=== PATIENT | male | born 1935 | race American Indian/Alaskan Native ===

== ENCOUNTER 2018-10-02 09:41 | Emergency (ER) | payer SELFPAY ==
[2018-10-02 10:15] LABS: Absolute Lymphocytes (CBC) 0.7 K/uL (0.7-4.9); Absolute Monocytes 0.3 K/uL (0.1-1.3); Absolute Neutrophil 2.9 K/uL (1.8-8.0); Basophils % 0.9 % (0-1.3); Eosinophils % 11.5 % (0-4.4); Hematocrit 35.7 % (39.6-49.0); MCH 29.4 pg (27.0-35.0); MCV 85.7 fL (80-100); MPV 8.1 fL (7.6-11.3); Monocytes % 7.3 % (3.3-12.3); RBC Red Blood Cell Count 4.17 M/uL (4.33-5.43)
[2018-10-02] MEDS ORDERED: OLANZapine 10 MG TABLET PO ONE (10:15)
[2018-10-02 10:18] LABS: Protime INR 0.97
[2018-10-02 10:35] LABS: ALT/SGPT 25 U/L (12-78); AST/SGOT 15 U/L (15-37); Albumin 3.2 g/dL (3.4-5.0); Alkaline Phosphatase 85 U/L (45-117); BUN Blood Urea Nitrogen 19 mg/dL (7-18); Bicarbonate 25 mmol/L (21-32); Bilirubin Direct < 0.1 mg/dL (0-0.2); Bilirubin Total 0.3 mg/dL (0.2-1.0); Glucose Level 123 mg/dL (74-106); Protein, Total 6.8 g/dL (6.4-8.2); Sodium Level 141 mmol/L (136-145)
[2018-10-02 11:22] LABS: Barbiturates NEGATIVE (NEGATIVE); Benzodiazepines NEGATIVE (NEGATIVE); Cocaine NEGATIVE (NEGATIVE); METHAMPHETAM NEGATIVE (NEGATIVE); Methadone NEGATIVE (NEGATIVE); Opiates NEGATIVE (NEGATIVE); Phencyclidine NEGATIVE (NEGATIVE); THC Cannibis NEGATIVE (NEGATIVE)
--- NOTE | 2018-10-02 12:58 | EKG ---
Test Date: 2018-10-02 Test Time: 10:23:58 Male Impersonator: LEMUEL MEASUREMENT RESULTS: Intervals: Rate: 75 ND: 212 QRSD: 94 QT: 392 QTc: 437 [place]: P: 61 ND: 212 QRS: -8 T: 29 INTERPRETIVE STATEMENTS: Sinus rhythm with sinus arrhythmia with 1st degree AV block Otherwise normal ECG No previous ECG available for comparison Electronically Signed On 10-02-18 12:57:33 TRANSFER PROFESSOR by Torres Vizcarra
--- NOTE | 2018-10-02 15:58 | EDPHYS ---
Physician Documentation [facility] Name: Jose Thomas Age: 83 yrs Sex: Male : 1935 Arrival Date: 10/02/2018 Time: 09:44 Bed 5 Private MD: ED Physician Heide Tovar HPI: 10/02 10:12 This 83 yrs old Male presents to ER via EMS with complaints of Depression. ma2 10:12 The patient presents to the emergency department with depression. Onset: The ma2 symptoms/episode began/occurred gradually, 1 week(s) ago. Associated signs and symptoms: Pertinent positives; Pertinent negatives: abdominal pain, chest pain, fever, headache, shortness of breath, substance abuse, suicide ideation, vomiting. Severity of symptoms: At their worst the symptoms were moderate severe in the emergency department the symptoms. The patient has experienced similar episodes in the past. off his medication for 1 month . Historical: - Allergies: 09:47 No Known Allergies; sv - PMHx: 09:47 Bipolar disorder; Depression; sv - Immunization history:: Adult Immunizations up to date, Flu vaccine is up to date. - Social history:: Smoking status: Patient/guardian denies using tobacco, Patient/guardian denies using alcohol, street drugs, The patient lives with family. - Ebola Screening: : No symptoms or risks identified at this time. - Family history:: not pertinent, pertinent for. - Hospitalizations: : No recent hospitalization is reported. ROS: 10:12 Constitutional: Negative for fever, chills, and weight loss, Neck: Negative for injury, ma2 pain, and swelling, Respiratory: Negative for shortness of breath, cough, wheezing, and pleuritic chest pain. 10:12 Psych: Positive for depression. 10:12 All other systems are negative. Exam: 10:12 Constitutional: This is a well developed, well nourished patient who is awake, alert, ma2 and in no acute distress. Chest/axilla: Normal chest wall appearance and motion. Nontender with no deformity. No lesions are appreciated. Cardiovascular: Regular rate and rhythm with a normal S1 and S2. No gallops, murmurs, or rubs. Normal PMI, no JVD. No pulse deficits. Respiratory: Lungs have equal breath sounds bilaterally, clear to auscultation and percussion. No rales, rhonchi or wheezes noted. No increased work of breathing, no retractions or nasal flaring. 10:12 Psych: Affect is flat, Oriented to person, place, time, Patient has no thoughts/intents to harm self or others. Vital Signs: 09:35 BP 137 / 86; Pulse 77; Resp 18; Temp 97.4; Pulse Ox 99% ; Weight 99.79 kg; Height 5 ft. sv 9 in. (175.26 cm); Pain 8/10; 10:53 BP 130 / 81; Pulse 63; Resp 18; Pulse Ox 97% ; sv 11:34 BP 132 / 74; Pulse 61; Resp 18; Pulse Ox 97% ; ph 12:36 BP 136 / 69; Pulse 67; Resp 18; Pulse Ox 99% ; sv 13:38 Pulse 70; Resp 16; Pulse Ox 99% ; sv 15:23 BP 146 / 93; Pulse 80; Resp 18; Pulse Ox 98% on NC; sv 09:35 Body Mass Index 32.49 (99.79 kg, 175.26 cm) sv MDM: 09:45 Patient medically screened. ma2 10:12 Differential diagnosis: acute psychotic break, depression, psychosis secondary to ma2 non-compliance. 12:27 Data reviewed: vital signs, nurses notes. ma2 12:27 Counseling: I had a detailed discussion with the patient and/or guardian regarding: the [facility] historical points, exam findings, and any diagnostic results supporting the discharge/admit diagnosis, the presence of at least one elevated blood pressure reading (>120/80) during this emergency department visit, the need for outpatient follow up. Medical screen evaluation completed. [facility] emergency medical condition absent. Response to treatment: the patient's symptoms have markedly improved after treatment. ED course: medically cleared,, will have mobile psych assessment team evaluate him.. received Zyprexa in er . 15:56 ED course: no SI, psych will see him in the office in 2 days,. ma2 10/02 09:56 Order name: Acetaminophen; Complete Time: 12:27 ma2 10/02 09:56 Order name: Basic Metabolic Panel; Complete Time: 12:27 ma2 10/02 09:56 Order name: CBC with Diff; Complete Time: 12:27 ma2 10/02 09:56 Order name: ETOH Level; Complete Time: 12:27 ma2 10/02 09:56 Order name: Hepatic Function; Complete Time: 12:27 [facility] 10/02 09:56 Order name: PT-INR; Complete Time: 12:27 [facility] 10/02 09:56 Order name: Ptt, Activated; Complete Time: 12:27 ca10/02 09:56 Order name: Salicylate; Complete Time: 12:27 [facility] 10/02 09:56 Order name: Urine Drug Screen; Complete Time: 12:27 [facility] 10/02 09:56 Order name: EKG; Complete Time: 09:57 ca2 10/02 09:56 Order name: EKG - Nurse/Tech; Complete Time: 10:50 ca10/02 09:56 Order name: IV Saline Lock; Complete Time: 10:03 [facility] 10/02 09:56 Order name: Labs collected and sent; Complete Time: 10:03 [facility] 10/02 09:56 Order name: Urine Dipstick-Ancillary (obtain specimen); Complete Time: 13:30 ma Administered Medications: 10:42 Drug: ZyPREXA 20 mg Route: PO; sv 13:29 Follow up: Response: No adverse reaction sv Disposition: 10/02/18 15:57 Discharged to Home. Impression: Major depressive disorder, recurrent. - Condition is Stable. - Prescriptions for Zyprexa 10 mg Oral Tablet - take 1 tablet by ORAL route once daily; 20 tablet. - Medication Reconciliation Form, Thank You Letter, Antibiotic Education, Prescription Opioid Use form. - Follow up: Private Physician; When: Tomorrow; Reason: Continuance of care. Signatures: Dispatcher [facility] Ling Christiansen RN RN sv Alzahri, Mohammad, MD MD ma2 Corrections: (The following items were deleted from the chart) 16:43 15:57 10/02/2018 15:57 Discharged to Home. Impression: Major depressive disorder, sv recurrent. Condition is Stable. Forms are Medication Reconciliation Form, Thank You Letter, Antibiotic Education, Prescription Opioid Use. Follow up: Private Physician; When: Tomorrow; Reason: Continuance of care. ma2
--- NOTE | 2018-10-02 15:58 | ER ---
Nurse's Notes [facility] Name: Jose Thomas Age: 83 yrs Sex: Male : 1935 Arrival Date: 10/02/2018 Time: 09:44 Bed 5 Private MD: Diagnosis: Major depressive disorder, recurrent Presentation: 10/02 09:34 Presenting complaint: EMS states: called out for back pain but pt's only complaint is sv being depressed x 3 days. Pt has been out of his Bipolar medications for about a month. Transition of care: patient was not received from another setting of care. Onset of symptoms was September 29, 2018. Risk Assessment: Do you want to hurt yourself or someone else? Patient reports no desire to harm self or others. Initial Sepsis Screen: Does the patient meet any 2 criteria? No. Patient's initial sepsis screen is negative. Does the patient have a suspected source of infection? No. Patient's initial sepsis screen is negative. Care prior to arrival: None. 09:34 Method Of Arrival: EMS: [facility] sv 09:34 Acuity: HAO 4 sv 09:35 Presenting complaint: Patient states: that he was in [facility] last month for the same thing and was sent home with medications but ran out and did not have enough money to pay for them again. Pt denies suicidal or homicidal ideation. Triage Assessment: 09:35 General: Appears in no apparent distress. comfortable, well groomed, well developed, sv Behavior is calm, cooperative, appropriate for age. Pain: Denies pain. EENT: No signs and/or symptoms were reported regarding the EENT system. Neuro: Level of Consciousness is awake, alert, obeys commands, Oriented to person, place, time, situation, Moves all extremities. Full function Gait is steady, Speech is normal, Facial symmetry appears normal. Cardiovascular: Patient's skin is warm and dry. Respiratory: Respiratory effort is even, unlabored, Respiratory pattern is regular, symmetrical. Derm: Skin is pink, warm \T\ dry. Historical: - Allergies: 09:47 No Known Allergies; sv - PMHx: :47 Bipolar disorder; Depression; sv - Immunization history:: Adult Immunizations up to date, Flu vaccine is up to date. - Social history:: Smoking status: Patient/guardian denies using tobacco, Patient/guardian denies using alcohol, street drugs, The patient lives with family. - Ebola Screening: : No symptoms or risks identified at this time. - Family history:: not pertinent, pertinent for. - Hospitalizations: : No recent hospitalization is reported. Screenin:49 Abuse screen: Denies threats or abuse. Denies injuries from another. Nutritional sv screening: No deficits noted. Tuberculosis screening: No symptoms or risk factors identified. Fall Risk None identified. Assessment: 11:33 Reassessment: Patient appears in no apparent distress at this time. Patient and/or ph family updated on plan of care and expected duration. Pain level reassessed. Patient is alert, oriented x 3, equal unlabored respirations, skin warm/dry/pink. Pt resting quietly, VSS. 13:38 Reassessment: Patient appears in no apparent distress at this time. No changes from sv previously documented assessment. Patient and/or family updated on plan of care and expected duration. Pain level reassessed. Patient is alert, oriented x 3, equal unlabored respirations, skin warm/dry/pink. Pt informed we are waiting for [facility] to [facility] speak with the pt. 14:15 Reassessment: Patient appears in no apparent distress at this time. No changes from sv previously documented assessment. Patient and/or family updated on plan of care and expected duration. Pain level reassessed. Patient is alert, oriented x 3, equal unlabored respirations, skin warm/dry/pink. 15:26 Reassessment: Patient appears in no apparent distress at this time. No changes from sv previously documented assessment. Patient and/or family updated on plan of care and expected duration. Pain level reassessed. Patient is alert, oriented x 3, equal unlabored respirations, skin warm/dry/pink. Valery from [facility] at bedside speaking with the pt. 16:13 Reassessment: Patient appears in no apparent distress at this time. No changes from sv previously documented assessment. Patient and/or family updated on plan of care and expected duration. Pain level reassessed. Patient is alert, oriented x 3, equal unlabored respirations, skin warm/dry/pink. 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 sv 16:37 Reassessment: Waiting for bus pass for pt from subwarehouse supervisor. sv Psych: 09:49 Subjective: Delusions are denied, Hallucinations are denied. Objective: Patient is sv cooperative, Speech is normal, Affect is appropriate. Suicide Risk Assessment: Sad Person Scale: Sex of patient: Male: Score 1 point. Age of patient: Score 1 point if patient is over 65. Depression: Score 1 point if signs of depression are present. Previous Attempt: Score 1 point if patient has previously attempted suicide. Substance Abuse: Score 0 point if patient does not abuse alcohol or drugs. Rational Thinking: Score 0 point if patient has rational thinking. Social Support: Score 0 if social support is present/available. Organized Plan: Score 0 if patient did not have an organized plan in place. Relationship: Score 1 point if patient is , , , or for a single male Chronic Sickness: Score 0 point if patient does not have a chronic illness, debilitating, or severe disorder. TOTAL POINTS: If total points are 5-6, proposed clinical action is to strongly consider hospitalization, depending upon confidence in the follow-up arrangement. Implement suicide precautions. Pt denies substance abuse. Vital Signs: 09:35 BP 137 / 86; Pulse 77; Resp 18; Temp 97.4; Pulse Ox 99% ; Weight 99.79 kg; Height 5 ft. sv 9 in. (175.26 cm); Pain 8/10; 10:53 BP 130 / 81; Pulse 63; Resp 18; Pulse Ox 97% ; sv 11:34 BP 132 / 74; Pulse 61; Resp 18; Pulse Ox 97% ; ph 12:36 BP 136 / 69; Pulse 67; Resp 18; Pulse Ox 99% ; sv 13:38 Pulse 70; Resp 16; Pulse Ox 99% ; sv 15:23 BP 146 / 93; Pulse 80; Resp 18; Pulse Ox 98% on NC; sv 09:35 Body Mass Index 32.49 (99.79 kg, 175.26 cm) sv ED Course: 09:44 Patient arrived in ED. sv 09:44 Ling Royal RN is Primary Nurse. sv 09:45 Heide Tovar MD is Attending Physician. ma2 09:47 Triage completed. sv 09:48 Arm band placed on Patient placed in an exam room, on a stretcher, on pulse oximetry. sv 09:49 Patient has correct armband on for positive identification. Bed in low position. Call sv light in reach. Door closed. Warm blanket given. Head of bed elevated. 10:00 Initial lab(s) drawn, by me, sent to lab. Inserted saline lock: 20 gauge in left hand, sv using aseptic technique. Blood collected. Flushed left hand with 5 ml normal saline. 10:24 EKG done, by medical chief technician. reviewed by Heide Tovar MD. [facility] 10:27 Urine Drug Screen Sent. [facility] 10:27 Urine collected: clean catch specimen, clear. [facility] 10:40 Warm blanket given. ASSISTANCE WITH GETTING CLEANED UP AND CHANGING BEDDING . [facility] 13:23 called [facility] and spoke with Veena. She will call a screener to come gm evaluate the patient. 16:13 No provider procedures requiring assistance completed. IV discontinued, intact, sv bleeding controlled, No redness/swelling at site. Pressure dressing applied. Administered Medications: 10:42 Drug: ZyPREXA 20 mg Route: PO; sv 13:29 Follow up: Response: No adverse reaction sv Output: 13:39 Urine: 1000ml (Voided); Total: 1000ml. sv Outcome: 15:57 Discharge ordered by . [facility] 16:13 Discharged to home ambulatory. sv 16:13 Condition: stable 16:13 Discharge instructions given to patient, Instructed on discharge instructions, follow up and referral plans. medication usage, Demonstrated understanding of instructions, follow-up care, medications, Prescriptions given X 1. 16:43 Patient left the ED. sv Signatures: Ling Royal RN Jolene Maxwell, life science research assistant EKG Tat1 Bailey Stone RN RN Linh London [facility] Heide Tovar MD MD tx2 Luiza Caceres Corrections: (The following items were deleted from the chart) 09:49 09:35 Presenting complaint: Patient states: that he was in [facility] last month for sv the same thing and was sent home with medications but ran out and did not have enough money to pay for them again. sv
== END 2018-10-02 16:43 | disposition home or self-care (01) ==
LOC: ER 09:41
DX: F33.0 Major depressive disorder, recurrent, mild (principal); I44.0 Atrioventricular block, first degree
CPT/HCPCS: 36415; 80048; 80076; 80307; 80320; 80329; 85025; 85610; 85730; 93005; 99284

== ENCOUNTER 2018-11-30 19:55 | Observation (INO) | payer OTHER, SELFPAY ==
[2018-11-30 20:30] LABS: Absolute Lymphocytes (CBC) 0.9 K/uL (0.7-4.9); Absolute Monocytes 0.5 K/uL (0.1-1.3); Absolute Neutrophil 2.6 K/uL (1.8-8.0); Basophils % 0.8 % (0-1.3); Eosinophils % 22.7 % (0-4.4); Hematocrit 43.4 % (39.6-49.0); Lymphocytes % 17.6 % (15.3-44.8); MPV 7.9 fL (7.6-11.3); Monocytes % 9.1 % (3.3-12.3); RBC Red Blood Cell Count 5.04 M/uL (4.33-5.43)
[2018-11-30 20:31] LABS: Protime INR 0.94
--- NOTE | 2018-11-30 20:49 | RAD REPORT ---
EXAM DESCRIPTION: CT - Head C Spine Mpr Wo Con - 11/30/2018 8:28 pm CLINICAL HISTORY: Head and neck injury status post fall. Head and neck pain COMPARISON: None. TECHNIQUE: Computed axial tomography of the head and cervical spine was obtained. Sagittal and coronal reconstruction was performed. All CT scans are performed using dose optimization technique as appropriate and may include automated exposure control or mA/KV adjustment according to patient size. FINDINGS: An intracranial bleed is not seen. Cerebral atrophy is noted. An extra-axial fluid collect ion is not noted. Partial opacification of sphenoid sinus is present consistent with sinusitis. Masto ids are clear A cervical fracture is not visualized. No dislocation is noted. 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 Moderate narrowing left neural foramina is present. Minimal posterior beltran bluxation of C6 on C7 is present IMPRESSION: No acute intracranial abnormality is seen. A cervical fracture is not visualized. If the patient continues to have symptoms to suggest intracra nial /spinal cord pathology then MRI would be recommended
--- NOTE | 2018-11-30 20:50 | RAD REPORT ---
EXAM DESCRIPTION: Johnnie Single View11/30/2018 8:45 pm CLINICAL HISTORY: Chest pain COMPARISON: none FINDINGS: The lungs appear clear of acute infiltrate. The heart is borderline enlarged IMPRESSION: No acute abnormalities displayed
--- NOTE | 2018-11-30 20:52 | RAD REPORT ---
EXAM DESCRIPTION: RAD - Pelvis - 11/30/2018 8:45 pm CLINICAL HISTORY: Pelvic pain status post injury FINDINGS: No fracture or dislocation is seen. The bones are osteoporotic
[2018-11-30 20:55] LABS: ALT/SGPT 25 U/L (12-78); AST/SGOT 21 U/L (15-37); Alkaline Phosphatase 92 U/L (45-117); BUN Blood Urea Nitrogen 12 mg/dL (7-18); Bicarbonate 24 mmol/L (21-32); Bilirubin Direct 0.1 mg/dL (0-0.2); Bilirubin Total 0.6 mg/dL (0.2-1.0); Creatine Phosphokinase 210 U/L (39-308); Glucose Level 112 mg/dL (74-106); Magnesium 2.4 mg/dL (1.8-2.4); NT PRO-BNP 88 pg/mL (<450); Potassium 4.1 mmol/L (3.5-5.1); Protein, Total 7.9 g/dL (6.4-8.2); Sodium Level 138 mmol/L (136-145); Troponin (Emerg Dept Use Only) < 0.02 ng/mL (0.0-0.045)
[2018-11-30] MEDS ORDERED: HYDRALAZINE HCL 20 MG/ML VIAL ONE (21:02)
[2018-11-30 21:48] LABS: Blood Morphology Comment NOT SEEN (NOT SEEN); Platelet Estimate ADEQ
--- NOTE | 2018-11-30 22:53 | EDPHYS ---
Physician Documentation [facility] Name: Jose Thomas Age: 83 yrs Sex: Male : 1935 Arrival Date: 11/30/2018 Time: 19:56 Bed 3 Private MD: ED Physician Tanner Evans HPI: 11/30 21:05 This 83 yrs old Male presents to ER via EMS with complaints of General weakness, jr8 Headache. 21:05 Patient came in via EMS for fall yesterday. Patient alert and oriented to person, jr8 place, time, event upon arrival. Stated that he remembers getting dizzy yesterday and then fell. Stated that he felt short of breath today. Positive for syncope. [facility] since yesterday. EMS called this evening for transport. Complains only of headache. . Severity of symptoms: At their worst the symptoms were moderate in the emergency department the symptoms are unchanged. The patient has not experienced similar symptoms in the past. The patient has not recently seen a physician. Historical: - Allergies: 20:19 No Known Allergies; fc - PMHx: 20:19 Bipolar disorder; Depression; Hypertension; Myocardial infarction; Headaches; CVA; fc diptheria; - PSHx: 20:19 Hemorroids; fc - Immunization history:: Last tetanus immunization: unknown, Flu vaccine is not up to date. - Social history:: Smoking status: Patient/guardian denies using tobacco, Patient/guardian denies using alcohol, street drugs. - Ebola Screening: : Patient negative for fever greater than or equal to 101.5 degrees Fahrenheit, and additional compatible Ebola Virus Disease symptoms Patient denies exposure to infectious person Patient denies travel to an Ebola-affected area in the 21 days before illness onset. ROS: 21:05 Eyes: Negative for injury, pain, redness, and discharge, ENT: Negative for injury, jr8 pain, and discharge, Neck: Negative for injury, pain, and swelling, Cardiovascular: Negative for chest pain, palpitations, and edema, Respiratory: Negative for cough, wheezing, and pleuritic chest pain, Abdomen/GI: Negative for abdominal pain, nausea, vomiting, diarrhea, and constipation, Back: Negative for injury and pain, MS/Extremity: Negative for injury and deformity, Skin: Negative for injury, rash, and discoloration. 21:05 Neuro: Positive for dizziness, headache, syncope, Negative for altered mental status, gait disturbance, hearing loss, numbness, seizure activity, speech changes, tingling, tinnitus, tremor, visual changes, weakness. Exam: 21:05 Head/Face: Normocephalic, atraumatic. Eyes: Pupils equal round and reactive to light, jr8 extra-ocular motions intact. Lids and lashes normal. Conjunctiva and sclera are non-icteric and not injected. Cornea within normal limits. Periorbital areas with no swelling, redness, or edema. ENT: Nares patent. No nasal discharge, no septal abnormalities noted. Tympanic membranes are normal and external auditory canals are clear. Oropharynx with no redness, swelling, or masses, exudates, or evidence of obstruction, uvula midline. Mucous membranes moist. Neck: Trachea midline, no thyromegaly or masses palpated, and no cervical lymphadenopathy. Supple, full range of motion without nuchal rigidity, or vertebral point tenderness. No Meningismus. Chest/axilla: Normal chest wall appearance and motion. Nontender with no deformity. No lesions are appreciated. Cardiovascular: Regular rate and rhythm with a normal S1 and S2. No gallops, murmurs, or rubs. Normal PMI, no JVD. No pulse deficits. Respiratory: Lungs have equal breath sounds bilaterally, clear to auscultation and percussion. No rales, rhonchi or wheezes noted. No increased work of breathing, no retractions or nasal flaring. Abdomen/GI: Soft, non-tender, with normal bowel sounds. No distension or tympany. No guarding or rebound. No evidence of tenderness throughout. Back: No spinal tenderness. No costovertebral tenderness. Full range of motion. Skin: Warm, dry with normal turgor. Normal color with no rashes, no lesions, and no evidence of cellulitis. MS/ Extremity: Pulses equal, no cyanosis. Neurovascular intact. Full, normal range of motion. Neuro: Awake and alert, GCS 15, oriented to person, place, time, and situation. Cranial nerves II-XII grossly intact. Motor strength 5/5 in all extremities. Sensory grossly intact. Cerebellar exam normal. Normal gait. Vital Signs: 19:55 BP 192 / 137; Pulse 74; Resp 18; Temp 97.7(O); Pulse Ox 100% on R/A; Weight 106.59 kg fc (R); Height 5 ft. 10 in. (177.80 cm) (R); Pain 0/10; 20:59 BP 152 / 109; Pulse 72; Resp 14 S; Pulse Ox 100% on R/A; jd3 21:55 BP 167 / 107; Pulse 85; Resp 18 S; Pulse Ox 100% on R/A; jd3 22:56 BP 177 / 90; Pulse 89; Resp 17; Pulse Ox 100% on R/A; mt 12/01 00:17 BP 145 / 98; Pulse 91; Resp 22; Temp 98.2; Pulse Ox 98% on R/A; fc 00:20 BP 135 / 74; Pulse 89; Resp 17 S; Pulse Ox 100% on R/A; jd3 11/30 19:55 Body Mass Index 33.72 (106.59 kg, 177.80 cm) MDM: 11/30 20:08 Patient medically screened. [facility] 22:48 Data reviewed: vital signs, nurses notes, lab test result(s), EKG, radiologic studies, [facility] CT scan, plain films, and as a result, I will admit patient. Data interpreted: Pulse oximetry: on room air is 100 %. Interpretation: normal. Counseling: I had a detailed discussion with the patient and/or guardian regarding: the historical points, exam findings, and any diagnostic results supporting the discharge/admit diagnosis, lab results, radiology results, the need for further work-up and treatment in the hospital. 11/30 20:08 Order name: Basic Metabolic Panel; Complete Time: 21:07 11/30 20:08 Order name: CBC with Diff; Complete Time: 21:56 11/30 20:08 Order name: LFT's; Complete Time: 21:07 11/30 20:08 Order name: Magnesium; Complete Time: 21:07 11/30 20:08 Order name: NT PRO-BNP; Complete Time: 21:07 11/30 20:08 Order name: PT-INR; Complete Time: 20:46 11/30 20:08 Order name: Troponin (emerg Dept Use Only); Complete Time: 21:07 11/30 20:08 Order name: CK; Complete Time: 21:07 11/30 21:48 Order name: Manual Differential; Complete Time: 21:56 EDMS 11/30 23:14 Order name: Basic Metabolic Panel EDMS 11/30 23:14 Order name: Basic Metabolic Panel EDOK 11/30 23:14 Order name: CBC with Automated Diff EDMS 11/30 23:14 Order name: CBC with Automated Diff EDMS 11/30 23:14 Order name: Lipid Profile EDOK 11/30 20:08 Order name: XRAY Chest (1 view); Complete Time: 20:53 jr8 11/30 20:08 Order name: EKG; Complete Time: 20:10 8 11/30 20:08 Order name: Cardiac monitoring; Complete Time: 20:09 8 11/30 20:08 Order name: EKG - Nurse/Tech; Complete Time: 20:09 8 11/30 20:08 Order name: IV Saline Lock; Complete Time: 20:10 8 11/30 20:08 Order name: Labs collected and sent; Complete Time: 20:10 8 11/30 20:09 Order name: CT Head C Spine; Complete Time: 20:53 jr8 11/30 20:09 Order name: XRAY Pelvis; Complete Time: 21:07 8 11/30 23:13 Order name: Heart Healthy EDOK 11/30 23:13 Order name: Echo with Doppler EDOK 11/30 23:14 Order name: Lipid Profile EDOK 11/30 23:14 Order name: Troponin I EDOK 11/30 23:14 Order name: Troponin I EDOK 11/30 23:14 Order name: Troponin I [facility] 11/30 20:08 Order name: O2 Per Protocol; Complete Time: 20:10 8 11/30 20:08 Order name: O2 Sat Monitoring; Complete Time: 20:10 Administered Medications: 20:59 Drug: hydrALAZINE 10 mg Route: IV; Rate: calculated rate; Site: right forearm; jd3 12/01 00:26 Follow up: Response: No adverse reaction; IV Status: Completed infusion jd3 00:30 Drug: Tylenol 1000 mg Route: PO; 00:45 Follow up: Response: No adverse reaction jd3 Disposition: 22:34 Co-signature as Attending Physician, Tanner Evans MD I agree with the assessment and tw4 plan of care. Disposition: 11/30/18 22:52 Hospitalization ordered by Heide Mead for Observation. Preliminary diagnosis are Hypertensive Urgency, Syncope and collapse. - Bed requested for Telemetry/MedSurg (observation). - Status is Observation. jd3 - Condition is Stable. - Problem is new. - Symptoms have improved. UTI on Admission? No Signatures: Dispatcher [employer] EDMS Caroline Jalloh RN RN fc Roszak, Josh, PA PA jr8 Juan Floyd RN RN jd3 Tanner Evans MD MD tw4 Leo Mcmahon RN RN rr5 Corrections: (The following items were deleted from the chart) 11/30 22:50 21:05 Patient came in via EMS for fall yesterday. Patient alert and oriented to person, jr8 place, time, event upon arrival. Stated that he remembers getting dizzy yesterday and then fell. Has been on ground of [facility] since yesterday. EMS called this evening for transport. Complains only of headache . jr8 22:51 21:05 Eyes: Negative for injury, pain, redness, and discharge, ENT: Negative for jr8 injury, pain, and discharge, Neck: Negative for injury, pain, and swelling, Cardiovascular: Negative for chest pain, palpitations, and edema, Respiratory: Negative for shortness of breath, cough, wheezing, and pleuritic chest pain, Abdomen/GI: Negative for abdominal pain, nausea, vomiting, diarrhea, and constipation, Back: Negative for injury and pain, MS/Extremity: Negative for injury and deformity, Skin: Negative for injury, rash, and discoloration, jr8 22:51 21:05 Neuro: Positive for dizziness, headache, Negative for altered mental status, gait jr8 disturbance, hearing loss, loss of consciousness, numbness, seizure activity, speech changes, syncope, near syncope, tingling, tinnitus, tremor, visual changes, weakness, jr8 23:52 22:52 Hospitalization Ordered by Heide Mead MD for Observation. Preliminary rr5 diagnosis is Hypertensive Urgency; Syncope and collapse. Bed requested for Telemetry/MedSurg (observation). Status is Observation. Condition is Stable. Problem is new. Symptoms have improved. UTI on Admission? No. jr8 12/01 00:54 11/30 23:52 11/30/2018 22:52 Hospitalization Ordered by Heide Mead MD for jd3 Observation. Preliminary diagnosis is Hypertensive Urgency; Syncope and collapse. Bed requested for Telemetry/MedSurg (observation). Status is Observation. Condition is Stable. Problem is new. Symptoms have improved. UTI on Admission? No. rr5
--- NOTE | 2018-11-30 22:53 | ER ---
Nurse's Notes [facility] Name: Jose Thomas Age: 83 yrs Sex: Male : 1935 Arrival Date: 11/30/2018 Time: 19:56 Bed 3 Private MD: Diagnosis: Hypertensive Urgency;Syncope and collapse Presentation: 11/30 19:55 Method Of Arrival: EMS: [facility] 19:55 Presenting complaint: EMS states: that pt got up last night at midnight and fell. Has fc been lying on the floor since then. States that when he stands he gets dizzy. Also having on and off headaches. Transition of care: [facility]. Onset of symptoms was November 30, 2018 at 00:00. Risk Assessment: Do you want to hurt yourself or someone else? Patient reports no desire to harm self or others. Initial Sepsis Screen: Does the patient meet any 2 criteria? No. Patient's initial sepsis screen is negative. Does the patient have a suspected source of infection? No. Patient's initial sepsis screen is negative. Care prior to arrival: None. 19:55 Acuity: HAO 3 Triage Assessment: 19:55 Headache History: The patient has had previous headaches and this one is similar to previous episodes. 12/01 00:21 Pain: Pain level that patient reports is acceptable is 3 out of 10 on a pain scale. jd3 Pain began gradually, Also complains of decreased appetite. Historical: - Allergies: 11/30 20:19 No Known Allergies; fc - PMHx: 20:19 Bipolar disorder; Depression; Hypertension; Myocardial infarction; Headaches; CVA; fc diptheria; - PSHx: 20:19 Hemorroids; fc - Immunization history:: Last tetanus immunization: unknown, Flu vaccine is not up to date. - Social history:: Smoking status: Patient/guardian denies using tobacco, Patient/guardian denies using alcohol, street drugs. - Ebola Screening: : Patient negative for fever greater than or equal to 101.5 degrees Fahrenheit, and additional compatible Ebola Virus Disease symptoms Patient denies exposure to infectious person Patient denies travel to an Ebola-affected area in the 21 days before illness onset. Screenin:55 Abuse screen: Denies threats or abuse. Nutritional screening: No deficits noted. Tuberculosis screening: No symptoms or risk factors identified. Fall Risk Fall in past 12 months (25 points). Secondary diagnosis (15 points) TIA, No IV (0 pts). Ambulatory Aid- None/Bed Rest/Nurse Assist (0 pts). Gait- Weak (10 pts.). Mental Status- Overestimates/Forgets Limitations (15 pts.). Total Mario Fall Scale indicates High Risk Score (45 or more points). Fall prevention measures have been instituted. Side Rails Up X 2 Placed Close to Nursing Station Frequent Obs/Assessments Occuring As available patient and family educated on Fall Prevention Program and Strategies. Assessment: 20:00 General: Appears in no apparent distress. uncomfortable, Behavior is calm, cooperative, jd3 appropriate for age, Reports fatigue for. Pain: Denies pain. Neuro: Level of Consciousness is awake, alert, obeys commands, Oriented to person, place, time, situation, Appropriate for age Speech is normal, Reports a syncopal episode weakness. Cardiovascular: Heart tones S1 S2 present Capillary refill < 3 seconds Patient's skin is warm and dry. Respiratory: Airway is patent Respiratory effort is even, unlabored, Respiratory pattern is regular, symmetrical, Breath sounds are clear bilaterally. GI: Abdomen is round Bowel sounds present X 4 quads. Abd is soft and non tender X 4 quads. : No signs and/or symptoms were reported regarding the genitourinary system. EENT: No signs and/or symptoms were reported regarding the EENT system. Derm: Skin is intact, Skin is dry, Skin is normal, Skin temperature is warm. Musculoskeletal: Circulation, motion, and sensation intact. 20:59 Reassessment: Patient appears in no apparent distress at this time. Patient and/or jd3 family updated on plan of care and expected duration. Pain level reassessed. Patient is alert, oriented x 3, equal unlabored respirations, skin warm/dry/pink. 21:56 Reassessment: Patient appears in no apparent distress at this time. No changes from jd3 previously documented assessment. Patient and/or family updated on plan of care and expected duration. Pain level reassessed. Patient is alert, oriented x 3, equal unlabored respirations, skin warm/dry/pink. 22:30 Reassessment: Patient appears in no apparent distress at this time. No changes from jd3 previously documented assessment. Patient and/or family updated on plan of care and expected duration. Pain level reassessed. Patient is alert, oriented x 3, equal unlabored respirations, skin warm/dry/pink. 23:30 Reassessment: Patient appears in no apparent distress at this time. Patient and/or jd3 family updated on plan of care and expected duration. Pain level reassessed. Patient is alert, oriented x 3, equal unlabored respirations, skin warm/dry/pink. 12/01 00:20 Reassessment: Patient appears in no apparent distress at this time. Patient and/or jd3 family updated on plan of care and expected duration. Pain level reassessed. Patient is alert, oriented x 3, equal unlabored respirations, skin warm/dry/pink. 00:28 Reassessment: Pt complained of headache. Discussed with Isael MCCURDY and pt to get Tylenol fc 1000 mg po. Vital Signs: 11/30 19:55 BP 192 / 137; Pulse 74; Resp 18; Temp 97.7(O); Pulse Ox 100% on R/A; Weight 106.59 kg fc (R); Height 5 ft. 10 in. (177.80 cm) (R); Pain 0/10; 20:59 BP 152 / 109; Pulse 72; Resp 14 S; Pulse Ox 100% on R/A; jd3 21:55 BP 167 / 107; Pulse 85; Resp 18 S; Pulse Ox 100% on R/A; jd3 22:56 BP 177 / 90; Pulse 89; Resp 17; Pulse Ox 100% on R/A; mt 12/01 00:17 BP 145 / 98; Pulse 91; Resp 22; Temp 98.2; Pulse Ox 98% on R/A; fc 00:20 BP 135 / 74; Pulse 89; Resp 17 S; Pulse Ox 100% on R/A; jd3 11/30 19:55 Body Mass Index 33.72 (106.59 kg, 177.80 cm) ED Course: 11/30 19:55 No provider procedures requiring assistance completed. 19:55 Arm band placed on Patient placed in an exam room, on a stretcher. 19:55 Patient has correct armband on for positive identification. Placed in gown. Bed in low fc position. Call light in reach. Side rails up X2. monitoring engineer on. Pulse ox on. NIBP on. 19:56 Patient arrived in ED. al2 20:08 Isael Bravo PA is PHCP. jr8 20:08 Tanner Evans MD is Attending Physician. jr8 20:08 EKG done, by ED staff, reviewed by Tanner Evans MD. Inserted saline lock: 20 gauge mt in right forearm, using aseptic technique. by KRYSTAL Quiroz. 20:10 Triage completed. fc 20:22 Juan Floyd RN is Primary Nurse. jd3 20:[address] via stretcher. nj 20:28 CT Head C Spine In Process Unspecified. EDMS 20:29 CT completed. Patient tolerated procedure well. Patient moved back from CT. nj 20:44 XRAY Chest (1 view) In Process Unspecified. EDMS 20:46 XRAY Pelvis In Process Unspecified. EDMS 22:51 Heide Mead MD is Hospitalizing Provider. jr8 22:56 Cleaned of incontinence. aa1 12/01 00:16 Patient admitted, IV remains in place. fc Administered Medications: 11/30 20:59 Drug: hydrALAZINE 10 mg Route: IV; Rate: calculated rate; Site: right forearm; jd3 12/01 00:26 Follow up: Response: No adverse reaction; IV Status: Completed infusion jd3 00:30 Drug: Tylenol 1000 mg Route: PO; fc 00:45 Follow up: Response: No adverse reaction jd3 Outcome: 11/30 22:52 Decision to Hospitalize by Provider. jr8 12/01 00:16 Admitted to Tele accompanied by tech, via stretcher, room 426, with chart, Report fc called to Casie RICE Condition: good Discharge instructions given to family, Instructed on the need for admit, Demonstrated understanding of instructions. 00:54 Patient left the ED. jd3 Signatures: Dispatcher [employer] EDMS Gabriella Lopez RN RN aa1 Caroline Jalloh RN RN Isael Bravo PA PA jr8 She[place] mt Davies, Jonathon, RN RN jd3 Love, Angelica al2 Corrections: (The following items were deleted from the chart) 11/30 20:16 19:55 BP 192 / 137; Pulse 74bpm; Resp 18bpm; Pulse Ox 100% RA; 106.59 kg Reported; fc Height 5 ft. 10 in. Reported; BMI: 33.7; Pain 0/10; fc 20:24 20:00 Musculoskeletal: Circulation, motion, and sensation intact. Range of motion: jd3 intact in all extremities, jd3
[2018-11-30] MEDS ORDERED: ALPRAZOLAM 0.25 MG TABLET PO PRN (23:10)
[2018-11-30] MEDS ORDERED: MORPHINE 4 MG/ML SYR IV PRN (23:10)
[2018-11-30] MEDS ORDERED: ZOLPIDEM TARTRATE 5 MG TABLET PO PRN (23:10)
[2018-11-30] MEDS ORDERED: ACETAMINOPHEN 500 MG TAB PO PRN (23:10)
[2018-12-01] MEDS ORDERED: ACETAMINOPHEN 500 MG TAB ONE (00:40)
[2018-12-01 01:06] VITALS: BMI 32.8
[2018-12-01 03:57] LABS: Urine Appearance CLEAR; Urine Bilirubin NEGATIVE (NEG); Urine Blood NEGATIVE (NEG); Urine Color YELLOW; Urine Glucose NEGATIVE (NEG); Urine Protein NEGATIVE (NEG)
[2018-12-01 04:16] LABS: Urine Bacteria <20 /HPF (NONE SEEN); Urine Culture Reflex Order NOT NEEDED; Urine RBC <5 /HPF (NONE SEEN)
[2018-12-01 05:13] LABS: Absolute Monocytes 0.4 K/uL (0.1-1.3); Absolute Neutrophil 2.3 K/uL (1.8-8.0); Basophils % 1.1 % (0-1.3); Hematocrit 39.5 % (39.6-49.0); Lymphocytes % 21.8 % (15.3-44.8); MPV 8.2 fL (7.6-11.3); Monocytes % 8.8 % (3.3-12.3); RBC Red Blood Cell Count 4.67 M/uL (4.33-5.43)
[2018-12-01 05:23] LABS: Eosinophils % 20.9 % (0-4.4)
[2018-12-01 05:30] LABS: Potassium 3.7 mmol/L (3.5-5.1)
--- NOTE | 2018-12-01 05:47 | P.HP ---
Certification for Inpatient Patient admitted to: Observation With expected LOS: <2 Midnights Patient will require the following post-hospital care: None Practitioner: I am a practitioner with admitting privileges, knowledge of patient current condition, hospital course, and medical plan of care. Services: Services provided to patient in accordance with Admission requirements found in Title 42 Section 412.3 of the Code of Federal Regulations Patient History Date of Service: 11/30/18 Reason for admission: Syncope History of Present Illness: Patient is an 83-year-old gentleman who came into the hospital after passing out. Patient has been living at the [facility]. 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 He is only able to get food stamps since he is not a citizen. He is unable to get back to his family in [place]. He has a son and a daughter who still live in [facility] along with his grandchildren. He would love to get back there. He states he was not doing anything in particular when he suddenly passed out. He landed on his elbow and his knees. His knees are still sore. His workup in the ER was unremarkable. He will be monitored and worked up for a syncopal event. Allergies No Known Allergies Allergy (Unverified 10/02/18 10:09) - Past Medical/Surgical History Has patient received pneumonia vaccine in the past: Yes Diabetic: No -: Bipolar -: Depression -: HTN -: headaches -: CVA -: hemorroidectomy - Family History Father Medical History: Stroke Mother Medical History: Kidney disease - Social History Smoking Status: Never smoker Alcohol use: No CD- Drugs: No Caffeine use: Yes Place of Residence: [facility] Review of Systems 10-point ROS is otherwise unremarkable Physical Examination - Vital Signs Temperature: 98.4 F Blood Pressure: 140/73 Pulse: 84 Respirations: 20 Pulse Ox (%): 96 - Physical Exam General: Alert, In no apparent distress, Oriented x3 HEENT: Atraumatic, PERRLA, Mucous membr. moist/pink, EOMI, Sclerae nonicteric Neck: Supple, 2+ carotid pulse no bruit, No LAD, Without JVD or thyroid abnormality Respiratory: Clear to auscultation bilaterally, Normal air movement Cardiovascular: Regular rate/rhythm, Normal S1 S2, Systolic murmur Gastrointestinal: Normal bowel sounds, Soft and benign, Non-distended, No tenderness Musculoskeletal: No clubbing, No swelling, No tenderness Integumentary: No rashes Neurological: Normal gait, Normal speech, Normal strength at 5/5 x4 extr, Normal tone, Sensation intact, Cranial nerves 3-12 intact, Normal affect Lymphatics: No axilla or inguinal lymphadenopathy - Studies Laboratory Data (last 24 hrs) 11/30/18 20:10: PT 11.1, INR 0.94 11/30/18 20:10: WBC 5.1, Hgb 14.0, Hct 43.4, Plt Count 211 11/30/18 20:10: Sodium 138, Potassium 4.1, BUN 12, Creatinine 0.92, Glucose 112 H, Magnesium 2.4, Total Bilirubin 0.6, AST 21, ALT 25, Alkaline Phosphatase 92 Assessment & Plan - Problems (Diagnosis) (1) Syncope Current Visit: Yes Status: Acute (2) Dyslipidemia Current Visit: Yes Status: Acute (3) Eosinophilia Current Visit: Yes Status: Acute (4) HTN (hypertension) Current Visit: Yes Status: Acute (5) Depression Current Visit: Yes Status: Acute - Plan Plan: 1. Monitor on telemetry 2. Peripheral blood smear review 3. If diarrhea check for parasites 4. 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 Echocardiogram and carotid Doppler 6. Statin therapy and anti-platelet therapy and monitor blood pressure closely 7. GI and DVT prophylaxis - Advance Directives Does patient have a Living Will: No Does patient have a Durable POA for Healthcare: No - Code Status/Comfort Care Code Status Assessed: Yes Code Status: Full Code Critical Care: No Time Spent Managing PTS Care (In Minutes): 50
--- NOTE | 2018-12-01 06:47 | EKG ---
Test Date: 2018-11-30 Test Time: 20:02:05 Feather Trimmer: BRYON MEASUREMENT RESULTS: Intervals: Rate: 74 DE: 204 QRSD: 90 QT: 406 QTc: 450 [place]: P: 66 DE: 204 QRS: -20 T: 42 INTERPRETIVE STATEMENTS: Normal sinus rhythm Normal ECG Compared to ECG 10/02/2018 10:23:58 Sinus arrhythmia no longer present First degree AV block no longer present Electronically Signed On 12-01-18 06:46:23 MOTHERCRAFT NURSE by Torres Vizcarra
[2018-12-01] MEDS ORDERED: INFLUENZA VACCINE (for 3y+) 0.5 ML DOSE IMVAC ONE (08:00)
[2018-12-01] MEDS ORDERED: PNEUMOCOCCAL VACCINE 0.5 ML IMVAC ONE (08:00)
[2018-12-01 08:03] LABS: Blood Morphology Comment NOT SEEN (NOT SEEN); Platelet Estimate ADEQ
--- NOTE | 2018-12-01 08:52 | RAD REPORT ---
EXAM DESCRIPTION: US - CP - 12/01/2018 8:35 am CLINICAL HISTORY: Syncope TIA/CVA COMPARISON: Head C Spine Mpr Wo Con dated 11/30/2018 TECHNIQUE: Real-time sonographic evaluation of both carotid systems was performed. Doppler interroga tion was performed with waveform tracing bilaterally. FINDINGS: Normal high resistance waveforms are noted in both external carotid arteries. The common c arotid arteries and internal carotid arteries show normal low resistance waveforms. Mild hard plaque is seen both carotid bulbs. Peak systolic and end diastolic velocity values and the ICA/CCA ratios are in the non-hemodynamically significant range. Vertebral arteries are poorly visualized. IMPRESSION: Mild hard plaque in both carotid bulbs. No evidence of a hemodynamically significant stenosis.
[2018-12-01] MEDS ORDERED: METOPROLOL TAR 50 MG TAB PO SCH (09:00)
[2018-12-01] MEDS ORDERED: ENOXAPARIN 40 MG/0.4 ML SQ SCH (09:00)
[2018-12-01] MEDS ORDERED: ASPIRIN EC 81 MG TAB PO SCH (09:00)
[2018-12-01 12:32] VITALS: BP 119/56; TEMP 97.8
--- NOTE | 2018-12-01 13:10 | ECHO ---
HEIGHT: 5 ft 10 in WEIGHT: 228 lb 9.6 oz DATE OF STUDY: 12/01/[address]: Heide Mead MD 2-DIMENSIONAL: YES M.MODE: YES DOPPLER: YES COLOR FLOW: YES TDS: NO PORTABLE: NO DEFINITY: NO BUBBLE STUDY: NO DIAGNOSIS: SYNCOPE CARDIAC HISTORY: CATHERIZATION: NO SURGERY: NO PROSTHETIC VALVE: NO PACEMAKER: NO MEASUREMENTS (cm) DIASTOLIC (NORMALS) SYSTOLIC (NORMALS) IVSd 1.1 (0.6-1.2) LA Diam (1.9-4.0) LVEF 69% LVIDd 4.1 (3.5-5.7) LVIDs 2.5 (2.0-3.5) %FS 38% LVPWd 1.3 (0.6-1.2) Ao Diam 3.4 (2.0-3.7) 2 DIMENSIONAL ASSESSMENT: RIGHT ATRIUM: NORMAL LEFT ATRIUM: NORMAL RIGHT VENTRICLE: NORMAL LEFT VENTRICLE: NORMAL TRICUSPID VALVE: NORMAL MITRAL VALVE: NORMAL PULMONIC VALVE: NORMAL AORTIC VALVE: NORMAL PERICARDIAL EFFUSION: NONE AORTIC ROOT: NORMAL LEFT VENTRICULAR WALL MOTION: NORMAL DOPPLER/COLOR FLOW: NORMAL COMMENTS: NORMAL 2D ECHOCARDIOGRAM WITH DOPPLER. NO WALL MOTION ABNORMALITY. NO EFFUSION. TECHNOLOGIST: Joss PURDY
[2018-12-01 13:59] VITALS: O2SAT 91
== END 2018-12-01 15:11 | disposition home or self-care (01) ==
LOC: ER 19:55 → ERHOLD 23:10 → 4TH 12-01 00:15
PROVIDERS: ADMIT Hospitalist; ATTEND Family Medicine
DX: R55 Syncope and collapse (principal); E78.5 Hyperlipidemia, unspecified; I10 Essential (primary) hypertension; D72.1 Eosinophilia; F32.9 Major depressive disorder, single episode, unspecified; Z86.73 Personal history of transient ischemic attack (TIA), and cerebral infarction without residual deficits; Z23 Encounter for immunization
CPT/HCPCS: 36415; 70450; 71045; 72125; 72170; 80048; 80061; 80076; 81001; 82550; 83735; 83880; 84484; 85025; 85610; 90670; 93005; 93306; 93880; 96365; 96366; 97163; 99285; G0008; G0009; G0378; J0360; J1650; Q2035

== ENCOUNTER 2018-12-04 21:33 | Emergency (ER) | payer OTHER, SELFPAY ==
[2018-12-04] MEDS ORDERED: ACETAMINOPHEN 325 MG TABLET ONE (23:23)
[2018-12-04 23:40] LABS: Urine Blood NEGATIVE (NEG); Urine Glucose NEGATIVE (NEG); Urine Protein TRACE (NEG); Urine Specific Gravity 1.025 (1.005-1.030); Urine pH 6.5 (5.0-7.0)
--- NOTE | 2018-12-05 01:21 | ER ---
Nurse's Notes [facility] Name: Jose Thomas Age: 83 yrs Sex: Male : 1935 Arrival Date: 12/04/2018 Time: 21:47 Bed 27 Private MD: Diagnosis: Dizziness and giddiness Presentation: 12/04 21:47 Presenting complaint: EMS states: patient is having left-sided headache, nausea and mg2 dizziness for an hour now. he was here also 2 days ago for the same complaint, he ran out of hypertension medication and the last time he took it was yesterday. he is staying in [facility]. BGL- 97 mg/dl. Transition of care: [facility]. Onset of symptoms was December 04, 2018 at 20:40. Risk Assessment: Do you want to hurt yourself or someone else? Patient reports no desire to harm self or others. Initial Sepsis Screen: Does the patient meet any 2 criteria? No. Patient's initial sepsis screen is negative. Does the patient have a suspected source of infection? No. Patient's initial sepsis screen is negative. Care prior to arrival: None. 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 - Social history:: Smoking status: Patient/guardian denies using tobacco, Patient/guardian denies using alcohol, street drugs, IV drugs. - Ebola Screening: : No symptoms or risks identified at this time. Screenin:52 Abuse screen: Denies threats or abuse. Denies injuries from another. Nutritional mg2 screening: No deficits noted. Tuberculosis screening: No symptoms or risk factors identified. Fall Risk Secondary diagnosis (15 points) dizziness. Assessment: 23:18 Reassessment: pt c/o headache, provider notified new orders received. tl3 23:42 Reassessment: pt returned from CT, EKG being done at bedside. tl3 12/05 00:19 General: Appears in no apparent distress. comfortable, Behavior is calm, cooperative. mg2 Pain: Complains of pain in head Pain does not radiate. Pain currently is 2 out of 10 on a pain scale. Quality of pain is described as aching, Pain began gradually, 2-3 days ago. Is intermittent. Neuro: Level of Consciousness is awake, alert, obeys commands, Oriented to person, place, time, situation. Neuro: Reports dizziness, headache in left parietal area. Neuro: Reports. Cardiovascular: Capillary refill < 3 seconds Patient's skin is warm and dry. Respiratory: Airway is patent Respiratory effort is even, unlabored, Respiratory pattern is regular, symmetrical. GI: Reports nausea. : No signs and/or symptoms were reported regarding the genitourinary system. EENT: No signs and/or symptoms were reported regarding the EENT system. Derm: Skin is intact, is healthy with good turgor, Skin is pink, warm \T\ dry. normal. Musculoskeletal: No signs and/or symptoms reported regarding the musculoskeletal system. 01:50 Reassessment: Patient appears in no apparent distress at this time. discharge mg2 instructions provided to the patient. he doesn't have a ride to [facility] [place] [employer] and so he will stay in the room til he get a ride later. charge nurse is aware. patient sleeping on bed. 03:48 Reassessment: pt appears to be sleeping, eyes closed, resp unlabored, no signs of bb discomfort noted. 04:40 Reassessment: pt appears to be sleeping, eyes closed, resp unlabored, no signs of bb discomfort noted. 06:45 Reassessment: pt assisted to lobby via wheelchair, given bus fare and notified house bb typists supervisor Jose RICE that pt is awaiting the bus and would possibly need assistance getting on the bus for return [facility] the [facility] in [place]. Vital Signs: 12/04 21:50 BP 168 / 95; Pulse 76; Resp 18; Temp 98.3; Pulse Ox 98% on R/A; Weight 102.06 kg; mg2 Height 5 ft. 10 in. (177.80 cm); Pain 10/; 23:18 BP 165 / 89; Pulse 75; Resp 16; Pulse Ox 98% on R/A; tl3 23:42 BP 164 / 90; Pulse 75; Resp 18; Pulse Ox 98% ; tl3 12/05 00:23 Pulse 69; Resp 18; Pulse Ox 100% on R/A; Pain 2/10; mg2 01:00 BP 153 / 97; Pulse 68; Resp 18; Pulse Ox 100% on R/A; Pain 0/10; mg2 12/04 21:50 Body Mass Index 32.28 (102.06 kg, 177.80 cm) mg2 ED Course: 12/04 21:47 Patient arrived in ED. mg2 21:50 Triage completed. mg2 21:52 Arm band placed on. mg2 22:15 Ld Fang MD is Attending Physician. 22:50 Quinten Zamora RN is Primary Nurse. mg2 23:[address] via stretcher. kw1 23:35 CT Head Brain wo Cont In Process Unspecified. EDMS 23:37 CT completed. Patient tolerated procedure well. Patient moved back from CT. kw1 23:53 EKG done, by ED staff, reviewed by Ld Fang MD. jp3 12/05 00:21 No provider procedures requiring assistance completed. Inserted saline lock: 20 gauge mg2 in right forearm, using aseptic technique. 00:22 Patient has correct armband on for positive identification. Pulse ox on. NIBP on. Door mg2 closed. Warm blanket given. 01:49 IV discontinued, intact, bleeding controlled, No redness/swelling at site. Pressure mg2 dressing applied. Administered Medications: 12/04 23:03 Drug: Zofran 4 mg Route: IVP; Site: right forearm; mg2 23:17 Follow up: Response: No adverse reaction tl3 23:18 Drug: Tylenol 650 mg Route: PO; tl3 23:44 Follow up: Response: No adverse reaction tl3 12/05 01:49 Drug: Motrin 400 mg Route: PO; mg2 03:01 Follow up: Response: No adverse reaction; Marked relief of symptoms mg2 Outcome: 01:21 Discharge ordered by . 01:50 Patient left the ED. mg2 01:50 Condition: stable mg2 01:50 Discharge instructions given to patient, Instructed on discharge instructions, follow up and referral plans. Demonstrated understanding of instructions, follow-up care. 01:50 Discharged to home ambulatory. mg2 Signatures: Dispatcher [employer] EDMS Marilee Saleh RN RN bb Ld Fang MD MD Maxine Newell kw1 Kamilla Regalado RN RN tl3 Quinten Zamora RN RN mg2 Sivakumar Santos jp3 Corrections: (The following items were deleted from the chart) 22:58 06:47 Patient left the ED. bb mg2
--- NOTE | 2018-12-05 01:21 | EDPHYS ---
Physician Documentation [facility] Name: Jose Thomas Age: 83 yrs Sex: Male : 1935 Arrival Date: 12/04/2018 Time: 21:47 Bed 27 Private MD: ED Physician Ld Fang HPI: 12/05 01:16 This 83 yrs old Other Male presents to ER via EMS with complaints of NEAR SYNCOPE. gs 01:16 The patient has experienced near-syncope, felt dizzy. Onset: The symptoms/episode gs began/occurred acutely. Duration: This was a single episode, that lasted 2 minute(s). Associated injury: The patient did not suffer any apparent associated injury. Associated signs and symptoms: Pertinent negatives: abdominal pain, chest pain, confusion. Current symptoms: Currently, the patient is not experiencing any symptoms. The patient has experienced similar episodes in the past, a few times. The patient has been recently seen at the [facility] Emergency Department, this week. Historical: - Allergies: 12/04 21:52 No Known Allergies; mg2 - PMHx: 21:52 Bipolar disorder; CVA; Depression; diptheria; Headaches; Hypertension; Myocardial mg2 infarction; - Immunization history:: Flu vaccine is not up to date. - Social history:: Smoking status: Patient/guardian denies using tobacco, Patient/guardian denies using alcohol, street drugs, IV drugs. - Ebola Screening: : No symptoms or risks identified at this time. ROS: 12/05 01:16 All other systems are negative. gs Exam: 01:16 Head/Face: Normocephalic, atraumatic. Eyes: Pupils equal round and reactive to light, gs extra-ocular motions intact. Lids and lashes normal. Conjunctiva and sclera are non-icteric and not injected. Cornea within normal limits. Periorbital areas with no swelling, redness, or edema. ENT: Nares patent. No nasal discharge, no septal abnormalities noted. Tympanic membranes are normal and external auditory canals are clear. Oropharynx with no redness, swelling, or masses, exudates, or evidence of obstruction, uvula midline. Mucous membranes moist. Neck: Trachea midline, no thyromegaly or masses palpated, and no cervical lymphadenopathy. Supple, full range of motion without nuchal rigidity, or vertebral point tenderness. No Meningismus. Chest/axilla: Normal chest wall appearance and motion. Nontender with no deformity. No lesions are appreciated. Cardiovascular: Regular rate and rhythm with a normal S1 and S2. No gallops, murmurs, or rubs. Normal PMI, no JVD. No pulse deficits. Respiratory: Lungs have equal breath sounds bilaterally, clear to auscultation and percussion. No rales, rhonchi or wheezes noted. No increased work of breathing, no retractions or nasal flaring. Abdomen/GI: Soft, non-tender, with normal bowel sounds. No distension or tympany. No guarding or rebound. No evidence of tenderness throughout. Back: No spinal tenderness. No costovertebral tenderness. Full range of motion. Skin: Warm, dry with normal turgor. Normal color with no rashes, no lesions, and no evidence of cellulitis. MS/ Extremity: Pulses equal, no cyanosis. Neurovascular intact. Full, normal range of motion. Neuro: Awake and alert, GCS 15, oriented to person, place, time, and situation. Cranial nerves II-XII grossly intact. Motor strength 5/5 in all extremities. Sensory grossly intact. Cerebellar exam normal. Normal gait. 01:16 ECG was reviewed by the Attending Physician. Vital Signs: 12/04 21:50 BP 168 / 95; Pulse 76; Resp 18; Temp 98.3; Pulse Ox 98% on R/A; Weight 102.06 kg; mg2 Height 5 ft. 10 in. (177.80 cm); Pain 10/10; 23:18 BP 165 / 89; Pulse 75; Resp 16; Pulse Ox 98% on R/A; tl3 23:42 BP 164 / 90; Pulse 75; Resp 18; Pulse Ox 98% ; tl3 12/05 00:23 Pulse 69; Resp 18; Pulse Ox 100% on R/A; Pain 2/10; mg2 01:00 BP 153 / 97; Pulse 68; Resp 18; Pulse Ox 100% on R/A; Pain 0/10; mg2 12/04 21:50 Body Mass Index 32.28 (102.06 kg, 177.80 cm) mg2 MDM: 12/04 22:58 Patient medically screened. 12/05 01:16 Differential Diagnosis: cardiac arrhythmia, VERTIGO. Data reviewed: vital signs, nurses gs notes. Counseling: I had a detailed discussion with the patient and/or guardian regarding: the historical points, exam findings, and any diagnostic results supporting the discharge/admit diagnosis, the need for outpatient follow up. Response to treatment: the patient's symptoms have markedly improved after treatment, and as a result, I will discharge patient. 12/04 22:43 Order name: Urine Dipstick--Ancillary (enter results); Complete Time: 01:21 mw2 12/04 23:12 Order name: CT Head Brain wo Cont gs 12/04 23:00 Order name: EKG - Nurse/Tech; Complete Time: 23:53 gs EC:16 Rate is 71 beats/min. Rhythm is regular. MD interval is normal. QRS interval is normal. gs QT interval is normal. T waves are Normal. No ST changes noted. Clinical impression: Normal ECG. Interpreted by me. Administered Medications: 12/04 23:03 Drug: Zofran 4 mg Route: IVP; Site: right forearm; mg2 23:17 Follow up: Response: No adverse reaction tl3 23:18 Drug: Tylenol 650 mg Route: PO; tl3 23:44 Follow up: Response: No adverse reaction tl3 12/05 01:49 Drug: Motrin 400 mg Route: PO; mg2 03:01 Follow up: Response: No adverse reaction; Marked relief of symptoms mg2 Disposition: 12/05/18 01:21 Discharged to Home. Impression: Dizziness and giddiness. - Condition is Stable. - Discharge Instructions: Dizziness, Near-Syncope, [id number]. - Medication Reconciliation Form, Thank You Letter, Antibiotic Education, Prescription Opioid Use form. - Follow up: Private Physician; When: 2 - 3 days; Reason: Re-evaluation by your physician. Signatures: Dispatcher [employer] EDVA Marilee Saleh RN RN bb Ld Fang MD MD Kamilla Regalado RN RN tl3 Quinten Zamora RN RN mg2 Corrections: (The following items were deleted from the chart) 06:47 01:21 12/05/2018 01:21 Discharged to Home. Impression: Dizziness and giddiness. bb Condition is Stable. Forms are Medication Reconciliation Form, Thank You Letter, Antibiotic Education, Prescription Opioid Use. Follow up: Private Physician; When: 2 - 3 days; Reason: Re-evaluation by your physician. gs
[2018-12-05] MEDS ORDERED: IBUPROFEN 400 MG TAB ONE (01:50)
[2018-12-05 07:05] VITALS: TEMP 98.3
[2018-12-05 07:09] VITALS: O2SAT 100
[2018-12-05 07:11] VITALS: BP 153/97
--- NOTE | 2018-12-05 10:49 | RAD REPORT ---
EXAM DESCRIPTION: CT - Head Brain Wo Cont - 12/05/2018 1:59 am CLINICAL HISTORY: Headache COMPARISON: November 30, 2018 TECHNIQUE: Computed axial tomography of the head was obtained. IV contrast was not requested.A preli minary report was generated by [employer] and reviewed prior to dictation All CT scans are performed using dose optimization technique as appropriate and may include automated exposure control or mA/KV adjustment according to patient size. FINDINGS: An intracranial bleed is not seen . Mild to moderate low-density areas within periventric ular, deep and subcortical white matter likely represent ischemic changes secondary to small vessel d isease. Cerebral atrophy is noted. The ventricles are normal in caliber. No extra-axial fluid collection is noted. Opacification of the right aspect of the sphenoid sinus is unchanged. Small calcifications are noted. IMPRESSION: No acute intracranial abnormality is seen. If patient's symptoms persist MRI of the bra in would be recommended. Chronic sphenoid sinusitis
--- NOTE | 2018-12-07 11:49 | EKG ---
Test Date: 2018-12-04 Test Time: 23:45:16 Extrusion Technician: KATIE MEASUREMENT RESULTS: Intervals: Rate: 71 KS: 196 QRSD: 86 QT: 420 QTc: 456 [place]: P: 53 KS: 196 QRS: -20 T: 9 INTERPRETIVE STATEMENTS: Normal sinus rhythm Normal ECG Compared to ECG 11/30/2018 20:02:05 No significant changes Electronically Signed On 12-07-18 11:43:28 [employer] by Raad Neville
== END 2018-12-05 06:47 | disposition home or self-care (01) ==
LOC: ER 21:33
DX: R42 Dizziness and giddiness (principal)
CPT/HCPCS: 70450; 81003; 93005

== ENCOUNTER 2018-12-10 18:12 | Emergency (ER) | payer SELFPAY ==
--- NOTE | 2018-12-10 19:04 | RAD REPORT ---
EXAM DESCRIPTION: RAD - Chest Pa And Lat (2 Views) - 12/10/2018 6:59 pm CLINICAL HISTORY: COUGH Chest pain. COMPARISON: Chest Single View dated 11/30/2018 FINDINGS: The lungs are emphysematous but clear. The heart is mildly enlarged in size. No displaced fractures. Degenerative changes are present thoracic spine. IMPRESSION: COPD.
[2018-12-10] MEDS ORDERED: ALBUTEROL 2.5 MG/3 ML NEB SOL ONE (19:26)
[2018-12-10] MEDS ORDERED: predniSONE 20 MG TAB ONE (19:27)
[2018-12-10] MEDS ORDERED: CEFTRIAXONE/SWI 1gm 1 GM/10 ML SYR ONE (19:27)
[2018-12-10] MEDS ORDERED: ONDANSETRON 4 MG/2 ML VIAL ONE (19:36)
--- NOTE | 2018-12-10 19:39 | ER ---
Nurse's Notes [facility] Name: Jose Thomas Age: 83 yrs Sex: Male : 1935 Arrival Date: 12/10/2018 Time: 18:17 Bed 7 Private MD: Diagnosis: Bronchitis, not specified as acute or chronic Presentation: 12/10 18:18 Presenting complaint: Patient states: productive cough with whitish sputum and SOB x 2 aa5 weeks ago. Pt also c/o chest congestion, nasal congestion, and sore throat. Transition of care: patient was not received from another setting of care. Onset of symptoms was November 2018. Risk Assessment: Do you want to hurt yourself or someone else? Patient reports no desire to harm self or others. Initial Sepsis Screen: Does the patient meet any 2 criteria? No. Patient's initial sepsis screen is negative. Does the patient have a suspected source of infection? Yes: Productive cough/pneumonia. Care prior to arrival: None. 18:18 Method Of Arrival: EMS: [facility] aa5 18:18 Acuity: HAO 3 aa5 Historical: - Allergies: 18:21 No Known Allergies; aa5 - PMHx: 18:21 Bipolar disorder; CVA; Depression; Headaches; Hypertension; Myocardial infarction; aa5 diptheria; 18:21 Arthritis; aa5 - Immunization history:: Pneumococcal vaccine is up to date, Flu vaccine is up to date. - Social history:: Smoking status: Patient/guardian denies using tobacco. - Ebola Screening: : No symptoms or risks identified at this time. Screenin:22 Abuse screen: Denies threats or abuse. Nutritional screening: No deficits noted. aa5 Tuberculosis screening: No symptoms or risk factors identified. 19:23 Fall Risk IV access (20 points). Ambulatory Aid- Crutches/Cane/Walker (15 pts). ea Assessment: 18:21 General: Appears uncomfortable, Behavior is calm, cooperative. Pain: Complains of pain aa5 in sore throat Pain currently is 8 out of 10 on a pain scale. Quality of pain is described as "sore". Neuro: Level of Consciousness is awake, alert, obeys commands, Oriented to person, place, time, situation. Cardiovascular: Heart tones S1 S2 present Rhythm is regular. Respiratory: Reports shortness of breath cough that is productive, Airway is patent Respiratory effort is even, unlabored, Respiratory pattern is regular, symmetrical, Breath sounds are diminished bilaterally. GI: Abdomen is round non-distended, Bowel sounds present X 4 quads. Abd is soft and non tender X 4 quads. Patient currently denies diarrhea, nausea, vomiting. : No signs and/or symptoms were reported regarding the genitourinary system. EENT: Throat is reddened. Derm: Skin is pink, warm \\T\\ dry. Musculoskeletal: Pt is ambulatory with a walker. 19:23 General: Appears in no apparent distress. Behavior is calm, cooperative. Pain: ea Complains of pain in "sore throat" Pain currently is 8 out of 10 on a pain scale. Neuro: Level of Consciousness is awake, alert, obeys commands, Oriented to person, place, time, situation. Cardiovascular: Heart tones S1 S2 present. Respiratory: Airway is patent Respiratory effort is even, unlabored, Respiratory pattern is regular, symmetrical, Breath sounds are diminished bilaterally. GI: Abdomen is non-distended, Bowel sounds present X 4 quads. Derm: Skin is pink, warm \\T\\ dry. 20:00 Reassessment: Patient and/or family updated on plan of care and expected duration. Pain ea level reassessed. Patient is alert, oriented x 3, equal unlabored respirations, skin warm/dry/pink. Multiple attempts made to contact the hospital for behavioral medicine. Pt reports he stays there but does not have contact information for facility. Charge nurse attempting to find transportation back to hospital for behavioral medicine. 20:15 Reassessment: Charge nurse spoke with nurse power and recovery supervisor, pt will stay in the ED until AM.ea 20:20 Reassessment: Pt verbalized he has a hard time getting around and doing things for ea himself. Reports he has no place to go and would like help getting into a long term. Charge nurse notified of situation. supervisor sewer maintenance made aware. Pt resting in room. No s/s of pain or discomfort at this time. Will notify day shift in the AM. 21:51 Reassessment: Patient and/or family updated on plan of care and expected duration. Pain ea level reassessed. Patient is alert, oriented x 3, equal unlabored respirations, skin warm/dry/pink. 22:30 Reassessment: Patient and/or family updated on plan of care and expected duration. Pain ea level reassessed. Pt resting with eyes closed, respirations even and unlabored. Chest expansions even and symmetrical. No s/s of pain or discomfort noted at this time. 23:00 Reassessment: Patient and/or family updated on plan of care and expected duration. Pain ea level reassessed. Pt resting with eyes closed, respirations even and unlabored. Chest expansion even and symmetrical. 12/11 00:00 Reassessment: Patient and/or family updated on plan of care and expected duration. Pain ea level reassessed. Pt resting with eyes closed, respirations even and unlabored. Chest expansion even and symmetrical. 01:30 Reassessment: Patient and/or family updated on plan of care and expected duration. Pain ea level reassessed. Pt resting with eyes closed, respirations even and unlabored. Chest expansions even and symmetrical. 02:00 Reassessment: Patient and/or family updated on plan of care and expected duration. Pain ea level reassessed. Pt resting with eyes closed, respirations even and unlabored. Chest expansions even and symmetrical. No s/s of pain or discomfort at this time. 03:00 Reassessment: Patient and/or family updated on plan of care and expected duration. Pain ea level reassessed. Pt resting with eyes closed, respirations even and unlabored. Chest expansions even and symmetrical. No s/s of pain or discomfort noted at this time. 04:00 Reassessment: Patient and/or family updated on plan of care and expected duration. Pain ea level reassessed. Pt resting with eyes closed, respirations even and unlabored. Chest expansion even and symmetrical. No s/s of pain or discomfort noted at this time. 05:00 Reassessment: Patient and/or family updated on plan of care and expected duration. Pain ea level reassessed. Patient is alert, oriented x 3, equal unlabored respirations, skin warm/dry/pink. 06:50 Reassessment: Patient and/or family updated on plan of care and expected duration. Pain ea level reassessed. Pt resting with eyes closed, respirations even and symmetrical. Chest expansions even and symmetrical. No s/s of pain or discomfort noted at this time. 07:15 Reassessment: Patient appears in no apparent distress at this time. Patient and/or sg family updated on plan of care and expected duration. Pain level reassessed. Patient is alert, oriented x 3, equal unlabored respirations, skin warm/dry/pink. an order has been placed for a SS consult prior to discharge to home, will continue to monitor. 07:49 Reassessment: Pt c/o back pain, states "It's sore." ERD notified, see MAR for orders. jl7 09:18 Reassessment: Spoke with Elo with case management who states that they had a ss conversation with patient 10 days ago with director social welfare and told them that he was working with a friend to get back to [place]. Elo reports that Joyce with be down shortly to speak with patient. 10:01 Reassessment: pt c/o GILMORE and and continues sore back, ERP notified, see MAR for orders. jl7 11:23 Reassessment: Attempted to arrange transportation through [employer] who reports ss that they are unable to care for patient because he is incontinent and would not arrange for transportation. Called Joyce with [employer] to discuss patient care, left voice mail. Awaiting for a returned phone call. 13:08 Reassessment: Spoke with Joyce with director social welfare who reports that there is nothing ss that can be done at this time other than for patient to go to nursing homes and apply for Medicaid pending beds. Pt updated on plan of care. Awaiting [employer] service to take patient back to [facility] as desired. Vital Signs: 12/10 18:18 BP 149 / 76; Pulse 81; Resp 18 S; Temp 99.4(O); Pulse Ox 99% on R/A; Weight 99.79 kg aa5 (R); Height 5 ft. 10 in. (177.80 cm) (R); Pain 8/10; 19:34 BP 137 / 79; Pulse 80; Resp 19; Pulse Ox 100% on Nebulizer Mask; ea 20:15 BP 127 / 83; Pulse 74; Resp 18; Pulse Ox 97% on R/A; ea 21:00 BP 133 / 80; Pulse 78; Resp 18; Pulse Ox 96% ; ea 22:30 BP 116 / 71; Pulse 71; Resp 18; Pulse Ox 100% ; ea 23:15 BP 128 / 76; Pulse 71; Resp 18; Pulse Ox 98% ; ea 12/11 00:45 BP 127 / 74; Pulse 79; Resp 18; Pulse Ox 97% on R/A; ea 03:00 BP 120 / 70; Pulse 70; Resp 17; Pulse Ox 99% ; ao 07:49 BP 120 / 64; Pulse 85; Resp 15 S; Pulse Ox 99% on R/A; jl7 12/10 18:18 Body Mass Index 31.57 (99.79 kg, 177.80 cm) aa5 ED Course: 12/10 18:17 Patient arrived in ED. aa5 18:17 Arm band placed on Patient placed in an exam room, on a stretcher. aa5 18:17 Patient has correct armband on for positive identification. Placed in gown. Bed in low aa5 position. Call light in reach. Side rails up X2. 18:18 Hao Kathleen NP is PHCP. pm1 18:18 Chino Alcaraz MD is Attending Physician. pm1 18:19 Triage completed. aa5 18:23 Siri Rodriguez, RN is Primary Nurse. aa5 18:32 No provider procedures requiring assistance completed. aa5 19:00 Chest Pa And Lat (2 Views) XRAY In Process Unspecified. EDMS 19:07 Report given to Cristela RN and KRYSTAL Cuellar. [facility] 12/11 07:07 Primary Nurse role handed off by Siri Rodriguez RN eb 07:15 Jules Reeder, KRYSTAL is Primary Nurse. sg 15:00 IV discontinued, intact, bleeding controlled, No redness/swelling at site. Pressure sg dressing applied. Administered Medications: 12/10 19:23 Drug: Albuterol 2.5 mg Route: Inhalation; ea 20:00 Follow up: Response: No adverse reaction; Marked relief of symptoms ea 19: Drug: predniSONE 60 mg Route: PO; ea 20:00 Follow up: Response: No adverse reaction ea 19: Drug: Rocephin 1 grams Route: IV; Rate: calculated rate; Site: right antecubital; ea 20:00 Follow up: Response: No adverse reaction; IV Status: Completed infusion ea : Drug: Zofran 4 mg Route: IVP; Site: right antecubital; ea 20:00 Follow up: Response: No adverse reaction 12/11 07:51 Drug: Tylenol 650 mg Route: PO; jl7 09:45 Follow up: Response: No adverse reaction; Pain is unchanged, physician notified jl7 10:03 Drug: TORadol 30 mg Route: IVP; Site: right antecubital; jl7 10:52 Follow up: Response: No adverse reaction; Pain is decreased jl7 Outcome: 12/10 19:39 Discharge ordered by . pm1 12/11 13:20 Discharged to Unknown pt reports he is staying at the [facility] Condition: good Discharge instructions given to patient, Instructed on discharge instructions, safety practices, Demonstrated understanding of instructions. 13:28 Patient left the ED. 3 Signatures: Dispatcher [employer] EDMS Jules Reeder RN RN sg Siri Rodriguez, RN RN aa5 Sintia Granger RN KRYSTAL ss Jacob Miranda RN Hao Sidhu, COMPUTER HARDWARE DESIGNER COMPUTER HARDWARE DESIGNER pm1 Dashawn Ochoa RN RN jl7 Michelle Santa pending sale to [facility] Alisa Guevara RN Giovanna Hampton ea
--- NOTE | 2018-12-10 19:39 | EDPHYS ---
Physician Documentation [facility] Name: Jose Thomas Age: 83 yrs Sex: Male : 1935 Arrival Date: 12/10/2018 Time: 18:17 Bed 7 Private MD: ED Physician Chino Alcaraz HPI: 12/10 19:08 This 83 yrs old Other Male presents to ER via EMS with complaints of Cough. pm1 19:08 The patient or guardian reports cough, with productive sputum, that is white. Onset: pm1 The symptoms/episode began/occurred 2 week(s) ago. Severity of symptoms: in the emergency department the symptoms are unchanged. Modifying factors: The symptoms are alleviated by nothing, the symptoms are aggravated by nothing. Associated signs and symptoms: Pertinent positives: sore throat, chest and nasal congestion, Pertinent negatives: fever, nausea, rhinorrhea, vomiting. 19:08 The patient has been recently seen at the [facility] Emergency pm1 Department, last week, for unrelated complaints, Near syncope. Historical: - Allergies: 18:21 No Known Allergies; aa5 - PMHx: 18:21 Bipolar disorder; CVA; Depression; Headaches; Hypertension; Myocardial infarction; aa5 diptheria; 18:21 Arthritis; aa5 - Immunization history:: Pneumococcal vaccine is up to date, Flu vaccine is up to date. - Social history:: Smoking status: Patient/guardian denies using tobacco. - Ebola Screening: : No symptoms or risks identified at this time. ROS: 19:08 Constitutional: Negative for fever, chills, and weight loss, Eyes: Negative for injury, pm1 pain, redness, and discharge, ENT: Negative for injury, pain, and discharge, Neck: Negative for injury, pain, and swelling, Cardiovascular: Negative for chest pain, palpitations, and edema. 19:08 Abdomen/GI: Negative for abdominal pain, nausea, vomiting, diarrhea, and constipation, Back: Negative for injury and pain, : Negative for injury, bleeding, discharge, and swelling, MS/Extremity: Negative for injury and deformity, Skin: Negative for injury, rash, and discoloration, Neuro: Negative for headache, weakness, numbness, tingling, and seizure. 19:08 Respiratory: Positive for cough, Negative for shortness of breath, wheezing. Exam: 19:08 Constitutional: This is a well developed, well nourished patient who is awake, alert, pm1 and in no acute distress. Head/Face: Normocephalic, atraumatic. Eyes: Pupils equal round and reactive to light, extra-ocular motions intact. Lids and lashes normal. Conjunctiva and sclera are non-icteric and not injected. Cornea within normal limits. Periorbital areas with no swelling, redness, or edema. ENT: Nares patent. No nasal discharge, no septal abnormalities noted. Tympanic membranes are normal and external auditory canals are clear. Oropharynx with no redness, swelling, or masses, exudates, or evidence of obstruction, uvula midline. Mucous membranes moist. Neck: Trachea midline, no thyromegaly or masses palpated, and no cervical lymphadenopathy. Supple, full range of motion without nuchal rigidity, or vertebral point tenderness. No Meningismus. Chest/axilla: Normal chest wall appearance and motion. Nontender with no deformity. No lesions are appreciated. Cardiovascular: Regular rate and rhythm with a normal S1 and S2. No gallops, murmurs, or rubs. No pulse deficits. Respiratory: Lungs have equal breath sounds bilaterally, clear to auscultation and percussion. No rales, rhonchi or wheezes noted. No increased work of breathing, no retractions or nasal flaring. Abdomen/GI: Soft, non-tender, with normal bowel sounds. No distension or tympany. No guarding or rebound. No evidence of tenderness throughout. Back: No spinal tenderness. No costovertebral tenderness. Full range of motion. Skin: Warm, dry with normal turgor. Normal color with no rashes, no lesions, and no evidence of cellulitis. MS/ Extremity: Pulses equal, no cyanosis. Neurovascular intact. Full, normal range of motion. Neuro: Awake and alert, GCS 15, oriented to person, place, time, and situation. Cranial nerves II-XII grossly intact. Motor strength 5/5 in all extremities. Sensory grossly intact. Cerebellar exam normal. Normal gait. Vital Signs: 18:18 BP 149 / 76; Pulse 81; Resp 18 S; Temp 99.4(O); Pulse Ox 99% on R/A; Weight 99.79 kg aa5 (R); Height 5 ft. 10 in. (177.80 cm) (R); Pain 8/10; 19:34 BP 137 / 79; Pulse 80; Resp 19; Pulse Ox 100% on Nebulizer Mask; ea 20:15 BP 127 / 83; Pulse 74; Resp 18; Pulse Ox 97% on R/A; ea 21:00 BP 133 / 80; Pulse 78; Resp 18; Pulse Ox 96% ; ea 22:30 BP 116 / 71; Pulse 71; Resp 18; Pulse Ox 100% ; ea 23:15 BP 128 / 76; Pulse 71; Resp 18; Pulse Ox 98% ; ea 12/11 00:45 BP 127 / 74; Pulse 79; Resp 18; Pulse Ox 97% on R/A; ea 03:00 BP 120 / 70; Pulse 70; Resp 17; Pulse Ox 99% ; ao 07:49 BP 120 / 64; Pulse 85; Resp 15 S; Pulse Ox 99% on R/A; jl7 12/10 18:18 Body Mass Index 31.57 (99.79 kg, 177.80 cm) aa5 MDM: 12/10 18:19 Patient medically screened. pm1 19:38 Data reviewed: vital signs. Data interpreted: Pulse oximetry: on room air is 100 %. pm1 Interpretation: normal. Counseling: I had a detailed discussion with the patient and/or guardian regarding: the historical points, exam findings, and any diagnostic results supporting the discharge/admit diagnosis, lab results, radiology results, the need for outpatient follow up, to return to the emergency department if symptoms worsen or persist or if there are any questions or concerns that arise at home. 22:00 ED course: Urine dipstick results entered belongs to another patient. Mr. Thomas pm1 did not provide a urine sample during this ER visit. 12/10 18:24 Order name: Flu; Complete Time: 19:08 pm1 12/10 18:24 Order name: Strep; Complete Time: 19:08 pm1 12/10 18:24 Order name: Chest Pa And Lat (2 Views) XRAY; Complete Time: 19:08 pm12/10 19:01 Order name: Throat Culture EDMS 12/11 07:29 Order name: Diet Regular; Complete Time: 07:29 sg 12/11 10:52 Order name: Diet Regular; Complete Time: 10:53 jl7 Administered Medications: 19:23 Drug: Albuterol 2.5 mg Route: Inhalation; ea 20: Follow up: Response: No adverse reaction; Marked relief of symptoms ea : Drug: predniSONE 60 mg Route: PO; ea 20: Follow up: Response: No adverse reaction Drug: Rocephin 1 grams Route: IV; Rate: calculated rate; Site: right antecubital; ea 20:00 Follow up: Response: No adverse reaction; IV Status: Completed infusion ea : Drug: Zofran 4 mg Route: IVP; Site: right antecubital; ea 20: Follow up: Response: No adverse reaction 12/11 07:51 Drug: Tylenol 650 mg Route: PO; jl7 09:45 Follow up: Response: No adverse reaction; Pain is unchanged, physician notified jl7 10:03 Drug: TORadol 30 mg Route: IVP; Site: right antecubital; jl7 10:52 Follow up: Response: No adverse reaction; Pain is decreased jl7 Disposition: 12/10/18 19:39 Discharged to Home. Impression: Bronchitis, not specified as acute or chronic. - Condition is Stable. - Discharge Instructions: Acute Bronchitis, Adult, How to Use an Inhaler, Cough, Adult. - Prescriptions for Zithromax Z- Marin 250 mg Oral Tablet - take 1 tablet by ORAL route as directed for 5 days Day 1 - take two (2) tablets one time. Day 2, 3, 4 , 5 take one (1) tablet once daily.; 6 tablet. Medrol (Marin) 4 mg Oral Tablets, Dose Pack - take 1 tablet by ORAL route as directed - follow package instructions; 1 packet. Albuterol Sulfate 90 mcg/actuation - inhale 1-2 puff by INHALATION route every 4-6 hours; 1 Inhaler. - Medication Reconciliation Form, Thank You Letter, Antibiotic Education, Prescription Opioid Use form. - Follow up: Emergency Department; When: As needed; Reason: Worsening of condition. Follow up: Private Physician; When: 2 - 3 days; Reason: Recheck today's complaints, Continuance of care, Re-evaluation by your physician. - Problem is new. - Symptoms have improved. Addendum: 12/17/2018 08:56 Co-signature as Attending Physician, Chino Alcaraz MD I agree with the assessment and k dr plan of care. Signatures: Dispatcher [employer] EDMS Chino Alcaraz MD MD [facility] Siri Rodriguez RN RN aa5 Sintia Granger RN RN ss Hao Kathleen, ENRIQUE DIRECTOR SOFTWARE pm1 Dashawn Ochoa RN RN jl7 Michelle Santa 3 Alisa Guevara RN RN ea Corrections: (The following items were deleted from the chart) 12/10 22:26 19:57 URINE DIPSTICK--ANCILLARY+U.LAB.BRZ ordered. EDPR EDMS 22:00 URINE DIPSTICK--ANCILLARY+U.LAB.BRZ reviewed. pm1 EDMS 12/11 13:28 12/10 19:39 12/10/2018 19:39 Discharged to Home. Impression: Bronchitis, not specified dh3 as acute or chronic. Condition is Stable. Forms are Medication Reconciliation Form, Thank You Letter, Antibiotic Education, Prescription Opioid Use. Follow up: Emergency Department; When: As needed; Reason: Worsening of condition. Follow up: Private Physician; When: 2 - 3 days; Reason: Recheck today's complaints, Continuance of care, Re-evaluation by your physician. Problem is new. Symptoms have improved. pm1
[2018-12-11] MEDS ORDERED: ACETAMINOPHEN 325 MG TABLET ONE (07:56)
[2018-12-11] MEDS ORDERED: KETOROLAC 30 MG/ML INJ ONE (10:06)
[2018-12-11 13:42] VITALS: TEMP 99.4
[2018-12-11 13:52] VITALS: O2SAT 99
[2018-12-11 13:53] VITALS: BP 120/64
== END 2018-12-11 13:28 | disposition home or self-care (01) ==
LOC: ER 18:12
DX: J40 Bronchitis, not specified as acute or chronic (principal); I10 Essential (primary) hypertension
CPT/HCPCS: 71046; 87070; 87081; 87804; 96365; 96375; 99284; J0696; J2405; J7512

== ENCOUNTER 2018-12-14 02:33 | Emergency (ER) | payer SELFPAY ==
[2018-12-14] MEDS ORDERED: NA CHLORIDE 0.9% 500 ML ONE (04:06)
[2018-12-14] MEDS ORDERED: METHYLPREDNISOLONE 125 MG INJ ONE (04:11)
[2018-12-14] MEDS ORDERED: LEVALBUTEROL 1.25 MG/3 ML NEB ONE (04:11)
[2018-12-14] MEDS ORDERED: IPRATROPIUM BROM 0.5MG/2.5ML ONE (04:11)
[2018-12-14] MEDS ORDERED: AZITHROMYCIN 500 MG/250 ML BAG ONE (04:12)
[2018-12-14] MEDS ORDERED: HYDROCODONE/CHLORPHEN 5 ML/OSYR ONE (04:12)
[2018-12-14 04:36] LABS: Absolute Lymphocytes (CBC) 1.6 K/uL (0.7-4.9); Absolute Monocytes 0.5 K/uL (0.1-1.3); Absolute Neutrophil 2.9 K/uL (1.8-8.0); Basophils % 0.5 % (0-1.3); Hematocrit 39.3 % (39.6-49.0); Lymphocytes % 29.1 % (15.3-44.8); MPV 8.4 fL (7.6-11.3); Monocytes % 8.1 % (3.3-12.3); Protime INR 0.99; RBC Red Blood Cell Count 4.61 M/uL (4.33-5.43)
--- NOTE | 2018-12-14 04:50 | EDPHYS ---
Physician Documentation [facility] Name: Jose Thomas Age: 83 yrs Sex: Male : 1935 Arrival Date: 12/14/2018 Time: 02:36 Bed 11 Private MD: ED Physician Rakesh Maloney HPI: 12/14 03:50 This 83 yrs old Other Male presents to ER via EMS with complaints of sob. hortencia 03:50 The patient has shortness of breath at rest. Onset: The symptoms/episode began/occurred hortencia just prior to arrival. Duration: The symptoms are continuous, and are unchanged since they started. The patient's shortness of breath has no apparent modifying factors. The patient or guardian reports cough, that is intermittent. Onset: The symptoms/episode began/occurred last night. Modifying factors: The symptoms are alleviated by nothing. the symptoms are aggravated by nothing. Associated signs and symptoms: The patient has no apparent associated signs or symptoms. Severity of symptoms: At their worst the symptoms were mild in the emergency department the symptoms are unchanged. Associated signs and symptoms: The patient has no apparent associated signs or symptoms. Historical: - Allergies: 02:45 No Known Allergies; lp1 - Home Meds: 02:45 None [Active]; lp1 - PMHx: 02:45 Arthritis; Bipolar disorder; CVA; Depression; diptheria; Headaches; Hypertension; lp1 Myocardial infarction; - PSHx: 02:45 None; lp1 - Immunization history:: Adult Immunizations unknown. - Social history:: Smoking status: Patient/guardian denies using tobacco. - Ebola Screening: : No symptoms or risks identified at this time. - Family history:: not pertinent. ROS: 03:50 Constitutional: Negative for fever, chills, and weight loss, Eyes: Negative for injury, hortencia pain, redness, and discharge, ENT: Negative for injury, pain, and discharge, Neck: Negative for injury, pain, and swelling, Cardiovascular: Negative for chest pain, palpitations, and edema, Abdomen/GI: Negative for abdominal pain, nausea, vomiting, diarrhea, and constipation, Back: Negative for injury and pain, : Negative for injury, bleeding, discharge, and swelling, MS/Extremity: Negative for injury and deformity, Skin: Negative for injury, rash, and discoloration, Neuro: Negative for headache, weakness, numbness, tingling, and seizure, Psych: Negative for depression, anxiety, suicide ideation, homicidal ideation, and hallucinations, Allergy/Immunology: Negative for hives, rash, and allergies, Endocrine: Negative for neck swelling, polydipsia, polyuria, polyphagia, and marked weight changes, Hematologic/Lymphatic: Negative for swollen nodes, abnormal bleeding, and unusual bruising. 03:50 Respiratory: Positive for cough, with no reported sputum. Exam: 03:50 Constitutional: This is a well developed, well nourished patient who is awake, alert, hortencia and in no acute distress. Head/Face: Normocephalic, atraumatic. Eyes: Pupils equal round and reactive to light, extra-ocular motions intact. Lids and lashes normal. Conjunctiva and sclera are non-icteric and not injected. Cornea within normal limits. Periorbital areas with no swelling, redness, or edema. ENT: Nares patent. No nasal discharge, no septal abnormalities noted. Tympanic membranes are normal and external auditory canals are clear. Oropharynx with no redness, swelling, or masses, exudates, or evidence of obstruction, uvula midline. Mucous membranes moist. Neck: Trachea midline, no thyromegaly or masses palpated, and no cervical lymphadenopathy. Supple, full range of motion without nuchal rigidity, or vertebral point tenderness. No Meningismus. Chest/axilla: Normal chest wall appearance and motion. Nontender with no deformity. No lesions are appreciated. Cardiovascular: Regular rate and rhythm with a normal S1 and S2. No gallops, murmurs, or rubs. Normal PMI, no JVD. No pulse deficits. Abdomen/GI: Soft, non-tender, with normal bowel sounds. No distension or tympany. No guarding or rebound. No evidence of tenderness throughout. Back: No spinal tenderness. No costovertebral tenderness. Full range of motion. Male : Normal genitalia with no discharge or lesions. Skin: Warm, dry with normal turgor. Normal color with no rashes, no lesions, and no evidence of cellulitis. MS/ Extremity: Pulses equal, no cyanosis. Neurovascular intact. Full, normal range of motion. Neuro: Awake and alert, GCS 15, oriented to person, place, time, and situation. Cranial nerves II-XII grossly intact. Motor strength 5/5 in all extremities. Sensory grossly intact. Cerebellar exam normal. Normal gait. Psych: Awake, alert, with orientation to person, place and time. Behavior, mood, and affect are within normal limits. 03:50 Respiratory: the patient does not display signs of respiratory distress, Respirations: normal, Breath sounds: rhonchi, that are mild, are scattered. 03:58 Musculoskeletal/extremity: DVT Exam: No signs of deep vein thrombosis. no pain, no hortencia swelling, no tenderness, negative Homans' sign noted on exam, no appreciated bluish discoloration, no erythema, no increased warmth. Vital Signs: 02:42 BP 144 / 91; Pulse 76; Resp 18; Temp 98.4(O); Pulse Ox 98% on R/A; Weight 102.06 kg; lp1 Height 5 ft. 10 in. (177.80 cm); Pain 0/10; 04:13 BP 144 / 87; Pulse 69; Resp 18; Pulse Ox 98% on Nebulizer Mask; Pain 0/10; ed1 05:00 BP 131 / 75; Pulse 73; Resp 20; Pulse Ox 97% on R/A; Pain 0/10; ed1 06:41 BP 108 / 64; Pulse 74; Resp 16; Pulse Ox 96% on R/A; Pain 0/10; ed1 02:42 Body Mass Index 32.28 (102.06 kg, 177.80 cm) lp1 MDM: 03:15 Patient medically screened. [facility] 03:50 Data reviewed: vital signs, nurses notes, lab test result(s), EKG, radiologic studies, hortencia plain films. 12/14 03:49 Order name: Basic Metabolic Panel; Complete Time: 05:41 hortencia 12/14 03:49 Order name: CBC with Diff; Complete Time: 04:47 [facility] 12/14 03:49 Order name: LFT's; Complete Time: 05:41 [facility] 12/14 03:49 Order name: Magnesium; Complete Time: 05:41 [facility] 12/14 03:49 Order name: NT PRO-BNP; Complete Time: 05:41 [facility] 12/14 03:49 Order name: PT-INR; Complete Time: 04:47 [facility] 12/14 02:43 Order name: Chest Single View XRAY snw 12/14 03:49 Order name: Troponin (emerg Dept Use Only); Complete Time: 05:41 [facility] 12/14 03:49 Order name: D-Dimer; Complete Time: 04:47 [facility] 12/14 04:47 Order name: US Extremity Venous W Compression Rayshawn [facility] 12/14 05:33 Order name: CT Chest For PE Angio [facility] 12/14 03:49 Order name: EKG; Complete Time: 03:58 [facility] 12/14 03:49 Order name: Cardiac monitoring; Complete Time: 04:15 [facility] 12/14 03:49 Order name: EKG - Nurse/Tech; Complete Time: 04:15 [facility] 12/14 03:49 Order name: IV Saline Lock; Complete Time: 04:15 [facility] 12/14 03:49 Order name: Labs collected and sent; Complete Time: 04:16 [facility] 12/14 03:49 Order name: O2 Per Protocol; Complete Time: 04:16 [facility] 12/14 03:49 Order name: O2 Sat Monitoring; Complete Time: 04:16 [facility] Administered Medications: 03:53 CANCELLED (Duplicate Order): Zithromax 500 mg PO once hortencia 04:09 Drug: NS 0.9% 500 ml Route: IV; Rate: bolus; Site: right forearm; ed1 04:55 Follow up: IV Status: Completed infusion; IV Intake: 500ml ed1 04:09 Drug: Zithromax 500 mg Route: IVPB; Infused Over: 1 hrs; Site: right forearm; ed1 07:00 Follow up: IV Status: Completed infusion iw 04:09 Drug: SOLU-Medrol 125 mg Route: IVP; Site: right forearm; ed1 04:55 Follow up: Response: No adverse reaction ed1 04:10 Drug: Xopenex 1.25 mg Route: Inhalation; ed1 04:55 Follow up: Response: No adverse reaction; Marked relief of symptoms ed1 04:10 Drug: AtroVENT Aerosol 0.5 mg Route: Inhalation; ed1 04:55 Follow up: Response: No adverse reaction; Marked relief of symptoms ed1 04:10 Drug: Tussionex Pennkinetic ER 5 ml Route: PO; ed1 04:56 Follow up: Response: No adverse reaction; Marked relief of symptoms ed1 05:32 Not Given (Duplicate Order): Lovenox 1 mg/kg Sub-Q once hortencia 06:42 Drug: Pepcid 20 mg Route: IVP; Site: right forearm; ed1 07:17 Follow up: Response: No adverse reaction ca1 Disposition: 12/14/18 07:14 Discharged to Home. Impression: Cough, Bronchitis, not specified as acute or chronic, Unspecified kidney failure, Anemia, unspecified, Osteoarthritis, unspecified site. - Condition is Stable. - Discharge Instructions: Acute Bronchitis, Adult, Anemia, Nonspecific, Fever, Adult, Upper Respiratory Infection, Adult, Cool Mist Vaporizer, Cough, Adult, [id number], Cough, Adult. - Prescriptions for Zithromax Z- Marin 250 mg Oral Tablet - take 1 tablet by ORAL route as directed for 5 days Day 1 - take two (2) tablets one time. Day 2, 3, 4 , 5 take one (1) tablet once daily.; 6 tablet. Medrol (Marin) 4 mg Oral Tablets, Dose Pack - take 1 tablet by ORAL route as directed - follow package instructions; 1 packet. Albuterol Sulfate 90 mcg/actuation - inhale 1-2 puff by INHALATION route every 4-6 hours; 1 Inhaler. Guaifenesin AC 10- 100 mg/5 mL Oral Liquid - take 10 milliliters by ORAL route every 4 hours As needed; 150 milliliter. - Medication Reconciliation Form, Thank You Letter, Antibiotic Education, Prescription Opioid Use form. - Follow up: Private Physician; When: 2 - 3 days; Reason: Recheck today's complaints, Continuance of care, Re-evaluation by your physician. Follow up: Malik Jeffers; When: 2 - 3 days; Reason: Recheck today's complaints, Re-evaluation by your physician. - Problem is new. - Symptoms have improved. Signatures: Dispatcher [employer] EDMS Rakesh Maloney MD MD cha Williams, Irene, RN KRYSTAL iw Barbie Nolasco RN RN ed1 Sharifa Sears RN RN lp1 Rachele Melo RN ca1 Corrections: (The following items were deleted from the chart) 03:53 03:49 Zithromax 500 mg PO once ordered. hortencia burnett 05:41 04:49 Hospitalization Ordered by Basia Guerrero MD for Observation. Preliminary [facility] diagnosis is Dyspnea; Anemia, unspecified; Unspecified kidney failure. Bed requested for Telemetry/MedSurg (observation). Status is Observation. Condition is Stable. Problem is new. Symptoms have improved. UTI on Admission? No. hortencia 10:14 04:47 Vent Perfusion VQ Scan+[id number].[id number] ordered. EDMA EDMS 15:05 07:14 12/14/2018 07:14 Discharged to Home. Impression: Cough; Bronchitis, not specified iw as acute or chronic; Unspecified kidney failure; Anemia, unspecified; Osteoarthritis, unspecified site. Condition is Stable. Discharge Instructions: Acute Bronchitis, Adult, Anemia, Nonspecific, Fever, Adult, Upper Respiratory Infection, Adult, Cool Mist Vaporizer, Cough, Adult, [id number]-on-Hnfu, Cough, Adult. Prescriptions for Zithromax Z-Marin 250 mg Oral Tablet - take 1 tablet by ORAL route as directed for 5 days Day 1 - take two (2) tablets one time. Day 2, 3, 4 , 5 take one (1) tablet once daily.; 6 tablet, Medrol (Marin) 4 mg Oral Tablets, Dose Pack - take 1 tablet by ORAL route as directed - follow package instructions; 1 packet, Albuterol Sulfate 90 mcg/actuation - inhale 1-2 puff by INHALATION route every 4-6 hours; 1 Inhaler, Guaifenesin AC 10-100 mg/5 mL Oral Liquid - take 10 milliliters by ORAL route every 4 hours As needed; 160 milliliter, Zithromax Z-Marin 250 mg Oral Tablet - take 1 tablet by ORAL route as directed for 5 days Day 1 - take two (2) tablets one time. Day 2, 3, 4 , 5 take one (1) tablet once daily.; 6 tablet, Medrol (Marin) 4 mg Oral Tablets, Dose Pack - take 1 tablet by ORAL route as directed - follow package instructions; 1 packet, Albuterol Sulfate 90 mcg/actuation - inhale 1-2 puff by INHALATION route every 4-6 hours; 1 Inhaler, Guaifenesin AC 10-100 mg/5 mL Oral Liquid - take 10 milliliters by ORAL route every 4 hours As needed; 150 milliliter. and Forms are Medication Reconciliation Form, Thank You Letter, Antibiotic Education, Prescription Opioid Use. Follow up: Private Physician; When: 2 - 3 days; Reason: Recheck today's complaints, Continuance of care, Re-evaluation by your physician. Follow up: Malik Jeffers; When: 2 - 3 days; Reason: Recheck today's complaints, Re-evaluation by your physician. Problem is new. Symptoms have improved. hortencia
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
[2018-12-14 04:57] LABS: ALT/SGPT 34 U/L (12-78); AST/SGOT 21 U/L (15-37); Albumin 3.4 g/dL (3.4-5.0); Alkaline Phosphatase 80 U/L (45-117); BUN Blood Urea Nitrogen 22 mg/dL (7-18); Bicarbonate 26 mmol/L (21-32); Bilirubin Direct < 0.1 mg/dL (0-0.2); Bilirubin Total 0.3 mg/dL (0.2-1.0); Glucose Level 98 mg/dL (74-106); Magnesium 2.1 mg/dL (1.8-2.4); NT PRO-BNP 75 pg/mL (<450); Potassium 4.2 mmol/L (3.5-5.1); Protein, Total 7.2 g/dL (6.4-8.2); Sodium Level 141 mmol/L (136-145); Troponin (Emerg Dept Use Only) < 0.02 ng/mL (0.0-0.045)
[2018-12-14] MEDS ORDERED: FAMOTIDINE 20 MG/2 ML VIAL IV ONE (06:48)
--- NOTE | 2018-12-14 07:58 | EKG ---
Test Date: 2018-12-14 Test Time: 04:01:25 Grain Scooper: GEOFFREY MEASUREMENT RESULTS: Intervals: Rate: 77 MO: 182 QRSD: 90 QT: 406 QTc: 459 [place]: P: 54 MO: 182 QRS: -13 T: 19 INTERPRETIVE STATEMENTS: Normal sinus rhythm Minimal voltage criteria for LVH, may be normal variant Borderline ECG Compared to ECG 12/04/2018 23:45:16 Left ventricular hypertrophy now present Electronically Signed On 12-14-18 07:52:48 SHAKE OUT WORKER by Raad Neville
--- NOTE | 2018-12-14 08:16 | RAD REPORT ---
EXAM DESCRIPTION: US - Extrem Venous W Compress Rayshawn - 12/14/2018 7:07 am CLINICAL HISTORY: PAIN Bilateral leg edema and swelling. COMPARISON: No comparisons TECHNIQUE: Real-time sonographic interrogation of the left and right lower extremity deep venous sys tems was performed. FINDINGS: Normal compressibility, flow augmentation, phasic flow and spontaneous flow is identified in both the left and right lower extremity deep venous systems. Small Laird cyst is present on the ri ght. IMPRESSION: No sonographic evidence of left or right lower extremity deep venous thrombosis.
--- NOTE | 2018-12-14 08:32 | RAD REPORT ---
EXAM DESCRIPTION: CT - Chest For Pe Angio - 12/14/2018 7:05 am CLINICAL HISTORY: Chest pain. SOB COMPARISON: Chest Pa And Lat (2 Views) dated 12/10/2018; Chest Single View dated 11/30/2018 TECHNIQUE: CT angiogram of the pulmonary arteries was performed with MIP. All CT scans are performed using dose optimization technique as appropriate and may include automated exposure control or mA/KV adjustment according to patient size. FINDINGS: No evidence of pulmonary thromboembolism. No acute aortic finding demonstrated. The lungs are clear. No significant pericardial or pleural fluid. 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 No concerning bony finding. Moderate hiatal hernia. IMPRESSION: No evidence of pulmonary thromboembolism.
--- NOTE | 2018-12-14 08:40 | RAD REPORT ---
EXAM DESCRIPTION: RAD - Chest Single View - 12/14/2018 2:55 am CLINICAL HISTORY: COUGH Chest pain. COMPARISON: Chest Pa And Lat (2 Views) dated 12/10/2018; Chest Single View dated 11/30/2018 FINDINGS: Portable technique limits examination quality. Emphysematous changes are present without focal infiltrate. The heart is normal in size. No displaced fractures.Degenerative changes are present both shoulders. IMPRESSION: COPD.
[2018-12-14 16:01] VITALS: TEMP 98.4
[2018-12-14 16:06] VITALS: BP 108/64; O2SAT 96
== END 2018-12-14 15:05 | disposition home or self-care (01) ==
LOC: ER 02:33
DX: J40 Bronchitis, not specified as acute or chronic (principal); N19 Unspecified kidney failure; D64.9 Anemia, unspecified; M19.90 Unspecified osteoarthritis, unspecified site; I10 Essential (primary) hypertension
CPT/HCPCS: 36415; 71045; 71275; 80048; 80076; 83735; 83880; 84484; 85025; 85379; 85610; 93005; 93970; 96365; 96366; 96375; 99285; J0456; J2930; Q9967

== ENCOUNTER 2018-12-15 22:05 | Emergency (ER) | payer OTHER ==
[2018-12-15 22:35] LABS: Absolute Lymphocytes (CBC) 1.3 K/uL (0.7-4.9); Absolute Monocytes 0.5 K/uL (0.1-1.3); Absolute Neutrophil 4.7 K/uL (1.8-8.0); Eosinophils % 2.3 % (0-4.4); Hematocrit 38.7 % (39.6-49.0); MPV 7.9 fL (7.6-11.3); Monocytes % 7.1 % (3.3-12.3); RBC Red Blood Cell Count 4.49 M/uL (4.33-5.43)
[2018-12-15 22:36] LABS: Protime INR 1.02
[2018-12-15 22:48] LABS: ALT/SGPT 33 U/L (12-78); AST/SGOT 24 U/L (15-37); Albumin 3.5 g/dL (3.4-5.0); Alkaline Phosphatase 83 U/L (45-117); BUN Blood Urea Nitrogen 22 mg/dL (7-18); Bicarbonate 28 mmol/L (21-32); Bilirubin Direct < 0.1 mg/dL (0-0.2); Bilirubin Total 0.3 mg/dL (0.2-1.0); Glucose Level 111 mg/dL (74-106); Lipase 401 U/L (73-393); Protein, Total 7.4 g/dL (6.4-8.2); Sodium Level 139 mmol/L (136-145)
[2018-12-15] MEDS ORDERED: NA CHLORIDE 0.9% 500 ML ONE (23:15)
[2018-12-16 00:04] LABS: Barbiturates NEGATIVE (NEGATIVE); Benzodiazepines NEGATIVE (NEGATIVE); Cocaine NEGATIVE (NEGATIVE); METHAMPHETAM NEGATIVE (NEGATIVE); Methadone NEGATIVE (NEGATIVE); Opiates NEGATIVE (NEGATIVE); Phencyclidine NEGATIVE (NEGATIVE); THC Cannibis NEGATIVE (NEGATIVE)
[2018-12-16 00:43] LABS: Urine Blood NEGATIVE (NEG); Urine Glucose NEGATIVE (NEG); Urine Protein TRACE (NEG); Urine Specific Gravity >1.030 (1.005-1.030); Urine pH 5.5 (5.0-7.0)
--- NOTE | 2018-12-16 01:28 | EDPHYS ---
Physician Documentation [facility] Name: Jose Thomas Age: 83 yrs Sex: Male : 1935 Arrival Date: 12/15/2018 Time: 22:06 Bed 3 Private MD: ED Physician Federico Quintanilla HPI: 12/15 22:27 This 83 yrs old Other Male presents to ER via EMS with complaints of abd pain, Suicidal rn ideation. 22:27 The patient presents with abdominal pain in the lower abdomen. Onset: The rn symptoms/episode began/occurred today. The symptoms do not radiate. Modifying factors: The symptoms are alleviated by nothing, the symptoms are aggravated by nothing. Severity of pain: At its worst the pain was mild in the emergency department the pain has improved. The patient has not experienced similar symptoms in the past. REports mild lower abd pain, began earlier today, reports no constipation, no fever/diarrhea/vomiting/chest pain. Reports had bowel movement, when wiped noted some bright red blood, small amount, and does not think it was mixed with stool. No current abd pain. NO hx of abd surgeries or bleeding. + hx of hemorrhoids and hemorrhoidectomy. . Historical: - Allergies: 22:10 No Known Allergies; tl2 - Home Meds: 22:10 unknown BP med [Active]; tl2 - PMHx: 22:10 Arthritis; Bipolar disorder; CVA; Depression; diptheria; Headaches; Hypertension; tl2 Myocardial infarction; - Immunization history:: Adult Immunizations up to date. - Social history:: Smoking status: Patient/guardian denies using tobacco. - Ebola Screening: : No symptoms or risks identified at this time. - Family history:: not pertinent. - Hospitalizations: : No recent hospitalization is reported. ROS: 22:27 Constitutional: Negative for fever, chills, and weight loss, Eyes: Negative for injury, rn pain, redness, and discharge, Neck: Negative for injury, pain, and swelling, Cardiovascular: Negative for chest pain, palpitations, and edema, Respiratory: Negative for shortness of breath, cough, wheezing, and pleuritic chest pain, Abdomen/GI: + abd pain MS/Extremity: Negative for injury and deformity, Skin: Negative for injury, rash, and discoloration, Neuro: Negative for headache, weakness, numbness, tingling, and seizure, Psych: + depression and suicidal thoughts Exam: 22:27 Constitutional: This is a well developed, well nourished patient who is awake, alert, rn and in no acute distress. Head/Face: Normocephalic, atraumatic. Eyes: Pupils equal round and reactive to light, extra-ocular motions intact. Lids and lashes normal. Conjunctiva and sclera are non-icteric and not injected. Cornea within normal limits. Periorbital areas with no swelling, redness, or edema. ENT: MMM Cardiovascular: Regular rate and rhythm, No pulse deficits. Respiratory: Lungs have equal breath sounds bilaterally, clear to auscultation Abdomen/GI: soft, non-tender, + external hemorrhoids noted, no fissure Back: No spinal tenderness. No costovertebral tenderness. Full range of motion. MS/ Extremity: Pulses equal, no cyanosis. Neurovascular intact. Full, normal range of motion. Equal circumference. Neuro: Awake and alert, GCS 15, oriented to person, place, time, and situation. Cranial nerves II-XII grossly intact. Motor strength 5/5 in all extremities. Sensory grossly intact. Cerebellar exam normal. Psych: Awake, alert, with orientation to person, place and time. Vital Signs: 22:10 BP 144 / 73; Pulse 76; Resp 18; Temp 98.4(O); Pulse Ox 100% on R/A; Weight 104.33 kg; tl2 Height 5 ft. 7 in. (170.18 cm); Pain 3/10; 23:19 BP 144 / 80; Pulse 72; Resp 18; Pulse Ox 99% on R/A; tl2 12/16 00:27 BP 150 / 76; Pulse 70; Resp 18; Pulse Ox 97% on R/A; mw2 03:10 BP 173 / 90 (/pedi); Pulse 70; Resp 18; Pulse Ox 99% on R/A; tl2 12/15 22:10 Body Mass Index 36.02 (104.33 kg, 170.18 cm) tl2 MDM: 12/15 22:06 Patient medically screened. rn 22:27 ED course: Patient reports also having suicidal ideations, worse today, reports "too rn old to put up with things", would use a gun "without hesitation", and might walk under an eighteen drew tomorrow if "its a nice day for a walk". Also asked EMS if they had cyanide or could end his life. Currently at [facility]. . 12/16 01:09 Differential diagnosis: diverticulitis, gastritis, non-specific abd pain, urinary tract rn infection. Data reviewed: vital signs, nurses notes, lab test result(s), radiologic studies, CT scan, and as a result, I will admit patient. Counseling: I had a detailed discussion with the patient and/or guardian regarding: the historical points, exam findings, and any diagnostic results supporting the discharge/admit diagnosis, lab results, radiology results, the need to transfer to another facility, [facility] does not immediately have the required specialist. ED course: Pt with another bloody bowel movement while here, will transfer to [facility] given no GI coverage. What initially looked and sounded like hemorrhoidal bleeding, now proving to be more internal with blood streaked stool, possibly diverticulosis. Not on blood thinners. . 01:25 ED course: Spoke with Dr. Jeffers at [facility], accepts as consult, will speak to rn hospitalist next. . 01:39 ED course: At request of [facility], asked patient and decides that prefers DNR status. . rn 01:46 ED course: Notified [facility] of patient's comments regarding suicidal thoughts. . rn 12/15 22:07 Order name: Basic Metabolic Panel; Complete Time: 23: rn 12/15 22:07 Order name: CBC with Diff; Complete Time: 23: rn 12/15 22:07 Order name: Hepatic Function; Complete Time: 23: rn 12/15 22:07 Order name: Lipase; Complete Time: 23: rn 12/15 22:08 Order name: Acetaminophen; Complete Time: 23: rn 12/15 22:08 Order name: ETOH Level; Complete Time: 23: rn 12/15 22:07 Order name: CT Abd/Pelvis - W/Contrast rn 12/15 22:08 Order name: PT-INR; Complete Time: 23:12/15 22:08 Order name: Ptt, Activated; Complete Time: 23:12/15 22:08 Order name: Salicylate; Complete Time: 00:33 rn 12/15 22:08 Order name: Urine Drug Screen; Complete Time: 00:33 rn 12/15 22:08 Order name: EKG; Complete Time: 22:08 rn 12/15 23:37 Order name: Urine Dipstick--Ancillary (enter results); Complete Time: 00:45 gm 12/15 22:07 Order name: IV Saline Lock; Complete Time: 22:26 rn 12/15 22:07 Order name: Labs collected and sent; Complete Time: 22:27 rn 12/15 22:08 Order name: EKG - Nurse/Tech; Complete Time: 22:26 rn 12/15 22:08 Order name: Urine Dipstick-Ancillary (obtain specimen); Complete Time: 23:33 rn Administered Medications: 12/15 23:10 Drug: NS 0.9% 500 ml Route: IV; Rate: bolus; Site: right antecubital; ao 12/16 00:00 Follow up: IV Status: Completed infusion; IV Intake: 500ml tl2 Disposition: 12/16/18 01:[address] [facility]. Diagnosis is Diverticulosis of large intestine without perforation or abscess with bleeding. - Reason for transfer: Higher level of care. - Accepting physician is Dr. Jeffers. - Condition is Stable. - Problem is new. - Symptoms are unchanged. Signatures: Dispatcher [employer] EDMS Federico Quintanilla MD MD rn Ortiz, Alex, RN RN ao Knox, Taylor, RN RN tl2 Corrections: (The following items were deleted from the chart) 03:14 01:27 12/16/2018 01:[address] [facility]. Diagnosis is tl2 Diverticulosis of large intestine without perforation or abscess with bleeding. Reason for transfer: Higher level of care. Accepting physician is Dr. Jeffers. Condition is Stable. Problem is new. Symptoms are unchanged. rn
--- NOTE | 2018-12-16 01:28 | ER ---
Nurse's Notes [facility] Name: Jose Thomas Age: 83 yrs Sex: Male : 1935 Arrival Date: 12/15/2018 Time: 22:06 Bed 3 Private MD: Diagnosis: Diverticulosis of large intestine without perforation or abscess with bleeding Presentation: 12/15 22:07 Presenting complaint: Patient states: Reports blood in stool this morning and lower tl2 abdominal pain. Pt reports suicidal ideations and states, "I am tired of all this crap and if I had a gun I would end it without hesitation". Pt states that if he were to leave here he would run out into the street in front of traffic. Transition of care: patient was not received from another setting of care. Onset of symptoms was December 15, 2018. Risk Assessment: Do you want to hurt yourself or someone else? Patient reports desire/thoughts of hurting themselves or someone else. Provider notified. Initial Sepsis Screen: Does the patient meet any 2 criteria? No. Patient's initial sepsis screen is negative. Does the patient have a suspected source of infection? No. Patient's initial sepsis screen is negative. Care prior to arrival: None. 22:07 Method Of Arrival: EMS: [facility] tl2 22:07 Acuity: HAO 2 tl2 Triage Assessment: 22:10 General: Appears in no apparent distress. comfortable, Behavior is calm, cooperative, tl2 appropriate for age, flat. Pain: Complains of pain in right lower quadrant and left lower quadrant. Neuro: Level of Consciousness is awake, alert, obeys commands, Oriented to person, place, time, situation. Cardiovascular: Denies chest pain. Respiratory: Airway is patent Respiratory effort is even, unlabored, Respiratory pattern is regular, symmetrical. GI: Abdomen is non-distended, Abd is soft and non tender Reports rectal bleeding. : No signs and/or symptoms were reported regarding the genitourinary system. Derm: Skin is pink, warm \\T\\ dry. Historical: - Allergies: 22:10 No Known Allergies; tl2 - Home Meds: 22:10 unknown BP med [Active]; tl2 - PMHx: 22:10 Arthritis; Bipolar disorder; CVA; Depression; diptheria; Headaches; Hypertension; tl2 Myocardial infarction; - Immunization history:: Adult Immunizations up to date. - Social history:: Smoking status: Patient/guardian denies using tobacco. - Ebola Screening: : No symptoms or risks identified at this time. - Family history:: not pertinent. - Hospitalizations: : No recent hospitalization is reported. Screenin:13 Abuse screen: Denies threats or abuse. Nutritional screening: No deficits noted. tl2 Tuberculosis screening: No symptoms or risk factors identified. Fall Risk Fall in past 12 months (25 points). Assessment: 22:12 General: see triage assessment. tl2 12/16 01:02 Reassessment: Helped patient use bedside commode to have a BM. ao 01:05 Reassessment: pt had BM with streaks of bright red blood. notified. tl2 03:13 Reassessment: Patient appears in no apparent distress at this time. Patient and/or tl2 family updated on plan of care and expected duration. Pain level reassessed. Patient is alert, oriented x 3, equal unlabored respirations, skin warm/dry/pink. pt verbalized understanding of need for transfer. Psych: 12/15 22:29 Subjective: Patient's mood is hopeless, Delusions are denied, Hallucinations are denied tl2 Having thoughts of suicide. Plan for suicide is Pt states if he had a gun he would shoot himself without hesitation or he would walk out into the road and get hit by a truck. Objective: Patient is cooperative, Speech is normal, Affect is flat. Interventions: Removed personal items and placed in bag. Patient placed in hospital gown. Suicide Risk Assessment: Sad Person Scale: Sex of patient: Male: Score 1 point. Age of patient: Score 1 point if patient is over 65. Depression: Score 1 point if signs of depression are present. Previous Attempt: Score 0 point if patient has not previously attempted suicide. Substance Abuse: Score 0 point if patient does not abuse alcohol or drugs. Rational Thinking: Score 0 point if patient has rational thinking. Social Support: Score 1 point if social support is lacking and/or unavailable. Organized Plan: Score 1 point if patient had a plan in place. Relationship: Score 1 point if patient is , , , or for a single male Chronic Sickness: Score 1 point if patient has illness, chronic, debilitating, or severe. TOTAL POINTS: If total points are 5-6, proposed clinical action is to strongly consider hospitalization, depending upon confidence in the follow-up arrangement. Implement suicide precautions. Safety Checks: Personal items have been removed. Door is open. No visitors are present at this time. Pt denies substance abuse. Commitment: Patient will be a voluntary commitment. Vital Signs: 22:10 BP 144 / 73; Pulse 76; Resp 18; Temp 98.4(O); Pulse Ox 100% on R/A; Weight 104.33 kg; tl2 Height 5 ft. 7 in. (170.18 cm); Pain 3/10; 23:19 BP 144 / 80; Pulse 72; Resp 18; Pulse Ox 99% on R/A; tl2 12/16 00:27 BP 150 / 76; Pulse 70; Resp 18; Pulse Ox 97% on R/A; mw2 03:10 BP 173 / 90 (/pedi); Pulse 70; Resp 18; Pulse Ox 99% on R/A; tl2 12/15 22:10 Body Mass Index 36.02 (104.33 kg, 170.18 cm) tl2 ED Course: 12/15 22:06 Patient arrived in ED. tl2 22:06 Federico Quintanilla MD is Attending Physician. rn 22:09 Triage completed. tl2 22:10 Arm band placed on right wrist. tl2 22:13 Patient has correct armband on for positive identification. Placed in gown. Bed in low tl2 position. Call light in reach. Side rails up X2. 22:13 Served as a service liaison representative during rectal exam. tl2 22:15 Safety checks: Items removed: yes. Door open/sign placed on door: yes. Family/friend mw2 present: no. Sitter present: Yes. 22:26 Felicita Valerio RN is Primary Nurse. tl2 22:27 Inserted saline lock: 18 gauge in right antecubital area, using aseptic technique. tl2 Blood collected. placed by KRYSTAL James. 22:30 Safety checks: Items removed: yes. Door open/sign placed on door: yes. Family/friend mw2 present: no. Sitter present: Yes. 22:45 Safety checks: Items removed: yes. Door open/sign placed on door: yes. Family/friend mw2 present: no. Sitter present: Yes. 23:00 Safety checks: Items removed: yes. Door open/sign placed on door: yes. Family/friend mw2 present: no. Sitter present: Yes. 23:15 Safety checks: Door open/sign placed on door: yes. Family/friend present: no. Sitter mw2 present: Yes. 23:45 Safety checks: Items removed: yes. Door open/sign placed on door: yes. Family/friend mw2 present: no. Sitter present: Yes. 12/16 00:00 Safety checks: Items removed: yes. Door open/sign placed on door: yes. Family/friend mw2 present: no. Sitter present: Yes. 00:15 Safety checks: Items removed: yes. Door open/sign placed on door: yes. Family/friend mw2 present: no. Sitter present: Yes. Assisted with urinal. 00:19 CT Abd/Pelvis - W/Contrast In Process Unspecified. EDMS 00:[address] pt [address]. mw2 00:30 CT completed. Patient tolerated procedure well. Patient moved to CT via stretcher. Patient moved back from CT. 00:30 pt brought back from CT. mw2 00:30 Safety checks: Items removed: yes. Door open/sign placed on door: yes. Family/friend mw2 present: no. Sitter present: Yes. 00:45 Safety checks: Items removed: yes. Door open/sign placed on door: yes. Family/friend mw2 present: no. Sitter present: Yes. 01:00 Safety checks: Items removed: yes. Door open/sign placed on door: yes. Family/friend mw2 present: no. Sitter present: Yes. 01:09 initiated transfer with [facility]. spoke with mikal kamara RN. 01:15 Safety checks: Items removed: yes. Door open/sign placed on door: yes. Family/friend mw2 present: no. Sitter present: Yes. 01:23 dr barba spoke with dr quintanilla. 01:28 dr tan spoke with dr quintanilla. 01:30 Safety checks: Items removed: yes. Door open/sign placed on door: yes. Family/friend mw2 present: no. Sitter present: Yes. :45 Safety checks: Items removed: yes. Door open/sign placed on door: yes. Family/friend mw2 present: no. Sitter present: Yes. 01:47 mikal kamara RN asked for a 15 min extension. 02:00 Safety checks: Items removed: yes. Door open/sign placed on door: yes. Family/friend mw2 present: no. Sitter present: Yes. 02:11 \\T\\ 0211 administrative approval was given by mikal kamara RN. 02:15 Safety checks: Items removed: yes. Door open/sign placed on door: yes. Family/friend mw2 present: no. Sitter present: Yes. 02:25 faxed facesheet and MOT to [phone]. 02:30 Safety checks: Items removed: yes. Door open/sign placed on door: yes. Family/friend mw2 present: no. Sitter present: Yes. 02:45 Safety checks: Items removed: yes. Door open/sign placed on door: yes. Family/friend mw2 present: no. Sitter present: Yes. 03:11 Patient transferred, IV remains in place. tl2 Administered Medications: 12/15 23:10 Drug: NS 0.9% 500 ml Route: IV; Rate: bolus; Site: right antecubital; ao 12/16 00:00 Follow up: IV Status: Completed infusion; IV Intake: 500ml tl2 Intake: 00:00 IV: 500ml; Total: 500ml. tl2 Outcome: 01:27 ER care complete, transfer ordered by . rn 03:11 Transferred by ground EMS to [facility], Transfer form completed. tl2 03:11 Condition: stable 03:11 Discharge instructions given to patient, Instructed on the need for transfer. 03:14 Patient left the ED. tl2 Signatures: Dispatcher [employer] EDKaz Rodriguez Roman, MD MD rn Ortiz, Alex, RN RN ao Knox, Taylor, RN RN tl2 Filiberto Pride mw2 Luiza Caceres Corrections: (The following items were deleted from the chart) 00:44 00:43 BP 150 / 76; Pulse 66bpm; Resp 18bpm; Pulse Ox 98% RA; tl2 tl2 01:30 00:26 pt brought back from [place]. mw2 mw2
[2018-12-16 03:22] VITALS: TEMP 98.4
[2018-12-16 03:26] VITALS: BP 173/90; O2SAT 99
--- NOTE | 2018-12-16 06:59 | EKG ---
Test Date: 2018-12-15 Test Time: 22:21:58 Multifocal Lens Inspector: DALTON MEASUREMENT RESULTS: Intervals: Rate: 73 UT: 200 QRSD: 98 QT: 404 QTc: 445 Wiley: P: 55 UT: 200 QRS: -21 T: 25 INTERPRETIVE STATEMENTS: Normal sinus rhythm Incomplete right bundle branch block Borderline ECG Compared to ECG 12/14/2018 04:01:25 Incomplete right bundle-branch block now present Left ventricular hypertrophy no longer present Electronically Signed On 12-16-18 06:50:53 SOFTWARE INTEGRATION DEVELOPER by Raad Neville
--- NOTE | 2018-12-16 08:21 | RAD REPORT ---
EXAM DESCRIPTION: CTAbdomen Pelvis W Contrast - 12/16/2018 3:46 am CLINICAL HISTORY: Abdominal pain. ABD PAIN COMPARISON: Chest For Pe Angio dated 12/14/2018; Head C Spine Mpr Wo Con dated 11/30/2018 TECHNIQUE: Biphasic CT imaging of the abdomen and pelvis was performed with 100 ml non-ionic IV cont rast. All CT scans are performed using dose optimization technique as appropriate and may include automated exposure control or mA/KV adjustment according to patient size. FINDINGS: The lung bases are clear.Moderate hiatal hernia. The liver, spleen, pancreas, adrenal glands are within normal limits. Bilateral renal cysts are prese nt without solid renal mass or hydronephrosis. Inferior right renal cyst measuring 6.7 x 5.3 cm conta ins a slightly thickened septum. No bowel obstruction, free air, free fluid or abscess. Moderate diverticulosis is present involving t he sigmoid colon without evidence of diverticulitis. Prominent stool volume in the rectum. The append ix is normal. No evidence of significant lymphadenopathy. No suspicious bony findings. IMPRESSION: Prominent sigmoid diverticulosis is present without diverticulitis. Moderate retained colonic stool in the rectum.
== END 2018-12-16 03:14 | disposition short-term general hospital (02) ==
LOC: ER 22:05
DX: K57.30 Diverticulosis of large intestine without perforation or abscess without bleeding (principal); R45.851 Suicidal ideations; F32.9 Major depressive disorder, single episode, unspecified; I10 Essential (primary) hypertension
CPT/HCPCS: 36415; 74177; 80048; 80076; 80307; 80320; 80329; 81003; 83690; 85025; 85610; 85730; 93005; 96360; 99285; Q9967

== ENCOUNTER 2018-12-28 23:26 | Emergency (ER) | payer OTHER ==
--- OUTSIDE RECORDS SUMMARY | 2018-12-28 23:29 | XMS REPORT | Clinical Summary ---
:[address] [facility] Address [address] [place] [address] Care Team Providers Name Role Phone Unavailable Primary Care Provider Unavailable Allergies No Known Allergies Medications Medication Sig Dispensed Refills Start Date End Date Status QUEtiapine (SEROQUEL) Take 1 tablet (50 30 tablet 0 12/18/2018 01/17/2019 Active 50 MG tablet mg total) by mouth nightly for 30 days. sertraline (ZOLOFT) Take 1 tablet (50 30 tablet 0 12/19/2018 12/19/2019 Active 50 MG tablet mg total) by mouth daily. Active Problems Problem Noted Date Diverticulosis 12/16/2018 Encounters Date Type Specialty Care Team Description 12/18/2018 Anesthesia Event Gastroenterology Georgi Gleason MD 12/18/2018 Surgery Gastroenterology Courtney Taylor MD 12/16/2018 [facility] Internal Ilene Law Diverticulosis of large intestine with hemorrhage; - Encounter Medicine MD Viv Depression, unspecified depression type; 12/18/2018 Radha, Suicidal ideation MD Geeta Tanner Umar, MD 12/16/2018 Travel after 12/27/2017 Social History Tobacco Use Types Packs/Day Years Used Date Never Smoker Smokeless Tobacco: Never Used Sex Assigned at Date Recorded Not on file Job Start Date Occupation Industry Not on file Not on file Not on file Travel History Travel Start Travel End No recent travel history available. Last Filed Vital Signs Vital Sign Reading Time Taken Blood Pressure 125/68 12/18/2018 10:03 AM [employer] Pulse 62 12/18/2018 10:03 AM [employer] Temperature 36.2 C (97.2 F) 12/18/2018 10:03 AM [employer] Respiratory Rate 18 12/18/2018 10:03 AM [employer] Oxygen Saturation 98% 12/18/2018 10:03 AM [employer] Inhaled Oxygen Concentration - - Weight 100.3 kg (221 lb 3.2 oz) 12/18/2018 7:45 AM [employer] Height 175.3 cm (5' 9") 12/18/2018 7:45 AM [employer] Body Mass Index 32.67 12/18/2018 7:45 AM [employer] Plan of Treatment Not on file Procedures Procedure Name Priority Date/Time Associated Comments Diagnosis REPORT OF PROCEDURE - 12/18/2018 8:41 ENDOSCOPY URL AM [employer] COLONOSCOPY 12/18/2018 8:00 Rectal bleed AM [employer] RPR Routine 12/17/2018 4:10 Results for this PM [employer] procedure are in the results section. TSH/FREE T4 IF Routine 12/17/2018 3:38 Results for this INDICATED PM [employer] procedure are in the results section. VITAMIN B12 AND FOLATE Routine 12/17/2018 3:38 Results for this PM [employer] procedure are in the results section. CBC W/PLT COUNT & AUTO Routine 12/17/2018 4:25 Results for this DIFFERENTIAL AM [employer] procedure are in the results section. COMPREHENSIVE Routine 12/17/2018 4:25 Results for this METABOLIC PANEL AM [employer] procedure are in the results section. CBC W/PLT COUNT & AUTO Routine 12/17/2018 4:25 Results for this DIFFERENTIAL AM [employer] procedure are in the results section. URINALYSIS W/ Routine 12/16/2018 6:16 Results for this MICROSCOPIC PM [employer] procedure are in the results section. CBC W/PLT COUNT & AUTO Routine 12/16/2018 6:02 Results for this DIFFERENTIAL AM [employer] procedure are in the results section. HEPATIC FUNCTION PANEL Routine 12/16/2018 6:02 Results for this AM [employer] procedure are in the results section. PROTHROMBIN TIME/INR Routine 12/16/2018 6:02 Results for this AM [employer] procedure are in the results section. BASIC METABOLIC PANEL Routine 12/16/2018 6:02 Results for this (7) AM [employer] procedure are in the results section. CBC W/PLT COUNT & AUTO Routine 12/16/2018 6:02 Results for this DIFFERENTIAL AM [employer] procedure are in the results section. after 12/27/2017 Results REPORT OF PROCEDURE - ENDOSCOPY URL (12/18/2018 8:41 AM [employer]) Narrative Performed At RPR (12/17/2018 4:10 PM [employer]) RPR Nonreactive Nonreactive [facility] Specimen Blood - Arm, Right Performing Organization Address [facility]/Zipcode Phone Number [address] [address] CENTER Vitamin B12 and Folate (12/17/2018 3:38 PM [employer]) Vitamin B12 338 213 - 816 pg/mL [facility] Folate 10.4 >=7.0 ng/mL [facility] Specimen Blood - Arm, Right Performing Organization Address City/[facility] Phone Number [address] [address] CENTER TSH/Free T4 If Indicated (12/17/2018 3:38 PM [employer]) TSH 0.54 0.35 - 4.94 uIU/mL [facility] Specimen Blood - Arm, Right Performing Organization Address [facility] Phone Number [address] [address] CENTER CBC with platelet count + automated diff (12/17/2018 4:25 AM [employer])Only the most recent of2 resultswithin the time period is included. WBC 6.3 3.5 - 10.5 K/L [facility] RBC 4.13 (L) 4.63 - 6.08 M/L [facility] Hemoglobin 11.5 (L) 13.7 - 17.5 GM/DL [facility] Hematocrit 35.9 (L) 40.1 - 51.0 % [facility] MCV 86.9 79.0 - 92.2 fL [facility] MCH 27.8 25.7 - 32.2 pg [facility] MCHC 32.0 (L) 32.3 - 36.5 GM/DL [facility] RDW 14.0 11.6 - 14.4 % [facility] Platelets 280 150 - 450 K/CU MM [facility] MPV 9.7 9.4 - 12.4 fL [facility] nRBC 0 0 - 0 /100 WBC [facility] % Neutros 62 % [facility] % Lymphs 22 % [facility] % Monos 7 % [facility] % Eos 7 % [facility] % Baso 1 % [facility] # Neutros 3.91 1.78 - 5.38 K/L [facility] # Lymphs 1.39 1.32 - 3.57 K/L [facility] # Monos 0.45 0.30 - 0.82 K/L [facility] # Eos 0.43 0.04 - 0.54 K/L [facility] # Baso 0.04 0.01 - 0.08 K/L [facility] Immature Granulocytes-Relative 1 0 - 1 % [facility] Specimen Blood Performing Organization Address City/State/Zipcode Phone Number [facility] [address] [place] [address] [phone] CENTER Comprehensive metabolic panel (12/17/2018 4:25 AM [employer]) Protein, Total 6.1 6.0 - 8.3 gm/dL [facility] Albumin 3.5 3.5 - 5.0 g/dL [facility] Alkaline Phosphatase 61 40 - 150 U/L [facility] Total Bilirubin 0.4 0.2 - 1.2 mg/dL [facility] Sodium 137 136 - 145 meq/L [facility] Potassium 3.8 3.5 - 5.1 meq/L [facility] Chloride 106 98 - 107 meq/L [facility] CO2 23 22 - 29 meq/L [facility] BUN 12 7 - 21 mg/dL [facility] Creatinine 0.84 0.57 - 1.25 mg/dL [facility] Glucose 81 70 - 105 mg/dL [facility] Calcium 8.8 8.4 - 10.2 mg/dL [facility] AST 14 5 - 34 U/L [facility] ALT 17 6 - 55 U/L [facility] EGFR 87Comment: ESTIMATED GFR mL/min/1.73 sq m [facility] IS NOT ACCURATE [facility] CREATININE CLEARANCE IN PREDICTING GLOMERULAR FILTRATION RATE. ESTIMATED GFR IS NOT APPLICABLE FOR DIALYSIS PATIENTS. Specimen Blood Performing Organization Address City/State/Zipcode Phone Number [facility] [address] [place] [address] CENTER Urinalysis w/ Microscopic (12/16/2018 6:16 PM [employer]) Color, UA Light Yellow [facility] Clarity, UA Clear [facility] Specific [place], UA 1.009 1.001 - 1.035 [facility] pH, UA 7.0 5.0 - 8.0 [facility] Protein, UA Negative Negative [facility] Glucose, UA Negative Negative [facility] Ketones, UA Negative Negative [facility] Bilirubin, UA Negative Negative [facility] Blood, UA Negative Negative [facility] Nitrite, UA Negative Negative [facility] Leukocytes, UA Negative Negative [facility] Urobilinogen, UA 0.2 0.2 - 1.0 mg/dL [facility] RBC, UA <1 /HPF [facility] WBC, UA <1 /HPF [facility] Specimen Source Urine, Voided [facility] Specimen Urine - Urine, Voided Performing Organization Address City/[facility]ode Phone Number [facility] [address] [place] [phone] CENTER Prothrombin time/INR (12/16/2018 6:02 AM [employer]) Protime 13.0 11.7 - 14.7 seconds [facility] INR 1.0 <=5.9 [facility] Specimen Blood Narrative Performed At RECOMMENDED COUMADIN/WARFARIN INR THERAPY [facility] RANGES STANDARD DOSE: 2.0 - 3.0 Includes: PROPHYLAXIS for venous thrombosis, systemic embolization; TREATMENT for venous thrombosis and/or pulmonary embolus. HIGH RISK: Target INR is 2.5-3.5 for patients with mechanical heart valves. Performing Organization Address City/[facility] Centercome Phone Number [address] [address] [place] Hepatic function panel (12/16/2018 6:02 AM [employer]) Protein, Total 6.2 6.0 - 8.3 gm/dL [facility] Albumin 3.6 3.5 - 5.0 g/dL [facility] Total Bilirubin 0.2 0.2 - 1.2 mg/dL [facility] Bilirubin, Direct 0.1 0.1 - 0.5 mg/dL [facility] Alkaline Phosphatase 63 40 - 150 U/L [facility] AST 19 5 - 34 U/L [facility] ALT 24 6 - 55 U/L [facility] Specimen Blood Performing Organization Address City/[facility]/Zipcode Phone Number [address] [address] [phone] CENTER Basic metabolic panel (12/16/2018 6:02 AM [employer]) Sodium 138 136 - 145 meq/L [facility] Potassium 4.3 3.5 - 5.1 meq/L [facility] Chloride 106 98 - 107 meq/L [facility] CO2 25 22 - 29 meq/L [facility] BUN 21 7 - 21 mg/dL [facility] Creatinine 0.81 0.57 - 1.25 mg/dL [facility] Glucose 93 70 - 105 mg/dL [facility] Calcium 9.0 8.4 - 10.2 mg/dL [facility] EGFR 91Comment: ESTIMATED GFR IS mL/min/1.73 sq m [facility] NOT ACCURATE CREATININE [facility] CLEARANCE IN PREDICTING GLOMERULAR FILTRATION RATE. ESTIMATED GFR IS NOT APPLICABLE FOR DIALYSIS PATIENTS. Specimen Blood Performing Organization Address City/State/Zipcode Phone Number [facility] [address] [place] [address] [place] after 12/27/2017 Insurance Payer Benefit Plan / Group Subscriber ID Type Phone Address PENDING MEDICAID-OTHER EES PENDING MEDICAID Advance Directives For more information, please contact:[address] [phone] Code Status Date Activated Date Inactivated Comments Full Code 12/16/2018 5:09 AM This code status was determined by: Patient
--- OUTSIDE RECORDS SUMMARY | 2018-12-28 23:29 | XMS REPORT ---
:1935 [facility] Address [address] [place] [address] Care Team Providers Name Role Phone BARON JORDAN Unavailable Unavailable Problems This patient has no known problems. Allergies, Adverse Reactions, Alerts This patient has no known allergies or adverse reactions. Medications This patient has no known medications. Results Test Description Test Time Test Comments Text Results Atomic Results Result Comments RPR 2018-12-18 16:24:00 Test Item Value Reference Range Comments RPR SCREEN (BEAKER) (test sndu=248) Nonreactive Nonreactive TSH/FREE T4 IF [id number] 16:46:00 Test Item Value Reference Range Comments THYROID STIMULATING HORMONE (BEAKER) (test 0.54 uIU/mL 0.35-4.94 osfm=536) VITAMIN B12 AND [id number] 16:46:00 Test Item Value Reference Range Comments VITAMIN B12 (BEAKER) (test dvxj=243) 338 pg/mL 213-816 FOLATE (BEAKER) (test inrr=546) 10.4 ng/mL >=7.0 COMPREHENSIVE METABOLIC [id number] 06:22:00 Test Item Value Reference Range Comments TOTAL PROTEIN (BEAKER) 6.1 gm/dL 6.0-8.3 (test izvj=823) ALBUMIN (BEAKER) (test 3.5 g/dL 3.5-5.0 jxdr=4299) ALKALINE PHOSPHATASE 61 U/L 40-150 (BEAKER) (test zmqi=162) BILIRUBIN TOTAL (BEAKER) 0.4 mg/dL 0.2-1.2 (test zste=963) SODIUM (BEAKER) (test 137 meq/L 136-145 npio=500) POTASSIUM (BEAKER) (test 3.8 meq/L 3.5-5.1 mxml=230) CHLORIDE (BEAKER) (test 106 meq/L 98-107 uqqq=833) CO2 (BEAKER) (test 23 meq/L 22-29 xtje=943) BLOOD UREA NITROGEN 12 mg/dL 7-21 (BEAKER) (test rilh=933) CREATININE (BEAKER) (test 0.84 mg/dL 0.57-1.25 abpr=327) GLUCOSE RANDOM (BEAKER) 81 mg/dL 70-105 (test dkbo=781) CALCIUM (BEAKER) (test 8.8 mg/dL 8.4-10.2 ewem=364) AST (SGOT) (BEAKER) (test 14 U/L 5-34 efmv=871) ALT (SGPT) (BEAKER) (test 17 U/L 6-55 mtgz=791) EGFR (BEAKER) (test 87 mL/min/1.73 sq m ESTIMATED GFR IS NOT wiaq=5583) ACCURATE CREATININE CLEARANCE IN PREDICTING GLOMERULAR FILTRATION RATE. ESTIMATED GFR IS NOT APPLICABLE FOR DIALYSIS PATIENTS. CBC W/PLT COUNT & AUTO [id number] 05:34:00 Test Item Value Reference Range Comments WHITE BLOOD CELL COUNT (BEAKER) (test xxjk=153) 6.3 K/ L 3.5-10.5 RED BLOOD CELL COUNT (BEAKER) (test cfuz=715) 4.13 M/ L 4.63-6.08 HEMOGLOBIN (BEAKER) (test hosr=902) 11.5 GM/DL 13.7-17.5 HEMATOCRIT (BEAKER) (test mqja=961) 35.9 % 40.1-51.0 MEAN CORPUSCULAR VOLUME (BEAKER) (test vcme=761) 86.9 fL 79.0-92.2 MEAN CORPUSCULAR HEMOGLOBIN (BEAKER) (test 27.8 pg 25.7-32.2 lvzk=012) MEAN CORPUSCULAR HEMOGLOBIN CONC (BEAKER) (test 32.0 GM/DL 32.3-36.5 heln=403) RED CELL DISTRIBUTION WIDTH (BEAKER) (test 14.0 % 11.6-14.4 iitn=650) PLATELET COUNT (BEAKER) (test jgyr=235) 280 K/CU MM 150-450 MEAN PLATELET VOLUME (BEAKER) (test cgkj=927) 9.7 fL 9.4-12.4 NUCLEATED RED BLOOD CELLS (BEAKER) (test 0 /100 WBC 0-0 bnoc=678) NEUTROPHILS RELATIVE PERCENT (BEAKER) (test 62 % zfgv=917) LYMPHOCYTES RELATIVE PERCENT (BEAKER) (test 22 % zvzb=387) MONOCYTES RELATIVE PERCENT (BEAKER) (test 7 % aoyv=897) EOSINOPHILS RELATIVE PERCENT (BEAKER) (test 7 % hsad=876) BASOPHILS RELATIVE PERCENT (BEAKER) (test 1 % fuhw=340) NEUTROPHILS ABSOLUTE COUNT (BEAKER) (test 3.91 K/ L 1.78-5.38 nksg=556) LYMPHOCYTES ABSOLUTE COUNT (BEAKER) (test 1.39 K/ L 1.32-3.57 mbyi=329) MONOCYTES ABSOLUTE COUNT (BEAKER) (test 0.45 K/ L 0.30-0.82 trkh=550) EOSINOPHILS ABSOLUTE COUNT (BEAKER) (test 0.43 K/ L 0.04-0.54 urnr=389) BASOPHILS ABSOLUTE COUNT (BEAKER) (test 0.04 K/ L 0.01-0.08 gfue=535) IMMATURE GRANULOCYTES-RELATIVE PERCENT (BEAKER) 1 % 0-1 (test ogri=2703) URINALYSIS W/ [id number] 19:09:00 Test Item Value Reference Range Comments COLOR (BEAKER) (test xaqj=601) Light Yellow CLARITY (BEAKER) (test nnns=526) Clear SPECIFIC GRAVITY UA (BEAKER) (test pwbh=625) 1.009 1.001-1.035 PH UA (BEAKER) (test ztzc=841) 7.0 5.0-8.0 PROTEIN UA (BEAKER) (test jkmf=817) Negative Negative GLUCOSE UA (BEAKER) (test utoc=163) Negative Negative KETONES UA (BEAKER) (test rtnw=748) Negative Negative BILIRUBIN UA (BEAKER) (test ovcz=073) Negative Negative BLOOD UA (BEAKER) (test abea=888) Negative Negative NITRITE UA (BEAKER) (test jxfj=858) Negative Negative LEUKOCYTE ESTERASE UA (BEAKER) (test scjq=408) Negative Negative UROBILINOGEN UA (BEAKER) (test qvqh=816) 0.2 mg/dL 0.2-1.0 RBC UA (BEAKER) (test ozhe=510) < /HPF WBC UA (BEAKER) (test slgy=672) < /HPF SOURCE(BEAKER) (test tkhb=0626) Urine, Voided PROTHROMBIN TIME/[id number] 06:35:00 Test Item Value Reference Range Comments PROTIME (BEAKER) (test gawy=345) 13.0 seconds 11.7-14.7 INR (BEAKER) (test mftm=201) 1.0 <=5.9 RECOMMENDED COUMADIN/WARFARIN INR THERAPY RANGESSTANDARD DOSE: 2.0 - 3.0 Includes: PROPHYLAXIS forvenous thrombosis, systemic embolization; TREATMENT for venous thrombosis and/or pulmonary embolus.HIGH RISK: Target INR is 2.5-3.5 for patients with mechanical heart valves.HEPATIC FUNCTION [id number] 06:32 :00 Test Item Value Reference Range Comments TOTAL PROTEIN (BEAKER) (test uzut=752) 6.2 gm/dL 6.0-8.3 ALBUMIN (BEAKER) (test kecy=3148) 3.6 g/dL 3.5-5.0 BILIRUBIN TOTAL (BEAKER) (test kier=655) 0.2 mg/dL 0.2-1.2 BILIRUBIN DIRECT (BEAKER) (test nyxz=735) 0.1 mg/dL 0.1-0.5 ALKALINE PHOSPHATASE (BEAKER) (test xqpw=548) 63 U/L 40-150 AST (SGOT) (BEAKER) (test houc=746) 19 U/L 5-34 ALT (SGPT) (BEAKER) (test lgsj=385) 24 U/L 6-55 BASIC METABOLIC [id number] 06:32:00 Test Item Value Reference Range Comments SODIUM (BEAKER) (test 138 meq/L 136-145 inxe=737) POTASSIUM (BEAKER) (test 4.3 meq/L 3.5-5.1 rwgr=852) CHLORIDE (BEAKER) (test 106 meq/L 98-107 masz=807) CO2 (BEAKER) (test 25 meq/L 22-29 qrzu=479) BLOOD UREA NITROGEN 21 mg/dL 7-21 (BEAKER) (test qgca=545) CREATININE (BEAKER) (test 0.81 mg/dL 0.57-1.25 skzw=328) GLUCOSE RANDOM (BEAKER) 93 mg/dL 70-105 (test dlsm=089) CALCIUM (BEAKER) (test 9.0 mg/dL 8.4-10.2 pvvd=678) EGFR (BEAKER) (test 91 mL/min/1.73 sq m ESTIMATED GFR IS NOT gcpc=8844) ACCURATE CREATININE CLEARANCE IN PREDICTING GLOMERULAR FILTRATION RATE. ESTIMATED GFR IS NOT APPLICABLE FOR DIALYSIS PATIENTS. CBC W/PLT COUNT & AUTO [id number] 06:14:00 Test Item Value Reference Range Comments WHITE BLOOD CELL COUNT (BEAKER) (test yhpb=842) 6.0 K/ L 3.5-10.5 RED BLOOD CELL COUNT (BEAKER) (test kfip=514) 4.19 M/ L 4.63-6.08 HEMOGLOBIN (BEAKER) (test fdnw=648) 11.6 GM/DL 13.7-17.5 HEMATOCRIT (BEAKER) (test eozy=793) 36.4 % 40.1-51.0 MEAN CORPUSCULAR VOLUME (BEAKER) (test guwi=320) 86.9 fL 79.0-92.2 MEAN CORPUSCULAR HEMOGLOBIN (BEAKER) (test 27.7 pg 25.7-32.2 dzhj=301) MEAN CORPUSCULAR HEMOGLOBIN CONC (BEAKER) (test 31.9 GM/DL 32.3-36.5 daqi=026) RED CELL DISTRIBUTION WIDTH (BEAKER) (test 13.8 % 11.6-14.4 hjgg=154) PLATELET COUNT (BEAKER) (test wcdh=603) 263 K/CU MM 150-450 MEAN PLATELET VOLUME (BEAKER) (test tiac=046) 9.2 fL 9.4-12.4 NUCLEATED RED BLOOD CELLS (BEAKER) (test 0 /100 WBC 0-0 owfp=007) NEUTROPHILS RELATIVE PERCENT (BEAKER) (test 60 % gmkh=747) LYMPHOCYTES RELATIVE PERCENT (BEAKER) (test 29 % xotc=247) MONOCYTES RELATIVE PERCENT (BEAKER) (test 7 % xfcw=832) EOSINOPHILS RELATIVE PERCENT (BEAKER) (test 4 % mnml=087) BASOPHILS RELATIVE PERCENT (BEAKER) (test 1 % fdhb=106) NEUTROPHILS ABSOLUTE COUNT (BEAKER) (test 3.58 K/ L 1.78-5.38 ikra=521) LYMPHOCYTES ABSOLUTE COUNT (BEAKER) (test 1.71 K/ L 1.32-3.57 gwax=928) MONOCYTES ABSOLUTE COUNT (BEAKER) (test 0.39 K/ L 0.30-0.82 ctsf=396) EOSINOPHILS ABSOLUTE COUNT (BEAKER) (test 0.22 K/ L 0.04-0.54 fgre=790) BASOPHILS ABSOLUTE COUNT (BEAKER) (test 0.03 K/ L 0.01-0.08 zqmj=729) IMMATURE GRANULOCYTES-RELATIVE PERCENT (BEAKER) 1 % 0-1 (test mvwx=9388)
[2018-12-29 00:23] LABS: Absolute Lymphocytes (CBC) 0.8 K/uL (0.7-4.9); Absolute Monocytes 0.5 K/uL (0.1-1.3); Absolute Neutrophil 3.7 K/uL (1.8-8.0); Basophils % 0.7 % (0-1.3); Eosinophils % 7.4 % (0-4.4); Hematocrit 39.5 % (39.6-49.0); Lymphocytes % 14.2 % (15.3-44.8); MPV 8.4 fL (7.6-11.3); Monocytes % 8.4 % (3.3-12.3); RBC Red Blood Cell Count 4.66 M/uL (4.33-5.43)
[2018-12-29 00:42] LABS: Albumin 3.6 g/dL (3.4-5.0); Bilirubin Direct 0.1 mg/dL (0-0.2); Bilirubin Total 0.4 mg/dL (0.2-1.0); Protein, Total 6.8 g/dL (6.4-8.2)
[2018-12-29] MEDS ORDERED: NA CHLORIDE 0.9% 1,000 ML ONE (01:53)
[2018-12-29] MEDS ORDERED: CIPROFLOXACIN 400mg IV 400 MG/200 ML BAG IV ONE (03:16)
[2018-12-29 03:35] LABS: Urine Blood NEGATIVE (NEG); Urine Glucose NEGATIVE (NEG); Urine Protein NEGATIVE (NEG); Urine pH 6.5 (5.0-7.0)
--- NOTE | 2018-12-29 06:37 | ER ---
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 pt c/o left lower quadrant pain. Transition of care: [facility]. Onset of symptoms was December 28, 2018. Risk Assessment: Do you want to hurt yourself or someone else? Patient reports no desire to harm self or others. Care prior to arrival: None. 23:39 Method Of Arrival: EMS: [facility] ak 23:39 Acuity: HAO 3 ak1 12/29 00:20 Initial Sepsis Screen: Does the patient meet any 2 criteria? No. Patient's initial mg2 sepsis screen is negative. Does the patient have a suspected source of infection? No. Patient's initial sepsis screen is negative. Triage Assessment: 12/28 23:40 General: Appears in no apparent distress. Behavior is calm, cooperative. Pain: ak1 Complains of pain in abdomen. Historical: - Allergies: 23:40 No Known Allergies; ak1 - Home Meds: 23:40 unknown BP med [Active]; ak1 - PMHx: 23:40 Arthritis; Bipolar disorder; CVA; Depression; diptheria; Headaches; Hypertension; ak1 Myocardial infarction; - Immunization history:: Adult Immunizations unknown. - Social history:: Smoking status: unknown. - Ebola Screening: : No symptoms or risks identified at this time. - Family history:: not pertinent. Screenin/12 00:20 Abuse screen: Denies threats or abuse. Denies injuries from another. Nutritional mg2 screening: No deficits noted. Tuberculosis screening: No symptoms or risk factors identified. Fall Risk IV access (20 points). Assessment: 00:19 General: Appears in no apparent distress. comfortable, Behavior is calm, cooperative. mg2 Pain: Complains of pain in abdomen, head Pain does not radiate. Pain currently is 4 out of 10 on a pain scale. Quality of pain is described as aching, Pain began gradually, 1 day ago. Is intermittent. Neuro: Level of Consciousness is awake, alert, obeys commands, Oriented to person, place, time, situation. Neuro: Reports headache. Cardiovascular: Capillary refill < 3 seconds Patient's skin is warm and dry. Respiratory: Airway is patent Respiratory effort is even, unlabored, Respiratory pattern is regular, symmetrical. GI: Reports lower abdominal pain, diarrhea. : No signs and/or symptoms were reported regarding the genitourinary system. EENT: No signs and/or symptoms were reported regarding the EENT system. Derm: Skin is intact, is healthy with good turgor, Skin is pink, warm \T\ dry. normal. Musculoskeletal: Circulation, motion, and sensation intact. Capillary refill < 3 seconds. 02:54 Reassessment: transport technician Cindy notified pt finished oral contrast. ak1 03:37 Reassessment: Patient appears in no apparent distress at this time. No changes from ak1 previously documented assessment. Patient and/or family updated on plan of care and expected duration. Pain level reassessed. Patient is alert, oriented x 3, equal unlabored respirations, skin warm/dry/pink. pt able to ambulate with walker. pt informed of wait for CT report. will continue to monitor. 04:21 Reassessment: pt remains in CT. report given to Ramandeep. ak1 04:45 Reassessment: Patient appears in no apparent distress at this time. Patient and/or cc3 family updated on plan of care and expected duration. Pain level reassessed. Patient is alert, oriented x 3, equal unlabored respirations, skin warm/dry/pink. Received patient from KRYSTAL Archibald as a case of diarrhea and headache still for stool specimen collection. Patient just came back from CT scan department, awaiting result. 05:25 Reassessment: Patient appears in no apparent distress at this time. Patient and/or cc3 family updated on plan of care and expected duration. Pain level reassessed. Patient is alert, oriented x 3, equal unlabored respirations, skin warm/dry/pink. 06:08 Reassessment: Patient appears in no apparent distress at this time. Patient and/or cc3 family updated on plan of care and expected duration. Pain level reassessed. Patient is alert, oriented x 3, equal unlabored respirations, skin warm/dry/pink. 07:00 Reassessment: Patient appears in no apparent distress at this time. Patient and/or cc3 family updated on plan of care and expected duration. Pain level reassessed. Patient is alert, oriented x 3, equal unlabored respirations, skin warm/dry/pink. Patient for discharge home to [facility], RN Leo asked charge nurse Caroline regarding the transport of the patient back to [facility] and was told that she will have to ask first the nursing pasteurizing supervisor. Vital Signs: 12/28 23:40 BP 140 / 80; Pulse 87; Resp 18; Temp 97.6(O); Pulse Ox 97% on R/A; Weight 99.79 kg (R); ak1 Height 6 ft. 0 in. (182.88 cm) (R); Pain /; 12/29 02:25 BP 150 / 91; Pulse 88; Resp 18; Pulse Ox 100% on R/A; mg2 04:45 BP 145 / 92; Pulse 66; Resp 18 S; Pulse Ox 99% on R/A; cc3 05:19 BP 146 / 87; Pulse 67; Resp 17 S; Pulse Ox 99% on R/A; cc3 06:18 BP 148 / 83; Pulse 66; Resp 18 S; Pulse Ox 99% on R/A; cc3 12/28 23:40 Body Mass Index 29.84 (99.79 kg, 182.88 cm) ak1 ED Course: 12/28 23:34 Patient arrived in ED. mg2 23:40 Triage completed. ak1 23:40 Arm band placed on Patient placed in an exam room, on a stretcher, on pulse oximetry, ak1 Patient notified of wait time. 23:48 Quinten Zamora, KRYSTAL is Primary Nurse. mg2 12/29 00:02 No provider procedures requiring assistance completed. Inserted saline lock: 20 gauge mg2 in right antecubital area, using aseptic technique. Blood collected. 00:20 Patient has correct armband on for positive identification. Bed in low position. Call mg2 light in reach. Side rails up X2. Pulse ox on. NIBP on. Door closed. Warm blanket given. Pillow given. 01:32 Rakesh Maloney MD is Attending Physician. hortencia 04:[address] via wheelchair. kw1 06:02 CT Abd/Pelvis - W/Contrast In Process Unspecified. EDMS 06:36 Dominic Magallanes MD is Referral Physician. hortencia 07:00 Report given to KRYSTAL Mckinley. cc3 08:50 IV discontinued, intact, bleeding controlled, No redness/swelling at site. Pressure ls4 dressing applied. Administered Medications: 01:40 Drug: NS 0.9% 500 ml Route: IV; Rate: bolus; Site: right antecubital; mg2 02:56 Follow up: Response: No adverse reaction; IV Status: Completed infusion mg2 02:03 Drug: NS 0.9% 1000 ml Route: IV; Rate: 125 ml/hr; Site: left antecubital; mg2 03:04 Drug: Cipro 400 mg Volume: 200 ml; Route: IVPB; Infused Over: 60 mins; Site: right mg2 antecubital; 05:00 Follow up: Response: No adverse reaction; IV Status: Completed infusion; IV Intake: cc3 200ml Intake: 05:00 IV: 200ml; Total: 200ml. cc3 Outcome: 06:36 Discharge ordered by . [facility] 08:49 Discharged to home ambulatory, via wheelchair, uses walker. walkes with walker steady. ls4 pt brought to bus stop with bus voucher 08:49 Condition: stable 08:49 Discharge instructions given to patient, family, Instructed on discharge instructions, follow up and referral plans. medication usage, safety practices, Demonstrated understanding of instructions, follow-up care, medications. 08:51 Patient left the ED. ls4 Signatures: Dispatcher [employer] EDWA Rakesh Maloney MD MD cha Krenek, Amber, RN RN ak1 Maxine Newell kw1 Quinten Zamora RN RN mg2 Ramandeep Lawler cc3 Arlen Moy, RN RN ls4
--- NOTE | 2018-12-29 06:37 | EDPHYS ---
Physician Documentation [facility] Name: Jose Thomas Age: 83 yrs Sex: Male : 1935 Arrival Date: 12/28/2018 Time: 23:34 Bed 14 Private MD: ED Physician Rakesh Maloney HPI: 12/29 01:38 This 83 yrs old Other Male presents to ER via EMS with complaints of Diarrhea, Headache.[facility] 01:38 The patient presents to the emergency department with diarrhea, abdominal pain, of the hortencia left upper quadrant and left lower quadrant. Onset: The symptoms/episode began/occurred 2 day(s) ago. Possible causes: unknown. The symptoms are aggravated by nothing. The symptoms are alleviated by nothing. Associated signs and symptoms: The patient has no apparent associated signs or symptoms. Severity of symptoms: At their worst the symptoms were mild moderate in the emergency department the symptoms are unchanged. The patient has not experienced similar symptoms in the past. Historical: - Allergies: 12/28 23:40 No Known Allergies; ak1 - Home Meds: 23:40 unknown BP med [Active]; ak1 - PMHx: 23:40 Arthritis; Bipolar disorder; CVA; Depression; diptheria; Headaches; Hypertension; ak1 Myocardial infarction; - Immunization history:: Adult Immunizations unknown. - Social history:: Smoking status: unknown. - Ebola Screening: : No symptoms or risks identified at this time. - Family history:: not pertinent. ROS: 12/29 01:38 Constitutional: Negative for fever, chills, and weight loss, Eyes: Negative for injury, hortencia pain, redness, and discharge, ENT: Negative for injury, pain, and discharge, Neck: Negative for injury, pain, and swelling, Cardiovascular: Negative for chest pain, palpitations, and edema, Respiratory: Negative for shortness of breath, cough, wheezing, and pleuritic chest pain, Back: Negative for injury and pain, : Negative for injury, bleeding, discharge, and swelling, MS/Extremity: Negative for injury and deformity, Skin: Negative for injury, rash, and discoloration, Neuro: Negative for headache, weakness, numbness, tingling, and seizure, Psych: Negative for depression, anxiety, suicide ideation, homicidal ideation, and hallucinations, Allergy/Immunology: Negative for hives, rash, and allergies, Endocrine: Negative for neck swelling, polydipsia, polyuria, polyphagia, and marked weight changes, Hematologic/Lymphatic: Negative for swollen nodes, abnormal bleeding, and unusual bruising. Abdomen/GI: Positive for abdominal pain, abdominal cramps, of the left upper quadrant and left lower quadrant. Exam: 01:38 Constitutional: This is a well developed, well nourished patient who is awake, alert, hortencia and in no acute distress. Head/Face: Normocephalic, atraumatic. Eyes: Pupils equal round and reactive to light, extra-ocular motions intact. Lids and lashes normal. Conjunctiva and sclera are non-icteric and not injected. Cornea within normal limits. Periorbital areas with no swelling, redness, or edema. ENT: Nares patent. No nasal discharge, no septal abnormalities noted. Tympanic membranes are normal and external auditory canals are clear. Oropharynx with no redness, swelling, or masses, exudates, or evidence of obstruction, uvula midline. Mucous membranes moist. Neck: Trachea midline, no thyromegaly or masses palpated, and no cervical lymphadenopathy. Supple, full range of motion without nuchal rigidity, or vertebral point tenderness. No Meningismus. Chest/axilla: Normal chest wall appearance and motion. Nontender with no deformity. No lesions are appreciated. Cardiovascular: Regular rate and rhythm with a normal S1 and S2. No gallops, murmurs, or rubs. Normal PMI, no JVD. No pulse deficits. Respiratory: Lungs have equal breath sounds bilaterally, clear to auscultation and percussion. No rales, rhonchi or wheezes noted. No increased work of breathing, no retractions or nasal flaring. Back: No spinal tenderness. No costovertebral tenderness. Full range of motion. Male : Normal genitalia with no discharge or lesions. Skin: Warm, dry with normal turgor. Normal color with no rashes, no lesions, and no evidence of cellulitis. MS/ Extremity: Pulses equal, no cyanosis. Neurovascular intact. Full, normal range of motion. Neuro: Awake and alert, GCS 15, oriented to person, place, time, and situation. Cranial nerves II-XII grossly intact. Motor strength 5/5 in all extremities. Sensory grossly intact. Cerebellar exam normal. Normal gait. Psych: Awake, alert, with orientation to person, place and time. Behavior, mood, and affect are within normal limits. 01:38 Abdomen/GI: Inspection: distension, Bowel sounds: normal, Palpation: mild abdominal tenderness, in the left upper quadrant and left lower quadrant, Liver: no appreciated palpable abnormalities, Hernia: not appreciated. 01:57 Abdomen/GI: Rectal exam: is unremarkable, rectal tone normal, Stool: guaiac negative, hortencia hemorrhoid(s), are not appreciated, mass, is not appreciated, swelling, is not appreciated, tenderness, is not appreciated, the exam is chaperoned by a family member. 06:34 Abdomen/GI: Rectal exam: [facility] Vital Signs: 12/28 23:40 BP 140 / 80; Pulse 87; Resp 18; Temp 97.6(O); Pulse Ox 97% on R/A; Weight 99.79 kg (R); ak1 Height 6 ft. 0 in. (182.88 cm) (R); Pain 9/10; 12/29 02:25 BP 150 / 91; Pulse 88; Resp 18; Pulse Ox 100% on R/A; mg2 04:45 BP 145 / 92; Pulse 66; Resp 18 S; Pulse Ox 99% on R/A; cc3 05:19 BP 146 / 87; Pulse 67; Resp 17 S; Pulse Ox 99% on R/A; cc3 06:18 BP 148 / 83; Pulse 66; Resp 18 S; Pulse Ox 99% on R/A; cc3 12/28 23:40 Body Mass Index 29.84 (99.79 kg, 182.88 cm) [facility] MDM: 01:[address] [facility] 01:40 Data reviewed: vital signs, nurses notes, lab test result(s), EKG, radiologic studies. [facility] 12/28 23:51 Order name: Basic Metabolic Panel; Complete Time: 01:36 mg2 12/28 23:51 Order name: CBC with Diff; Complete Time: 01:36 [facility] 12/28 23:51 Order name: Creatinine for Radiology; Complete Time: 01:36 mg2 12/28 23:51 Order name: Hepatic Function; Complete Time: 01:36 mg2 12/28 23:51 Order name: Lipase; Complete Time: 01:36 mg2 12/29 02:56 Order name: Urine Culture [facility] [place] 12/29 01:38 Order name: CT Abd/Pelvis - W/Contrast [facility] 12/29 03:00 Order name: Urine Dipstick--Ancillary (enter results); Complete Time: 06:28 mw2 12/28 23:51 Order name: IV Saline Lock; Complete Time: 00:00 mg2 12/28 23:51 Order name: Labs collected and sent; Complete Time: 00:00 mg2 Administered Medications: 01:40 Drug: NS 0.9% 500 ml Route: IV; Rate: bolus; Site: right antecubital; mg2 02:56 Follow up: Response: No adverse reaction; IV Status: Completed infusion mg2 02:03 Drug: NS 0.9% 1000 ml Route: IV; Rate: 125 ml/hr; Site: left antecubital; mg2 03:04 Drug: Cipro 400 mg Volume: 200 ml; Route: IVPB; Infused Over: 60 mins; Site: right mg2 antecubital; 05:00 Follow up: Response: No adverse reaction; IV Status: Completed infusion; IV Intake: cc3 200ml Disposition: 12/29/18 06:36 Discharged to Home. Impression: Urinary tract infection, site not specified, Abdominal tenderness, Diarrhea, unspecified. - Condition is Stable. - Discharge Instructions: Abdominal Pain, Adult, Food Choices to Help Relieve Diarrhea, Adult, Diarrhea, Adult, Urinary Tract Infection, Adult, Urinary Tract Infection, Adult, [id number], Abdominal Pain, Adult, [id number]-va-[id number], Diarrhea, Adult, [id number]. - Prescriptions for Bentyl 20 mg Oral Tablet - take 1 tablet by ORAL route every 6 hours As needed; 20 tablet. Cipro 250 mg Oral Tablet - take 1 tablet by ORAL route every 12 hours; 14 tablet. - Medication Reconciliation Form, Thank You Letter, Antibiotic Education, Prescription Opioid Use form. - Follow up: Private Physician; When: 2 - 3 days; Reason: Recheck today's complaints, Continuance of care, Re-evaluation by your physician. Follow up: Dominic Magallanes MD; When: 2 - 3 days; Reason: Recheck today's complaints, Continuance of care, Re-evaluation by your physician. - Problem is new. - Symptoms have improved. Signatures: Dispatcher [employer] Rakesh Jj MD MD cha Krenek, Amber RN RN ak1 Quinten Zamora RN RN mg2 Arlen Moy RN RN ls4 Ramandeep Lawler cc3 Corrections: (The following items were deleted from the chart) 08:51 06:36 12/29/2018 06:36 Discharged to Home. Impression: Urinary tract infection, site ls4 not specified; Abdominal tenderness; Diarrhea, unspecified. Condition is Stable. Discharge Instructions: Abdominal Pain, Adult, Food Choices to Help Relieve Diarrhea, Adult, Diarrhea, Adult, Urinary Tract Infection, Adult, Urinary Tract Infection, Adult, Gsut-[id number]-Enel, Abdominal Pain, Adult, Qsrt-[id number], Diarrhea, Adult, [id number]-[id number]. Prescriptions for Bentyl 20 mg Oral Tablet - take 1 tablet by ORAL route every 6 hours As needed; 20 tablet, Cipro 250 mg Oral Tablet - take 1 tablet by ORAL route every 12 hours; 14 tablet. and Forms are Medication Reconciliation Form, Thank You Letter, Antibiotic Education, Prescription Opioid Use. Follow up: Private Physician; When: 2 - 3 days; Reason: Recheck today's complaints, Continuance of care, Re-evaluation by your physician. Follow up: Dominic Magallanes; When: 2 - 3 days; Reason: Recheck today's complaints, Continuance of care, Re-evaluation by your physician. Problem is new. Symptoms have improved. hortencia
[2018-12-29 08:57] VITALS: TEMP 97.6
[2018-12-29 08:59] VITALS: O2SAT 99
[2018-12-29 09:03] VITALS: BP 148/83
--- NOTE | 2018-12-29 15:25 | RAD REPORT ---
EXAM DESCRIPTION: CT Abdomen and Pelvis With Intravenous Contrast CLINICAL HISTORY: The patient is 83 years old and is Male; ABD PAIN COMPARISON: CT of the abdomen and pelvis December 16, 2018. TECHNIQUE: Axial computed tomography images of the abdomen and pelvis with intravenous contrast. Sa gittal and coronal reformatted images were created and reviewed. This CT exam was performed using one or more of the following dose reduction techniques: Automated exposure control, adjustment of the mA and/or kV according to patient size, and/or use of iterative reconstruction technique. FINDINGS: Lung bases: Unremarkable. No mass. No consolidation. Pleural space: Calcified pleural plaque in the lung bases is noted, left greater than right. Mediastinum: A moderate-sized hiatal hernia is present. ABDOMEN: Liver: Unremarkable. No mass. Gallbladder and bile ducts: The gallbladder is well distended. Pancreas: No ductal dilation. No mass. Spleen: Unremarkable. Adrenals: Unremarkable. No mass. Kidneys and ureters: Bilateral exophytic renal cysts are present, the largest on the left measures 8. 3 cm. Lower pole right renal cyst with thin septation is also present measuring approximately 7.0 cm. No follow-up is necessary. The kidneys enhance symmetrically. Stomach and bowel: The stomach is distended with oral contrast. Oral contrast is present throughout s mall bowel which is normal in caliber. Stool is present throughout the colon. No evidence of bowel ob struction. No significant bowel wall thickening. Colonic diverticulosis is noted, without associated inflammatory changes to suggest diverticulitis. PELVIS: Appendix: The appendix is normal in caliber without surrounding inflammation. Bladder: The bladder is moderately distended.Reproductive: Unremarkable as visualized. ABDOMEN and PELVIS: Intraperitoneal spaces: Unremarkable. No free air. No significant fluid collection. Bones/joints: Multilevel degenerative change of the spine is present. Soft tissues: The soft tissues ar normal. Vasculature: Atherosclerosis of the vasculature is present. The vessels are normal in caliber. No abdominal aortic aneurysm. Lymph nodes: Unremarkable. No enlarged lymph nodes. IMPRESSION: Colonic diverticulosis without evidence of diverticulitis. Electronically signed by Nishi Santamaria MD 12/29/2018 6:06 AM RAILROAD OPERATOR Due to temporary technical issues with the PACS/Fluency reporting system, reports are being signed by the in house radiologist as a courtesy to ensure prompt reporting. The interpreting radiologist is f ully responsible for the content of the report.
== END 2018-12-29 08:51 | disposition home or self-care (01) ==
LOC: ER 23:26
DX: N39.0 Urinary tract infection, site not specified (principal); R19.7 Diarrhea, unspecified; I10 Essential (primary) hypertension; I25.2 Old myocardial infarction
CPT/HCPCS: 36415; 74177; 80048; 80076; 81003; 83690; 85025; 87077; 87086; 87088; 87186; 96361; 96365; 96366; 99284; J0744; J7030; Q9967

== ENCOUNTER 2019-04-04 23:01 | Emergency (ER) | payer SELFPAY ==
--- OUTSIDE RECORDS SUMMARY | 2019-04-04 23:04 | XMS REPORT | Clinical Summary ---
:1935 Author Organization [facility] Address [address] [place] [address] Care Team Providers Name Role Phone Unavailable Primary Care Provider Unavailable Allergies No Known Allergies Medications Medication Sig Dispensed Refills Start Date End Date Status sertraline (ZOLOFT) Take 1 tablet (50 30 tablet 0 12/19/2018 12/19/2019 Active 50 MG tablet mg total) by mouth daily. QUEtiapine Take 1 tablet (50 30 tablet 0 12/18/2018 01/17/2019 (SEROQUEL) 50 MG mg total) by tablet mouth nightly for 30 days. Active Problems Problem Noted Date Diverticulosis 12/16/2018 Encounters Date Type Specialty Care Team Description 12/18/2018 Anesthesia Event Gastroenterology Georgi Gleason MD 12/18/2018 Surgery Gastroenterology Courtney Taylor MD 12/16/2018 [facility] Internal Ilene Law Diverticulosis of large intestine with hemorrhage; - Encounter Medicine MD Viv Depression, unspecified depression type; 12/18/2018 Radha, Suicidal ideation MD Geeta Tanner Umar, MD 12/16/2018 Travel after 04/03/2018 Social History Tobacco Use Types Packs/Day Years Used Date Never Smoker Smokeless Tobacco: Never Used Sex Assigned at Date Recorded Not on file Job Start Date Occupation Industry Not on file Not on file Not on file Travel History Travel Start Travel End No recent travel history available. Last Filed Vital Signs Vital Sign Reading Time Taken Blood Pressure 125/68 12/18/2018 10:03 AM [employer] Pulse 62 12/18/2018 10:03 AM [employer] Temperature 36.2 C (97.2 F) 12/18/2018 10:03 AM [employer] Respiratory Rate 18 12/18/2018 10:03 AM [employer] Oxygen Saturation 98% 12/18/2018 10:03 AM [employer] Inhaled Oxygen Concentration - - Weight 100.3 kg (221 lb 3.2 oz) 12/18/2018 7:45 AM [employer] Height 175.3 cm (5' 9") 12/18/2018 7:45 AM [employer] Body Mass Index 32.67 12/18/2018 7:45 AM [employer]CUSSION TE[employer] Plan of Treatment Not on file Procedures Procedure Name Priority Date/Time Associated Comments Diagnosis RHYTHM STRIP - SCAN 01/04/2019 7:40 AM [employer]CUSSION [employer] REPORT OF PROCEDURE - 12/18/2018 8:41 ENDOSCOPY URL AM [employer] COLONOSCOPY 12/18/2018 8:00 Rectal bleed AM [employer] RPR Routine 12/17/2018 4:10 Results for this PM [employer] procedure are in the results section. TSH/FREE T4 IF Routine 12/17/2018 3:38 Results for this INDICATED PM [employer] procedure are in the results section. VITAMIN B12 AND FOLATE Routine 12/17/2018 3:38 Results for this PM [employer] procedure are in the results section. CBC W/PLT COUNT & AUTO Routine 12/17/2018 4:25 Results for this DIFFERENTIAL AM [employer] procedure are in the results section. COMPREHENSIVE Routine 12/17/2018 4:25 Results for this METABOLIC PANEL AM [employer] procedure are in the results section. CBC W/PLT COUNT & AUTO Routine 12/17/2018 4:25 Results for this DIFFERENTIAL AM [employer] procedure are in the results section. URINALYSIS W/ Routine 12/16/2018 6:16 Results for this MICROSCOPIC PM [employer] procedure are in the results section. CBC W/PLT COUNT & AUTO Routine 12/16/2018 6:02 Results for this DIFFERENTIAL AM [employer] procedure are in the results section. HEPATIC FUNCTION PANEL Routine 12/16/2018 6:02 Results for this AM [employer] procedure are in the results section. PROTHROMBIN TIME/INR Routine 12/16/2018 6:02 Results for this AM [employer] procedure are in the results section. BASIC METABOLIC PANEL Routine 12/16/2018 6:02 Results for this (7) AM [employer] procedure are in the results section. CBC W/PLT COUNT & AUTO Routine 12/16/2018 6:02 Results for this DIFFERENTIAL AM [employer] procedure are in the results section. after 04/03/2018 Results RHYTHM STRIP - SCAN (01/04/2019 7:40 AM PERCUSSION TEACHER) Narrative Performed At REPORT OF PROCEDURE - ENDOSCOPY URL (12/18/2018 8:41 AM PERCUSSION TEACHER) Narrative Performed At RPR (12/17/2018 4:10 PM PERCUSSION TEACHER) RPR Nonreactive Nonreactive [facility] Specimen Blood Performing Organization Address City/[facility]/Zipcode Phone Number [address] [address] CENTER Vitamin B12 and Folate (12/17/2018 3:38 PM PERCUSSION TEACHER) Vitamin B12 338 213 - 816 pg/mL [facility] Folate 10.4 >=7.0 ng/mL [facility] Specimen Blood Performing Organization Address City/[facility]/Zipcode Phone Number [address] [address] [place] TSH/Free T4 If Indicated (12/17/2018 3:38 PM [employer]CUSSION TEACHER) TSH 0.54 0.35 - 4.94 uIU/mL [facility] Specimen Blood Performing Organization Address City/[facility] Phone Number [address] [address] [place] CBC with platelet count + automated diff (12/17/2018 4:25 AM PERCUSSION TEACHER)Only the most recent of2 resultswithin the time period is included. WBC 6.3 3.5 - 10.5 K/L [facility] RBC 4.13 (L) 4.63 - 6.08 M/L [facility] Hemoglobin 11.5 (L) 13.7 - 17.5 GM/DL [facility] Hematocrit 35.9 (L) 40.1 - 51.0 % [facility] MCV 86.9 79.0 - 92.2 fL [facility] MCH 27.8 25.7 - 32.2 pg [facility] MCHC 32.0 (L) 32.3 - 36.5 GM/DL [facility] RDW 14.0 11.6 - 14.4 % [facility] Platelets 280 150 - 450 K/CU MM [facility] MPV 9.7 9.4 - 12.4 fL [facility] nRBC 0 0 - 0 /100 WBC [facility] % Neutros 62 % [facility] % Lymphs 22 % [facility] % Monos 7 % [facility] % Eos 7 % [facility] % Baso 1 % [facility] # Neutros 3.91 1.78 - 5.38 K/L [facility] # Lymphs 1.39 1.32 - 3.57 K/L [facility] # Monos 0.45 0.30 - 0.82 K/L [facility] # Eos 0.43 0.04 - 0.54 K/L [facility] # Baso 0.04 0.01 - 0.08 K/L [facility] Immature Granulocytes-Relative 1 0 - 1 % [facility] Specimen Blood Performing Organization Address City/State/Zipcode Phone Number [facility] [address] [place] [address] [phone] CENTER Comprehensive metabolic panel (12/17/2018 4:25 AM PERCUSSION TEACHER) Protein, Total 6.1 6.0 - 8.3 gm/dL [facility] Albumin 3.5 3.5 - 5.0 g/dL [facility] Alkaline Phosphatase 61 40 - 150 U/L [facility] Total Bilirubin 0.4 0.2 - 1.2 mg/dL [facility] Sodium 137 136 - 145 meq/L [facility] Potassium 3.8 3.5 - 5.1 meq/L [facility] Chloride 106 98 - 107 meq/L [facility] CO2 23 22 - 29 meq/L [facility] BUN 12 7 - 21 mg/dL [facility] Creatinine 0.84 0.57 - 1.25 mg/dL [facility] Glucose 81 70 - 105 mg/dL [facility] Calcium 8.8 8.4 - 10.2 mg/dL [facility] AST 14 5 - 34 U/L [facility] ALT 17 6 - 55 U/L [facility] EGFR 87Comment: ESTIMATED GFR mL/min/1.73 sq m [facility] IS NOT ACCURATE [facility] CREATININE CLEARANCE IN PREDICTING GLOMERULAR FILTRATION RATE. ESTIMATED GFR IS NOT APPLICABLE FOR DIALYSIS PATIENTS. Specimen Blood Performing Organization Address City/State/Zipcode Phone Number [facility] [address] [place] [address] CENTER Urinalysis w/ Microscopic (12/16/2018 6:16 PM PERCUSSION TEACHER) Color, UA Light Yellow [facility] Clarity, UA Clear [facility] Specific [place], UA 1.009 1.001 - 1.035 [facility] pH, UA 7.0 5.0 - 8.0 [facility] Protein, UA Negative Negative [facility] Glucose, UA Negative Negative [facility] Ketones, UA Negative Negative [facility] Bilirubin, UA Negative Negative [facility] Blood, UA Negative Negative [facility] Nitrite, UA Negative Negative [facility] Leukocytes, UA Negative Negative [facility] Urobilinogen, UA 0.2 0.2 - 1.0 mg/dL [facility] RBC, UA <1 /HPF [facility] WBC, UA <1 /HPF [facility] Specimen Source Urine, Voided [facility] Specimen Urine Performing Organization Address [facility]ode Phone Number [address] [address] C[place] Prothrombin time/INR (12/16/2018 6:02 AM PERCUSSION TEACHER) Protime 13.0 11.7 - 14.7 seconds [facility] INR 1.0 <=5.9 [facility] Specimen Blood Narrative Performed At RECOMMENDED COUMADIN/WARFARIN INR THERAPY [facility] RANGES STANDARD DOSE: 2.0 - 3.0 Includes: PROPHYLAXIS for venous thrombosis, systemic embolization; TREATMENT for venous thrombosis and/or pulmonary embolus. HIGH RISK: Target INR is 2.5-3.5 for patients with mechanical heart valves. Performing Organization Address [facility] Phone Number [address] [address] [phone] [place] Hepatic function panel (12/16/2018 6:02 AM PERCUSSION TEACHER) Protein, Total 6.2 6.0 - 8.3 gm/dL [facility] Albumin 3.6 3.5 - 5.0 g/dL [facility] Total Bilirubin 0.2 0.2 - 1.2 mg/dL [facility] Bilirubin, Direct 0.1 0.1 - 0.5 mg/dL [facility] Alkaline Phosphatase 63 40 - 150 U/L [facility] AST 19 5 - 34 U/L [facility] ALT 24 6 - 55 U/L [facility] Specimen Blood Performing Organization Address City/[facility] Phone Number [facility] [address] [place] [address] [place] Basic metabolic panel (12/16/2018 6:02 AM PERCUSSION TEACHER) Sodium 138 136 - 145 meq/L [facility] Potassium 4.3 3.5 - 5.1 meq/L [facility] Chloride 106 98 - 107 meq/L [facility] CO2 25 22 - 29 meq/L [facility] BUN 21 7 - 21 mg/dL [facility] Creatinine 0.81 0.57 - 1.25 mg/dL [facility] Glucose 93 70 - 105 mg/dL [facility] Calcium 9.0 8.4 - 10.2 mg/dL [facility] EGFR 91Comment: ESTIMATED GFR IS mL/min/1.73 sq m [facility] NOT ACCURATE [facility] CENTER CLEARANCE IN PREDICTING GLOMERULAR FILTRATION RATE. ESTIMATED GFR IS NOT APPLICABLE FOR DIALYSIS PATIENTS. Specimen Blood Performing Organization Address City/State/Zipcode Phone Number [facility] [address] [place] [address] [phone] [place] after 04/03/2018 Advance Directives For more information, please contact:[address] [phone] Code Status Date Activated Date Inactivated Comments Full Code 12/16/2018 5:09 AM This code status was determined by: Patient
--- OUTSIDE RECORDS SUMMARY | 2019-04-04 23:04 | XMS REPORT ---
:1935 [facility] Marino Dominguez [address] [place] [id number] Care Team Providers Name Role Phone BARON JORDAN Unavailable Unavailable Problems This patient has no known problems. Allergies, Adverse Reactions, Alerts This patient has no known allergies or adverse reactions. Medications This patient has no known medications. Results Test Description Test Time Test Comments Text Results Atomic Results Result Comments RPR 2018-12-18 16:24:00 Test Item Value Reference Range Comments RPR SCREEN (BEAKER) (test vkjg=360) Nonreactive Nonreactive TSH/FREE T4 IF [id number] 16:46:00 Test Item Value Reference Range Comments THYROID STIMULATING HORMONE (BEAKER) (test 0.54 uIU/mL 0.35-4.94 xaia=168) VITAMIN B12 AND [id number] 16:46:00 Test Item Value Reference Range Comments VITAMIN B12 (BEAKER) (test muvc=945) 338 pg/mL 213-816 FOLATE (BEAKER) (test ouum=366) 10.4 ng/mL >=7.0 COMPREHENSIVE METABOLIC [id number] 06:22:00 Test Item Value Reference Range Comments TOTAL PROTEIN (BEAKER) 6.1 gm/dL 6.0-8.3 (test wmxe=544) ALBUMIN (BEAKER) (test 3.5 g/dL 3.5-5.0 oqix=6766) ALKALINE PHOSPHATASE 61 U/L 40-150 (BEAKER) (test gzzi=294) BILIRUBIN TOTAL (BEAKER) 0.4 mg/dL 0.2-1.2 (test veyw=031) SODIUM (BEAKER) (test 137 meq/L 136-145 hcew=805) POTASSIUM (BEAKER) (test 3.8 meq/L 3.5-5.1 zuhq=348) CHLORIDE (BEAKER) (test 106 meq/L 98-107 bket=780) CO2 (BEAKER) (test 23 meq/L 22-29 iqje=469) BLOOD UREA NITROGEN 12 mg/dL 7-21 (BEAKER) (test hyka=703) CREATININE (BEAKER) (test 0.84 mg/dL 0.57-1.25 kgnx=453) GLUCOSE RANDOM (BEAKER) 81 mg/dL 70-105 (test mgql=415) CALCIUM (BEAKER) (test 8.8 mg/dL 8.4-10.2 ehvr=758) AST (SGOT) (BEAKER) (test 14 U/L 5-34 uedc=387) ALT (SGPT) (BEAKER) (test 17 U/L 6-55 dsci=956) EGFR (BEAKER) (test 87 mL/min/1.73 sq m ESTIMATED GFR IS NOT hfcg=7149) ACCURATE CREATININE CLEARANCE IN PREDICTING GLOMERULAR FILTRATION RATE. ESTIMATED GFR IS NOT APPLICABLE FOR DIALYSIS PATIENTS. CBC W/PLT COUNT & AUTO [id number] 05:34:00 Test Item Value Reference Range Comments WHITE BLOOD CELL COUNT (BEAKER) (test yyqe=735) 6.3 K/ L 3.5-10.5 RED BLOOD CELL COUNT (BEAKER) (test ldhy=292) 4.13 M/ L 4.63-6.08 HEMOGLOBIN (BEAKER) (test dfcj=333) 11.5 GM/DL 13.7-17.5 HEMATOCRIT (BEAKER) (test tkwl=973) 35.9 % 40.1-51.0 MEAN CORPUSCULAR VOLUME (BEAKER) (test bgwa=988) 86.9 fL 79.0-92.2 MEAN CORPUSCULAR HEMOGLOBIN (BEAKER) (test 27.8 pg 25.7-32.2 wfzp=577) MEAN CORPUSCULAR HEMOGLOBIN CONC (BEAKER) (test 32.0 GM/DL 32.3-36.5 ynrm=562) RED CELL DISTRIBUTION WIDTH (BEAKER) (test 14.0 % 11.6-14.4 zwaz=783) PLATELET COUNT (BEAKER) (test yaay=691) 280 K/CU MM 150-450 MEAN PLATELET VOLUME (BEAKER) (test cqxd=838) 9.7 fL 9.4-12.4 NUCLEATED RED BLOOD CELLS (BEAKER) (test 0 /100 WBC 0-0 dyym=648) NEUTROPHILS RELATIVE PERCENT (BEAKER) (test 62 % xnlw=579) LYMPHOCYTES RELATIVE PERCENT (BEAKER) (test 22 % tpwm=516) MONOCYTES RELATIVE PERCENT (BEAKER) (test 7 % zbqb=600) EOSINOPHILS RELATIVE PERCENT (BEAKER) (test 7 % ayec=865) BASOPHILS RELATIVE PERCENT (BEAKER) (test 1 % yews=745) NEUTROPHILS ABSOLUTE COUNT (BEAKER) (test 3.91 K/ L 1.78-5.38 opvx=750) LYMPHOCYTES ABSOLUTE COUNT (BEAKER) (test 1.39 K/ L 1.32-3.57 ywpx=203) MONOCYTES ABSOLUTE COUNT (BEAKER) (test 0.45 K/ L 0.30-0.82 iulq=841) EOSINOPHILS ABSOLUTE COUNT (BEAKER) (test 0.43 K/ L 0.04-0.54 vbjj=482) BASOPHILS ABSOLUTE COUNT (BEAKER) (test 0.04 K/ L 0.01-0.08 foik=082) IMMATURE GRANULOCYTES-RELATIVE PERCENT (BEAKER) 1 % 0-1 (test lyyh=5129) URINALYSIS W/ [id number] 19:09:00 Test Item Value Reference Range Comments COLOR (BEAKER) (test layc=674) Light Yellow CLARITY (BEAKER) (test biqu=106) Clear SPECIFIC GRAVITY UA (BEAKER) (test lslr=485) 1.009 1.001-1.035 PH UA (BEAKER) (test jipn=435) 7.0 5.0-8.0 PROTEIN UA (BEAKER) (test dsxu=499) Negative Negative GLUCOSE UA (BEAKER) (test hwbu=701) Negative Negative KETONES UA (BEAKER) (test mcyx=230) Negative Negative BILIRUBIN UA (BEAKER) (test xott=692) Negative Negative BLOOD UA (BEAKER) (test dhbl=087) Negative Negative NITRITE UA (BEAKER) (test kfpv=048) Negative Negative LEUKOCYTE ESTERASE UA (BEAKER) (test exsq=139) Negative Negative UROBILINOGEN UA (BEAKER) (test cbyu=678) 0.2 mg/dL 0.2-1.0 RBC UA (BEAKER) (test krlk=934) < /HPF WBC UA (BEAKER) (test ujxq=777) < /HPF SOURCE(BEAKER) (test elwr=7283) Urine, Voided PROTHROMBIN [id number] 06:35:00 Test Item Value Reference Range Comments PROTIME (BEAKER) (test aaik=605) 13.0 seconds 11.7-14.7 INR (BEAKER) (test lyiv=295) 1.0 <=5.9 RECOMMENDED COUMADIN/WARFARIN INR THERAPY RANGESSTANDARD DOSE: 2.0 - 3.0 Includes: PROPHYLAXIS forvenous thrombosis, systemic embolization; TREATMENT for venous thrombosis and/or pulmonary embolus.HIGH RISK: Target INR is 2.5-3.5 for patients with mechanical heart valves.HEPATIC FUNCTION [id number] 06:32 :00 Test Item Value Reference Range Comments TOTAL PROTEIN (BEAKER) (test xjcv=490) 6.2 gm/dL 6.0-8.3 ALBUMIN (BEAKER) (test dwdn=9086) 3.6 g/dL 3.5-5.0 BILIRUBIN TOTAL (BEAKER) (test wkaf=823) 0.2 mg/dL 0.2-1.2 BILIRUBIN DIRECT (BEAKER) (test dfln=427) 0.1 mg/dL 0.1-0.5 ALKALINE PHOSPHATASE (BEAKER) (test zbyg=246) 63 U/L 40-150 AST (SGOT) (BEAKER) (test qjbf=571) 19 U/L 5-34 ALT (SGPT) (BEAKER) (test hmzp=329) 24 U/L 6-55 BASIC METABOLIC [id number] 06:32:00 Test Item Value Reference Range Comments SODIUM (BEAKER) (test 138 meq/L 136-145 owqi=939) POTASSIUM (BEAKER) (test 4.3 meq/L 3.5-5.1 iqih=334) CHLORIDE (BEAKER) (test 106 meq/L 98-107 cjce=656) CO2 (BEAKER) (test 25 meq/L 22-29 tpjl=429) BLOOD UREA NITROGEN 21 mg/dL 7-21 (BEAKER) (test lseu=442) CREATININE (BEAKER) (test 0.81 mg/dL 0.57-1.25 whdd=612) GLUCOSE RANDOM (BEAKER) 93 mg/dL 70-105 (test gcqy=390) CALCIUM (BEAKER) (test 9.0 mg/dL 8.4-10.2 pqpf=635) EGFR (BEAKER) (test 91 mL/min/1.73 sq m ESTIMATED GFR IS NOT ptoo=0921) ACCURATE CREATININE CLEARANCE IN PREDICTING GLOMERULAR FILTRATION RATE. ESTIMATED GFR IS NOT APPLICABLE FOR DIALYSIS PATIENTS. CBC W/PLT COUNT & AUTO [id number] 06:14:00 Test Item Value Reference Range Comments WHITE BLOOD CELL COUNT (BEAKER) (test wqwm=119) 6.0 K/ L 3.5-10.5 RED BLOOD CELL COUNT (BEAKER) (test gjjp=021) 4.19 M/ L 4.63-6.08 HEMOGLOBIN (BEAKER) (test fxsv=208) 11.6 GM/DL 13.7-17.5 HEMATOCRIT (BEAKER) (test ulrl=102) 36.4 % 40.1-51.0 MEAN CORPUSCULAR VOLUME (BEAKER) (test ycak=442) 86.9 fL 79.0-92.2 MEAN CORPUSCULAR HEMOGLOBIN (BEAKER) (test 27.7 pg 25.7-32.2 knno=628) MEAN CORPUSCULAR HEMOGLOBIN CONC (BEAKER) (test 31.9 GM/DL 32.3-36.5 oxpt=128) RED CELL DISTRIBUTION WIDTH (BEAKER) (test 13.8 % 11.6-14.4 uguu=425) PLATELET COUNT (BEAKER) (test bjhl=674) 263 K/CU MM 150-450 MEAN PLATELET VOLUME (BEAKER) (test ppgg=771) 9.2 fL 9.4-12.4 NUCLEATED RED BLOOD CELLS (BEAKER) (test 0 /100 WBC 0-0 piur=980) NEUTROPHILS RELATIVE PERCENT (BEAKER) (test 60 % iekh=776) LYMPHOCYTES RELATIVE PERCENT (BEAKER) (test 29 % zkts=871) MONOCYTES RELATIVE PERCENT (BEAKER) (test 7 % uwjw=627) EOSINOPHILS RELATIVE PERCENT (BEAKER) (test 4 % pabv=032) BASOPHILS RELATIVE PERCENT (BEAKER) (test 1 % wzov=235) NEUTROPHILS ABSOLUTE COUNT (BEAKER) (test 3.58 K/ L 1.78-5.38 urga=790) LYMPHOCYTES ABSOLUTE COUNT (BEAKER) (test 1.71 K/ L 1.32-3.57 syts=405) MONOCYTES ABSOLUTE COUNT (BEAKER) (test 0.39 K/ L 0.30-0.82 hegn=404) EOSINOPHILS ABSOLUTE COUNT (BEAKER) (test 0.22 K/ L 0.04-0.54 ddhk=802) BASOPHILS ABSOLUTE COUNT (BEAKER) (test 0.03 K/ L 0.01-0.08 eqxr=696) IMMATURE GRANULOCYTES-RELATIVE PERCENT (BEAKER) 1 % 0-1 (test gdxc=1348) MRI Spine Lumbar w/o [id number] 13:46:08Patient: JANA DEUTSCH Date/Time09/11/2018 12:21 CDTReason for ExamMyelopathy/progressive motor dysfunctionReportMRI OF THE LUMBAR SPINE WITHOUT CONTRASTLOCATION: [id number]: Lumbar spine radiograph INDICATION: Myelopathy/progressive motor dysfunctionTechnique:Sagittal T1, sagittal T2, sagittal STIR, axial T2, coronal T2, and axial proton density weighted images of the lumbar spine were obtained without contrast. Motion artifacts obscure some details.DISCUSSION:Number of non-rib bearing lumbar vertebral bodies: 5.Alignment: Normal lordosis. No significant scoliosis.Vertebrae: No definite evidence for fracture, or neoplasm.Conus medullaris: Normal, ends at approximately T12.Cauda equina: No masses or arachnoiditis.Posterior paraspinal muscles: Well preserved. No signal abnormalities.Soft tissues: The partially visualizedbladder is distended. Large bilateral T2 hyperintense renal cysts are present.Moderate multilevel disc degeneration is present. There are nonspecific mild inflammatory endplate changes at L2-L3 and, toa lesser extent, at L3-L4.T12-L1: Disc bulge without significant canal or foraminal stenosis.L1-L2: Mild left foraminal stenosis due to disc bulge and facet arthrosis. No significant canal or right foraminal stenosis.L2-L3: Mild canal stenosis due to disc bulge and ligamentum flavum thickening. Mild left foraminal stenosis due to disc bulge and facet arthrosis. No significant right foraminal stenosis.L3-L4: Mild canal stenosis due to disc bulge and ligamentum flavum thickening. Mild bilateral foraminal stenoses due to disc bulge and facet arthrosis.L4-L5: Moderate bilateral foraminal stenoses due to disc bulge and facet arthrosis. No significant canal stenosis.L5-S1: Moderate right and mild to moderate left foraminal stenoses due to disc bulge and facet arthrosis. No significant canal stenosis.IMPRESSION:1. Moderate multilevel disc degeneration. Nonspecific mild inflammatory endplate changes at L2-L3 and, to a lesser extent, at L3-L4.2. Mild degenerative canal stenoses at L2-L3 and L3-L4.Exam Date/Time09/11/2018 12:21 CDTReport3. Multilevel degenerative foraminal stenoses - moderate bilaterally at L4-L5; moderate right and mild to moderate left at L5-S1. Final Dictated by: MD Owens Alfred EDictramone DT/TM: 09/11/2018 1:35 pmSigned by: MD Owens Alfred ESigned (Electronic Signature): 09/11/2018 1:46 pmMRI Brain w/o [id number] 23:19:03Patient: JANA DEUTSCH Date/Time09/10/2018 20:41 CDTReason for ExamDizzinessReportEXAM: MRI BRAIN WITHOUT CONTRASTINDICATION: DizzinessCOMPARISON: CT head dated September 09, 2018TECHNIQUE: Multiplanar, multisequence MR imaging of the brain wasobtained without administration of intravenous contrast. IV contrast : None.FINDINGS:No restricted diffusion to suggest acute ischemia.There are areas of hyperintense T2 changes within the supratentorial white matter consistent with chronic microvascular ischemic changes. There is prominence ofthe ventricles and sulci consistent with diffuse cerebral volume loss. The ventricles and sulci are normal in size and shape with no midline shift or mass effect. The basal cisterns are patent. The posterior fossa and fourth ventricle are normal. No intracranial hemorrhage.Intracranial flow voids are normal.There is diffuse mucosal thickening throughout the paranasal sinuses. The mastoid air cells are clear. The skull base is intact. No calvarial lesions. The orbits and globes are unremarkable.IMPRESSION:1. No acute intracranial abnormality. No acute infarct.2. Chronic microvascular ischemic changes and diffuse cerebral volume loss.LOCATION: R16 Final Dictated by: MD Gentile Melanie CDictated DT/TM: 09/10/2018 11:17 pmSigned by: MD Gentile Melanie CSigned ( Electronic Signature): 09/10/2018 11:19 pmXR Chest 1 View [id number] 21: 19:22Patient: JANA DEUTSCH Date/Time09/09/2018 21:02 CDTReason for ExamChest painReportPortable chest one view.HISTORY: Chest painLocation R 16COMMENT: No comparison. . The lungs are clear and normally expanded. No pleural effusion. The cardiac silhouette is unremarkable. Subpleural density along the left mid chest wall. Possible deformity of the left mid ribs secondary to old healed fractures. Thoracic spondylosis.IMPRESSION: Lungs are clear.Small subpleural density along left lateral chest wall may be secondary to old rib fracture.. * Final Dictated by: MD Arguello Daniel RDictated DT/TM: 09/09/2018 9: 16 pmSigned by: MD Arguello Daniel RSfay (Electronic Signature): 09/09/2018 9:19 pmCT Brain/Head w/o [id number] 21:02:57Patient: JANA DEUTSCH Date/Time09/09/2018 20:42 CDTReason for ExamDizzinessReportCT Head Without Contrast.History: DizzinessLocation: R 16.Study was performed within 24 hours of presentation.Comparison: none.Technique: Axial images were obtained. Sagittal and coronal reconstruction. Total exam DLP 714.4Findings:Ventricles and sulci are within normal limits for age. No hemorrhage, mass effect, or abnormal extra- axial fluid collection. No evidence of acute infarct. Brainstem and posterior fossa are unremarkable.Cranial vault is unremarkable.Orbits are unremarkable. No confluent or mastoid disease.Opacification of the right sphenoid sinus. Mucosal thickening and opacification of multiple bilateral ethmoid air cells. Deviation of the nasal septum to the right.IMPRESSION:1. No evidence of acute intracranial pathology.2. Severe chronic sinusitis, possibly related to dizziness. Final Dictated by: MD Arguello Daniel RDictated DT/TM: 09/09/2018 9:00 pmSigned by: MD Arguello Daniel RSigned (Electronic Signature) : 09/09/2018 9:02 pmXR Spine Lumbosacral 4+ [id number] 12:00:52Patient: JANA DEUTSCH Date/ Time09/09/2018 11:47 CDTReason for ExamFallReportXR Spine Lumbosacral 4+ ViewsCLINICAL INFORMATION: FallCOMPARISONS: None available.FINDINGS:No acute fracture or malalignment is identified. The vertebral body heights are maintained. Multilevel degenerative changes are present in the form of endplate sclerosis, mild disc space narrowing, and osteophyte formation. The sacroiliac joints are unremarkable.IMPRESSION:1. No acute fracture is identified.2. Moderate multilevel degenerative disc disease.Location: R16 Final Dictated by: MD Smith Adam FDictated DT/TM: 09/09/2018 11:59 amSigned by : MD Smith Adam FSigned (Electronic Signature): 09/09/2018 12:00 pmXR Femur [id number] 11:59:24Patient: JANA DEUTSCH Date/Time09/09/2018 11:47 CDTReason for ExamInjuryReportXR Femur LeftCLINICAL INFORMATION: InjuryCOMPARISONS: None available.FINDINGS:AP and lateral images of the left femur were submitted.The bones are osteopenic. An acute fracture is not identified. Mild hip joint space narrowing is seen. Advanced osteoarthritis is noted in the knee. A small knee joint effusion is present.IMPRESSION:1. No acute fracture is identified.2. Advanced osteoarthritis of the left knee with small joint effusion.Location: R16 Final Dictated by: MD Smith Adam FDictated DT/TM: 09/09/2018 11:57 amSigned by: MD Smith Adam FSigned ( Electronic Signature): 09/09/2018 11:59 amXR Knee 3 Views [id number] 11:57 :19Patient: JANA DEUTSCH Date/Time09/09/2018 11:47 CDTReason for ExamFallReportXR Knee 3 Views RightHISTORY: FallCOMPARISON: NoneFINDINGS:AP, oblique, and crosstable lateral images of the right knee were submitted.No acute fracture is identified. Severe tricompartmental joint space narrowing is noted. Large osteophytes projecting from the superior pole of the patella. Subchondral sclerosis and small marginal osteophytes are seen in the medial and lateral compartments. A large suprapatellar joint effusion is present.IMPRESSION:1. An acute fracture is not identified.2. Large knee joint effusion.3. Advanced tricompartmental osteoarthritis.Location: R16 Final Dictated by: MD Smith Adam FDictated DT/TM: 09/09/2018 11:55 amSigned by: MD Smith Adam FSigned (Electronic Signature): 09/09/2018 11:57 amCT Brain/Head w/o [id number] 17:56:57Patient: JANA DEUTSCH Date/Time09/04/2018 16:55 CDTReason for ExamDizzinessReportEXAMINATION: CT Brain/Head w/o Contrast.LOCATION: R16.HISTORY : Dizziness.COMPARISON: None.TECHNIQUE: Routine CT of the head was performed without intravenous contrast as per protocol.FINDINGS:Brain Parenchyma: No hemorrhage or infarction. No mass effect or midline shift. There are low attenuation regions within the periventricular white matter, this is nonspecific , most commonly associated with microvascular ischemic changes. Atherosclerotic vascular calcifications.Extra Axial Spaces: Unremarkable.Ventricular System: Prominence of ventricular system, compatible with the degree of volume loss.Osseous Structures: Unremarkable.Visualized Paranasal Sinuses: Mucosal thickening involving bilateral ethmoid and right sphenoid sinus.IMPRESSION:No acute intracranial abnormality nor hemorrhage.Consider MR imaging if clinically warranted. Final Dictated by: MD Sandhu Ankitkumar NDictated DT/TM : 09/04/2018 5:06 pmSigned by: MD Sandhu Ankitkumar NSigned (Electronic Signature): 09/04/2018 5:56 pm
[2019-04-05] MEDS ORDERED: ALBUTEROL 2.5 MG/3 ML NEB SOL ONE (00:36)
[2019-04-05] MEDS ORDERED: IPRATROPIUM BROM 0.5MG/2.5ML ONE (00:36)
--- NOTE | 2019-04-05 00:48 | EDPHYS ---
Physician Documentation [facility] Name: Jose Thomas Age: 83 yrs Sex: Male : 1935 Arrival Date: 04/04/2019 Time: 23:03 Bed 13 Private MD: ED Physician Tanner Evans HPI: 04/05 04:15 This 83 yrs old Other Male presents to ER via EMS with complaints of Knee Pain, Cough. tw4 04:15 The patient or guardian reports cough, with no sputum. Onset: The symptoms/episode tw4 began/occurred 1 week(s) ago. Severity of symptoms: At their worst the symptoms were moderate, in the emergency department the symptoms are unchanged. Modifying factors: The symptoms are alleviated by nothing, the symptoms are aggravated by nothing. The patient has not experienced similar symptoms in the past. Historical: - Allergies: 04/04 22:54 No Known Allergies; jb4 - Home Meds: 22:54 None [Active]; jb4 - PMHx: 22:54 Arthritis; Bipolar disorder; CVA; Depression; diptheria; Headaches; Hypertension; jb4 Myocardial infarction; - PSHx: 22:54 None; jb4 - Immunization history:: Adult Immunizations unknown. - Social history:: Smoking status: Patient/guardian denies using tobacco, Patient/guardian denies using alcohol. - Ebola Screening: : No symptoms or risks identified at this time. ROS: 04/05 04:15 Constitutional: Negative for fever, chills, and weight loss, Eyes: Negative for injury, tw4 pain, redness, and discharge, Cardiovascular: Negative for chest pain, palpitations, and edema, Abdomen/GI: Negative for abdominal pain, nausea, vomiting, diarrhea, and constipation, Back: Negative for injury and pain, Skin: Negative for injury, rash, and discoloration, Neuro: Negative for headache, weakness, numbness, tingling, and seizure. Respiratory: Positive for cough, Negative for dyspnea on exertion, hemoptysis, orthopnea, pleurisy, shortness of breath, sputum production. MS/extremity: Positive for decreased range of motion, pain, tenderness, Negative for injury or acute deformity. Exam: 04:15 Constitutional: This is a well developed, well nourished patient who is awake, alert, tw4 and in no acute distress. Head/Face: Normocephalic, atraumatic. Chest/axilla: Normal chest wall appearance and motion. Nontender with no deformity. No lesions are appreciated. Cardiovascular: Regular rate and rhythm with a normal S1 and S2. No gallops, murmurs, or rubs. Normal PMI, no JVD. No pulse deficits. 04:15 Back: No spinal tenderness. No costovertebral tenderness. Full range of motion. Skin: Warm, dry with normal turgor. Normal color with no rashes, no lesions, and no evidence of cellulitis. 04:15 Respiratory: the patient does not display signs of respiratory distress, Respirations: normal, Breath sounds: wheezing: that is mild, is heard diffusely. 04:15 Musculoskeletal/extremity: Extremities: noted in the lateral aspect of right knee and right knee: decreased ROM, pain, swelling, tenderness, There is no evidence of abrasion, bite, ecchymosis, erythema, laceration, puncture, rash. Vital Signs: 04/04 22:54 BP 162 / 84; Pulse 87; Resp 28; Temp 98.0(O); Pulse Ox 96% on R/A; Weight 102.06 kg jb4 (R); Height 5 ft. 10 in. (177.80 cm) (R); Pain 10/10; 04/05 00:00 BP 134 / 79; Pulse 79; Resp 24; Pulse Ox 97% on R/A; jb4 00:50 BP 136 / 66; Pulse 83; Resp 20; Pulse Ox 100% on R/A; jb4 01:30 BP 138 / 64; Pulse 89; Resp 20; Pulse Ox 96% on R/A; jb4 08:30 BP 155 / 77; Pulse 80; Resp 18 S; Temp 99.0(TE); Pulse Ox 98% on R/A; Pain 0/10; aa5 09:45 BP 150 / 75; Pulse 78; Resp 18 S; Temp 98.9(TE); Pulse Ox 99% on R/A; Pain 0/10; aa5 04/04 22:54 Body Mass Index 32.28 (102.06 kg, 177.80 cm) jb4 MDM: 04/04 23:18 Patient medically screened. tw4 04/05 04:15 Differential Diagnosis: Obstructed Airway Bronchitis. Data reviewed: vital signs, tw4 nurses notes. 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 Test interpretation: by ED physician or midlevel provider: ECG. Counseling: I had a detailed discussion with the patient and/or guardian regarding: the historical points, exam findings, and any diagnostic results supporting the discharge/admit diagnosis. Special discussion: I discussed with the patient/guardian in detail that at this point there is no indication for admission to the hospital. It is understood, however, that if the symptoms persist or worsen the patient needs to return immediately for re-evaluation. 04/05 00:21 Order name: CXR XRAY 4 04/05 00:22 Order name: Knee Right 2 View XRAY 4 04/05 08:06 Order name: Diet Heart Healthy; Complete Time: :06 aa5 Administered Medications: 00:28 Drug: DuoNeb (3:1) (2.5 mg - 0.5 mg) 3 ml Route: Nebulizer; 4 00:50 Follow up: Response: No adverse reaction; Marked relief of symptoms 4 00:40 Drug: Tylenol 1000 mg Route: PO; 4 01:10 Follow up: Response: No adverse reaction; Pain is decreased 4 Disposition: 04/05/19 00:47 Discharged to Home. Impression: Bronchitis, not specified as acute or chronic. - Condition is Stable. - Discharge Instructions: Acute Bronchitis, Adult, Chronic Pain, Cough, Adult. - Prescriptions for Tessalon Perles 100 mg Oral Capsule - take 1 capsule by ORAL route every 8 hours As needed; 15 capsule. Albuterol Sulfate 90 mcg/actuation - inhale 1-2 puff by INHALATION route every 4-6 hours; 1 Inhaler. Guaifenesin AC 10- 100 mg/5 mL Oral Liquid - take 10 milliliter by ORAL route every 4 hours As needed; 240 milliliter. Tramadol 50 mg Oral Tablet - take 1 tablet by ORAL route every 8 hours as needed; 12 tablet. - Medication Reconciliation Form, Thank You Letter, Antibiotic Education, Prescription Opioid Use form. - Follow up: Private Physician; When: Upon discharge from the Emergency Department; Reason: If symptoms return, Recheck today's complaints, Continuance of care. - Problem is new. - Symptoms have improved. Signatures: Dispatcher [employer] EDSiri Murphy RN RN aa5 George Cooper RN RN jb4 Tanner Evans MD MD tw4 Corrections: (The following items were deleted from the chart) 09:48 00:47 04/05/2019 00:47 Discharged to Home. Impression: Bronchitis, not specified as aa5 acute or chronic. Condition is Stable. Forms are Medication Reconciliation Form, Thank You Letter, Antibiotic Education, Prescription Opioid Use. Follow up: Private Physician; When: Upon discharge from the Emergency Department; Reason: If symptoms return, Recheck today's complaints, Continuance of care. Problem is new. Symptoms have improved. tw4
--- NOTE | 2019-04-05 00:48 | ER ---
Nurse's Notes [facility] Name: Jose Thomas Age: 83 yrs Sex: Male : 1935 Arrival Date: 04/04/2019 Time: 23:03 Bed 13 Private MD: Diagnosis: Bronchitis, not specified as acute or chronic Presentation: 04/04 22:54 Presenting complaint: Patient states: I have a cough that has been going on for a good jb4 2 weeks and my right knee is hurting but has been for 2 years. EMS states: he is complaining of right knee pain and a cough that has been going on for 4 weeks. 22:54 Transition of care: patient was not received from another setting of care. Onset of jb4 symptoms was March 21, 2019. Risk Assessment: Do you want to hurt yourself or someone else? Patient reports no desire to harm self or others. Initial Sepsis Screen: Does the patient meet any 2 criteria? RR > 20 per min. Yes Does the patient have a suspected source of infection? Yes: Productive cough/pneumonia. Care prior to arrival: None. 22:54 Method Of Arrival: EMS: [facility] jb4 22:54 Acuity: HAO 3 jb4 Historical: - Allergies: 22:54 No Known Allergies; jb4 - Home Meds: 22:54 None [Active]; jb4 - PMHx: 22:54 Arthritis; Bipolar disorder; CVA; Depression; diptheria; Headaches; Hypertension; jb4 Myocardial infarction; - PSHx: 22:54 None; jb4 - Immunization history:: Adult Immunizations unknown. - Social history:: Smoking status: Patient/guardian denies using tobacco, Patient/guardian denies using alcohol. - Ebola Screening: : No symptoms or risks identified at this time. Screenin:54 Abuse screen: Denies threats or abuse. Nutritional screening: No deficits noted. jb4 Tuberculosis screening: Possible symptoms: cough for more than 2 weeks. Fall Risk Fall in past 12 months (25 points). Gait- Impaired (20 pts.). Mental Status- Oriented to own ability (0 pts). Total Mario Fall Scale indicates High Risk Score (45 or more points). Fall prevention measures have been instituted. Side Rails Up X 2 Placed Close to Nursing Station Frequent Obs/Assessments Occuring As available patient and family educated on Fall Prevention Program and Strategies. Assessment: 22:54 General: Appears in no apparent distress. comfortable, Behavior is calm, cooperative, [facility] appropriate for age. Pain: Complains of pain in right knee Pain does not radiate. Pain currently is 10 out of 10 on a pain scale. Pain began 2 years ago Is continuous. Neuro: Level of Consciousness is awake, alert, obeys commands, Oriented to person, place, time, situation. Cardiovascular: Patient's skin is warm and dry. Respiratory: Reports cough that is productive, Airway is patent Respiratory effort is even, unlabored, Respiratory pattern is symmetrical, tachypnea Breath sounds are diminished bilaterally. GI: No signs and/or symptoms were reported involving the gastrointestinal system. : No signs and/or symptoms were reported regarding the genitourinary system. EENT: No signs and/or symptoms were reported regarding the EENT system. Derm: Skin is intact, Skin is pink, warm \\T\\ dry. Musculoskeletal: Circulation, motion, and sensation intact. 04/05 00:00 Reassessment: Patient appears in no apparent distress at this time. Patient and/or [facility] family updated on plan of care and expected duration. Pain level reassessed. Patient is alert, oriented x 3, equal unlabored respirations, skin warm/dry/pink. 00:50 Reassessment: Patient appears in no apparent distress at this time. Patient and/or [facility] family updated on plan of care and expected duration. Pain level reassessed. Patient is alert, oriented x 3, equal unlabored respirations, skin warm/dry/pink. Respiratory: Breath sounds with wheezes bilaterally. 01:09 Reassessment: PT held in ED due to impaired ability to walk, and no way to return to [address] site. 01:15 Reassessment: Given juice, sand which, crackers. warm blanket and pillow. [facility] 01:52 Reassessment: Patient appears in no apparent distress at this time. Patient and/or jb family updated on plan of care and expected duration. Pain level reassessed. Patient is alert, oriented x 3, equal unlabored respirations, skin warm/dry/pink. 04:57 Reassessment: Patient appears in no apparent distress at this time. Pt is resting with [facility] eyes closed, respirations are even and unlabored. no s/s of distress noted. 07:00 Reassessment: Pt's care will be continued by me. Pt resting in bed with eyes closed, aa5 respirations even and unlabored, skin is pink/warm/dry.. 07:30 Reassessment: Patient is alert, oriented x 3, equal unlabored respirations, skin aa5 warm/dry/pink. Pt sitting up in bed, pt notified of discharge home orders, pt verbalized understanding. Pt states "I stay in the [facility] in [place] and you can call Jennifer up there and ask her to pick me up". . 07:45 Reassessment: Called the [facility] in [place] per pt's request, staff states "the aa5 medical operations supervisor comes in at 9 am and I will have to wait until then to see if someone can go pick him up". Pt notified . 08:34 Reassessment: Pt resting in bed with eyes closed, respirations even and unlabored, skin aa5 is pink/warm/dry. 09:10 Reassessment: Patient is alert, oriented x 3, equal unlabored respirations, skin aa5 warm/dry/pink. Pt eating breakfast, pt tolerating well. . 09:45 Reassessment: Patient is alert, oriented x 3, equal unlabored respirations, skin aa5 warm/dry/pink. Multiple attempts to contact the [facility] have been made unsuccessfully. Cab was called for pt, pt is okay with POC to ride cab back to [facility]. . Vital Signs: 04/04 22:54 BP 162 / 84; Pulse 87; Resp 28; Temp 98.0(O); Pulse Ox 96% on R/A; Weight 102.06 kg jb4 (R); Height 5 ft. 10 in. (177.80 cm) (R); Pain 10/10; 04/05 00:00 BP 134 / 79; Pulse 79; Resp 24; Pulse Ox 97% on R/A; jb4 00:50 BP 136 / 66; Pulse 83; Resp 20; Pulse Ox 100% on R/A; jb4 01:30 BP 138 / 64; Pulse 89; Resp 20; Pulse Ox 96% on R/A; jb4 08:30 BP 155 / 77; Pulse 80; Resp 18 S; Temp 99.0(TE); Pulse Ox 98% on R/A; Pain 0/10; aa5 09:45 BP 150 / 75; Pulse 78; Resp 18 S; Temp 98.9(TE); Pulse Ox 99% on R/A; Pain 0/10; aa5 04/04 22:54 Body Mass Index 32.28 (102.06 kg, 177.80 cm) jb4 ED Course: 04/04 22:54 Arm band placed on left wrist. jb4 22:54 Patient has correct armband on for positive identification. Placed in gown. Bed in low jb4 position. Call light in reach. Side rails up X2. Pulse ox on. NIBP on. 23:03 Patient arrived in ED. am2 23:04 George Cooper, RN is Primary Nurse. jb4 23:07 Triage completed. jb4 23:18 Tanner Evans MD is Attending Physician. tw4 04/05 00:46 X-ray completed. Portable x-ray completed in exam room. Patient tolerated procedure kw well. 00:46 CXR XRAY In Process Unspecified. EDMS 00:47 Knee Right 2 View XRAY In Process Unspecified. EDMS 07:30 No provider procedures requiring assistance completed. aa5 09:45 Patient did not have IV access during this emergency room visit. aa5 Administered Medications: 00:28 Drug: DuoNeb (3:1) (2.5 mg - 0.5 mg) 3 ml Route: Nebulizer; 4 00:50 Follow up: Response: No adverse reaction; Marked relief of symptoms jb4 00:40 Drug: Tylenol 1000 mg Route: PO; jb4 01:10 Follow up: Response: No adverse reaction; Pain is decreased jb4 Outcome: 00:47 Discharge ordered by . tw4 09:45 Discharged to [facility] via cab aa5 09:45 Condition: stable 09:45 Discharge instructions given to patient, Instructed on discharge instructions, follow up and referral plans. medication usage, Demonstrated understanding of instructions, follow-up care, medications, Prescriptions given X 4. 09:48 Patient left the ED. aa5 Signatures: Dispatcher [employer] EDMS Siri Rodriguez RN RN aa5 Marissa Zuniga James, RN RN jb4 Jolene Levin am2 Tanner Evans MD MD tw4 Corrections: (The following items were deleted from the chart) 00:51 04/04 22:54 Respiratory: Reports cough that is productive, Airway is patent Respiratory jb4 effort is even, unlabored, Respiratory pattern is symmetrical, tachypnea Breath sounds are clear bilaterally. jb4
[2019-04-05] MEDS ORDERED: ACETAMINOPHEN 500 MG TAB ONE (00:49)
--- NOTE | 2019-04-05 07:17 | RAD REPORT ---
EXAM DESCRIPTION: RAD - Chest Single View - 04/05/2019 12:47 am CLINICAL HISTORY: Persistent cough COMPARISON: December 14 TECHNIQUE: AP portable chest image was obtained 0039 hours . FINDINGS: No peripheral mass or consolidation. No failure volume overload. Fibrotic lung pattern is present similar to comparison. Trachea is in the midline. Heart size is upper normal without acute va scular engorgement. No measurable pleural effusion and no pneumothorax. No acute bone findings seen. Patient has severe degenerative changes at both shoulder joints. No acute aortic findings suspected. IMPRESSION: Chronic interstitial lung disease is present similar to comparison. Chronic chest findings detailed above are similar to December 14 imaging.
--- NOTE | 2019-04-05 07:19 | RAD REPORT ---
EXAM DESCRIPTION: RAD - Knee Right 2 View - 04/05/2019 12:47 am CLINICAL HISTORY: Persistent right knee pain COMPARISON: None. FINDINGS: No fracture, dislocation or periosteal reaction.Moderately large joint effusion is present . Patient has significant joint space narrowing of both the mediolateral compartments with lateral beltran bluxation 10 mm of the tibial plateau relative to the femoral condyles. Patella femoral joint space n arrowing is present with severe marginal spurs. Significant posterior marginal spurring seen at the m edial and lateral compartments. Sclerotic changes are present to the tibial plateau and lateral femor al condyle. No air or foreign body in the soft tissues. 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 Moderately large joint effusion. No fracture or acute bone process identifiable. Clinical concerns for internal derangement or occult bony injury could be further assessed with MR imaging.
[2019-04-05 09:57] VITALS: BP 155/77; TEMP 99; O2SAT 98
== END 2019-04-05 09:48 | disposition home or self-care (01) ==
LOC: ER 23:01
DX: J40 Bronchitis, not specified as acute or chronic (principal); F31.9 Bipolar disorder, unspecified; F32.9 Major depressive disorder, single episode, unspecified; I10 Essential (primary) hypertension; Z86.73 Personal history of transient ischemic attack (TIA), and cerebral infarction without residual deficits; I25.2 Old myocardial infarction
CPT/HCPCS: 71045; 94640; 99284

== ENCOUNTER 2019-04-07 00:33 | Emergency (ER) | payer SELFPAY ==
--- OUTSIDE RECORDS SUMMARY | 2019-04-07 00:35 | XMS REPORT | Clinical Summary ---
:1935 Author Organization [facility] Address [address] [place] [address] Care Team Providers Name Role Phone Unavailable [...] 12/18/2018 Surgery Gastroenterology Courtney Taylor MD 12/16/2018 [facility] Internal Ilene Law Diverticulosis of large intestine with hemorrhage; - Encounter Medicine MD Viv Depression, unspecified depression type; 12/18/2018 Radha, Suicidal ideation MD Geeta Tanner Umar, MD 12/16/2018 Travel after 04/06/2018 Social History Tobacco Use Types Packs/Day Years Used Date Never Smoker Smokeless Tobacco: Never Used Sex Assigned at Date Recorded Not on file Job Start Date Occupation Industry Not on file Not on file Not on file Travel History Travel Start Travel End No recent travel history available. Last Filed Vital Signs Vital Sign Reading Time Taken Blood Pressure 125/68 12/18/2018 10:03 AM [employer] Pulse 62 12/18/2018 10:03 AM [employer] Temperature 36.2 C (97.2 F) 12/18/2018 10:03 AM [employer] Respiratory Rate 18 12/18/2018 10:03 AM [employer] Oxygen Saturation 98% 12/18/2018 10:03 AM [employer] Inhaled Oxygen Concentration - - Weight 100.3 kg (221 lb 3.2 oz) 12/18/2018 7:45 AM [employer] Height 175.3 cm (5' 9") 12/18/2018 7:45 AM [employer] Body Mass Index 32.67 12/18/2018 7:45 AM [employer] Plan of Treatment Not on file Procedures Procedure Name Priority Date/Time Associated Comments Diagnosis RHYTHM STRIP - SCAN 01/04/2019 7:40 AM [employer] REPORT OF PROCEDURE - 12/18/2018 8:41 ENDOSCOPY URL AM [employer] COLONOSCOPY 12/18/2018 8:00 Rectal bleed AM [employer] RPR Routine 12/17/2018 4:10 Results for this PM [employer] procedure are in the results section. TSH/FREE T4 IF Routine 12/17/2018 3:38 Results for this INDICATED PM [employer] procedure are in the results section. VITAMIN B12 AND FOLATE Routine 12/17/2018 3:38 Results for this PM [employer] procedure are in the results section. CBC W/PLT COUNT & AUTO Routine 12/17/2018 4:25 Results for this DIFFERENTIAL AM [employer] procedure are in the results section. COMPREHENSIVE Routine 12/17/2018 4:25 Results for this METABOLIC PANEL AM [employer] procedure are in the results section. CBC W/PLT COUNT & AUTO Routine 12/17/2018 4:25 Results for this DIFFERENTIAL AM [employer] procedure are in the results section. URINALYSIS W/ Routine 12/16/2018 6:16 Results for this MICROSCOPIC PM [employer] procedure are in the results section. CBC W/PLT COUNT & AUTO Routine 12/16/2018 6:02 Results for this DIFFERENTIAL AM [employer] procedure are in the results section. HEPATIC FUNCTION PANEL Routine 12/16/2018 6:02 Results for this AM [employer] procedure are in the results section. PROTHROMBIN TIME/INR Routine 12/16/2018 6:02 Results for this AM [employer] procedure are in the results section. BASIC METABOLIC PANEL Routine 12/16/2018 6:02 Results for this (7) AM [employer] procedure are in the results section. CBC W/PLT COUNT & AUTO Routine 12/16/2018 6:02 Results for this DIFFERENTIAL AM [employer] procedure are in the results section. after 04/06/2018 Results RHYTHM STRIP - SCAN (01/04/2019 7:40 AM [employer]) Narrative Performed At REPORT OF PROCEDURE - ENDOSCOPY URL (12/18/2018 8:41 AM [employer]) Narrative Performed At RPR (12/17/2018 4:10 PM [employer]) RPR Nonreactive Nonreactive [facility] Specimen Blood Performing Organization Address City/[facility]/Zipcode Phone Number [address] [address] [phone] CENTER Vitamin B12 and Folate (12/17/2018 3:38 PM [employer]) Vitamin B12 338 213 - 816 pg/mL [facility] Folate 10.4 >=7.0 ng/mL [facility] Specimen Blood Performing Organization Address City/[facility]/Zipcode Phone Number [address] [address] [phone] EXETER TSH/Free T4 If Indicated (12/17/2018 3:38 PM [employer]) TSH 0.54 0.35 - 4.94 uIU/mL [facility] Specimen Blood Performing Organization Address City/[facility] Phone Number [address] [address] [phone] EXETER CBC with platelet count + automated diff (12/17/2018 4:25 AM [employer])Only the most recent of2 resultswithin the time period is included. WBC 6.3 3.5 - 10.5 K/L [facility] RBC 4.13 (L) 4.63 - 6.08 M/L [facility] Hemoglobin 11.5 (L) 13.7 - 17.5 GM/DL [facility] Hematocrit 35.9 (L) 40.1 - 51.0 % [facility] MCV 86.9 79.0 - 92.2 fL [facility] MCH 27.8 25.7 - 32.2 pg [facility] MCHC 32.0 (L) 32.3 - 36.5 GM/DL [facility] RDW 14.0 11.6 - 14.4 % [facility] Platelets 280 150 - 450 K/CU MM [facility] MPV 9.7 9.4 - 12.4 fL [facility] nRBC 0 0 - 0 /100 WBC [facility] % Neutros 62 % [facility] % Lymphs 22 % [facility] % Monos 7 % [facility] % Eos 7 % [facility] % Baso 1 % [facility] # Neutros 3.91 1.78 - 5.38 K/L [facility] # Lymphs 1.39 1.32 - 3.57 K/L [facility] # Monos 0.45 0.30 - 0.82 K/L [facility] # Eos 0.43 0.04 - 0.54 K/L [facility] # Baso 0.04 0.01 - 0.08 K/L [facility] Immature Granulocytes-Relative 1 0 - 1 % [facility] Specimen Blood Performing Organization Address City/State/Zipcode Phone Number [facility] [address] [place] [address] CENTER Comprehensive metabolic panel (12/17/2018 4:25 AM [employer]) Protein, Total 6.1 6.0 - 8.3 gm/dL [facility] Albumin 3.5 3.5 - 5.0 g/dL [facility] Alkaline Phosphatase 61 40 - 150 U/L [facility] Total Bilirubin 0.4 0.2 - 1.2 mg/dL [facility] Sodium 137 136 - 145 meq/L [facility] Potassium 3.8 3.5 - 5.1 meq/L [facility] Chloride 106 98 - 107 meq/L [facility] CO2 23 22 - 29 meq/L [facility] BUN 12 7 - 21 mg/dL [facility] Creatinine 0.84 0.57 - 1.25 mg/dL [facility] Glucose 81 70 - 105 mg/dL [facility] Calcium 8.8 8.4 - 10.2 mg/dL [facility] AST 14 5 - 34 U/L [facility] ALT 17 6 - 55 U/L [facility] EGFR 87Comment: ESTIMATED GFR mL/min/1.73 sq m [facility] IS NOT ACCURATE [facility] CREATININE CLEARANCE IN PREDICTING GLOMERULAR FILTRATION RATE. ESTIMATED GFR IS NOT APPLICABLE FOR DIALYSIS PATIENTS. Specimen Blood Performing Organization Address City/State/Zipcode Phone Number [facility] [address] [place] [address] [phone] CENTER Urinalysis w/ Microscopic (12/16/2018 6:16 PM [employer]) Color, UA Light Yellow [facility] Clarity, UA Clear [facility] Specific [place], UA 1.009 1.001 - 1.035 [facility] pH, UA 7.0 5.0 - 8.0 [facility] Protein, UA Negative Negative [facility] Glucose, UA Negative Negative [facility] Ketones, UA Negative Negative [facility] Bilirubin, UA Negative Negative [facility] Blood, UA Negative Negative [facility] Nitrite, UA Negative Negative [facility] Leukocytes, UA Negative Negative [facility] Urobilinogen, UA 0.2 0.2 - 1.0 mg/dL [facility] RBC, UA <1 /HPF [facility] WBC, UA <1 /HPF [facility] Specimen Source Urine, Voided [facility] Specimen Urine Performing Organization Address [facility] Cent[facility]ode Phone Number [address] [address] [phone] CENTER Prothrombin time/INR (12/16/2018 6:02 AM [employer]) Protime 13.0 11.7 - 14.7 seconds [facility] INR 1.0 <=5.9 [facility] Specimen Blood Narrative Performed At RECOMMENDED COUMADIN/WARFARIN INR THERAPY [facility] RANGES STANDARD DOSE: 2.0 - 3.0 Includes: PROPHYLAXIS for venous thrombosis, systemic embolization; TREATMENT for venous thrombosis and/or pulmonary embolus. HIGH RISK: Target INR is 2.5-3.5 for patients with mechanical heart valves. Performing Organization Address [facility] Phone Number [address] [phone] EXETER Hepatic function panel (12/16/2018 6:02 AM [employer]) Protein, Total 6.2 6.0 - 8.3 gm/dL [facility] Albumin 3.6 3.5 - 5.0 g/dL [facility] Total Bilirubin 0.2 0.2 - 1.2 mg/dL [facility] Bilirubin, Direct 0.1 0.1 - 0.5 mg/dL [facility] Alkaline Phosphatase 63 40 - 150 U/L [facility] AST 19 5 - 34 U/L [facility] ALT 24 6 - 55 U/L [facility] Specimen Blood Performing Organization Address City/[facility]ode Phone Number [facility] [address] [place] [address] EXETER Basic metabolic panel (12/16/2018 6:02 AM [employer]) Sodium 138 136 - 145 meq/L [facility] Potassium 4.3 3.5 - 5.1 meq/L [facility] Chloride 106 98 - 107 meq/L [facility] CO2 25 22 - 29 meq/L [facility] BUN 21 7 - 21 mg/dL [facility] Creatinine 0.81 0.57 - 1.25 mg/dL [facility] Glucose 93 70 - 105 mg/dL [facility] Calcium 9.0 8.4 - 10.2 mg/dL [facility] EGFR 91Comment: ESTIMATED GFR IS mL/min/1.73 sq m [facility] NOT ACCURATE [facility] CENTER CLEARANCE IN PREDICTING GLOMERULAR FILTRATION RATE. ESTIMATED GFR IS NOT APPLICABLE FOR DIALYSIS PATIENTS. Specimen Blood Performing Organization Address City/State/Zipcode Phone Number [facility] [address] [place] [address] EXETER after 04/06/2018 Advance Directives For more information, please contact:[address] [phone] Code Status Date Activated Date Inactivated Comments Full Code 12/16/2018 5:09 AM This code status was determined by: Patient
--- OUTSIDE RECORDS SUMMARY | 2019-04-07 00:36 | XMS REPORT ---
:1935 [facility] Marino Dominguez [address] [place] [id number] Care Team Providers Name Role Phone BARON JORDAN Unavailable Unavailable Problems This patient has no known problems. Allergies, Adverse Reactions, Alerts This patient has no known allergies or adverse reactions. Medications This patient has no known medications. Results Test Description Test Time Test Comments Text Results Atomic Results Result Comments RPR 2018-12-18 16:24:00 Test Item Value Reference Range Comments RPR SCREEN (BEAKER) (test kque=664) Nonreactive Nonreactive TSH/FREE T4 IF [id number] 16:46:00 Test Item Value Reference Range Comments THYROID STIMULATING HORMONE (BEAKER) (test 0.54 uIU/mL 0.35-4.94 snsn=145) VITAMIN B12 AND [id number] 16:46:00 Test Item Value Reference Range Comments VITAMIN B12 (BEAKER) (test sumj=454) 338 pg/mL 213-816 FOLATE (BEAKER) (test vwoe=047) 10.4 ng/mL >=7.0 COMPREHENSIVE METABOLIC [id number] 06:22:00 Test Item Value Reference Range Comments TOTAL PROTEIN (BEAKER) 6.1 gm/dL 6.0-8.3 (test waiz=338) ALBUMIN (BEAKER) (test 3.5 g/dL 3.5-5.0 gbqp=0041) ALKALINE PHOSPHATASE 61 U/L 40-150 (BEAKER) (test vzvu=704) BILIRUBIN TOTAL (BEAKER) 0.4 mg/dL 0.2-1.2 (test gxge=499) SODIUM (BEAKER) (test 137 meq/L 136-145 sfnl=390) POTASSIUM (BEAKER) (test 3.8 meq/L 3.5-5.1 thxs=366) CHLORIDE (BEAKER) (test 106 meq/L 98-107 cbwx=245) CO2 (BEAKER) (test 23 meq/L 22-29 srnf=040) BLOOD UREA NITROGEN 12 mg/dL 7-21 (BEAKER) (test iewb=515) CREATININE (BEAKER) (test 0.84 mg/dL 0.57-1.25 vdda=682) GLUCOSE RANDOM (BEAKER) 81 mg/dL 70-105 (test vgkb=142) CALCIUM (BEAKER) (test 8.8 mg/dL 8.4-10.2 pvum=307) AST (SGOT) (BEAKER) (test 14 U/L 5-34 xlab=191) ALT (SGPT) (BEAKER) (test 17 U/L 6-55 zhgi=761) EGFR (BEAKER) (test 87 mL/min/1.73 sq m ESTIMATED GFR IS NOT tbqu=8539) ACCURATE CREATININE CLEARANCE IN PREDICTING GLOMERULAR FILTRATION RATE. ESTIMATED GFR IS NOT APPLICABLE FOR DIALYSIS PATIENTS. CBC W/PLT COUNT & AUTO [id number] 05:34:00 Test Item Value Reference Range Comments WHITE BLOOD CELL COUNT (BEAKER) (test sjzq=065) 6.3 K/ L 3.5-10.5 RED BLOOD CELL COUNT (BEAKER) (test wgwd=310) 4.13 M/ L 4.63-6.08 HEMOGLOBIN (BEAKER) (test rytu=387) 11.5 GM/DL 13.7-17.5 HEMATOCRIT (BEAKER) (test uomt=866) 35.9 % 40.1-51.0 MEAN CORPUSCULAR VOLUME (BEAKER) (test pmik=388) 86.9 fL 79.0-92.2 MEAN CORPUSCULAR HEMOGLOBIN (BEAKER) (test 27.8 pg 25.7-32.2 sufa=784) MEAN CORPUSCULAR HEMOGLOBIN CONC (BEAKER) (test 32.0 GM/DL 32.3-36.5 damb=006) RED CELL DISTRIBUTION WIDTH (BEAKER) (test 14.0 % 11.6-14.4 tgbp=406) PLATELET COUNT (BEAKER) (test bgbj=439) 280 K/CU MM 150-450 MEAN PLATELET VOLUME (BEAKER) (test puzl=760) 9.7 fL 9.4-12.4 NUCLEATED RED BLOOD CELLS (BEAKER) (test 0 /100 WBC 0-0 fojq=333) NEUTROPHILS RELATIVE PERCENT (BEAKER) (test 62 % vtsc=152) LYMPHOCYTES RELATIVE PERCENT (BEAKER) (test 22 % xnck=198) MONOCYTES RELATIVE PERCENT (BEAKER) (test 7 % rxrz=728) EOSINOPHILS RELATIVE PERCENT (BEAKER) (test 7 % atrr=647) BASOPHILS RELATIVE PERCENT (BEAKER) (test 1 % oslw=901) NEUTROPHILS ABSOLUTE COUNT (BEAKER) (test 3.91 K/ L 1.78-5.38 xipi=460) LYMPHOCYTES ABSOLUTE COUNT (BEAKER) (test 1.39 K/ L 1.32-3.57 whcg=707) MONOCYTES ABSOLUTE COUNT (BEAKER) (test 0.45 K/ L 0.30-0.82 xmjo=464) EOSINOPHILS ABSOLUTE COUNT (BEAKER) (test 0.43 K/ L 0.04-0.54 wvgt=273) BASOPHILS ABSOLUTE COUNT (BEAKER) (test 0.04 K/ L 0.01-0.08 yyfv=143) IMMATURE GRANULOCYTES-RELATIVE PERCENT (BEAKER) 1 % 0-1 (test mnmp=6728) URINALYSIS W/ [id number] 19:09:00 Test Item Value Reference Range Comments COLOR (BEAKER) (test rvkg=009) Light Yellow CLARITY (BEAKER) (test whve=044) Clear SPECIFIC GRAVITY UA (BEAKER) (test riur=877) 1.009 1.001-1.035 PH UA (BEAKER) (test cxbe=122) 7.0 5.0-8.0 PROTEIN UA (BEAKER) (test zisi=605) Negative Negative GLUCOSE UA (BEAKER) (test vecv=548) Negative Negative KETONES UA (BEAKER) (test ojes=191) Negative Negative BILIRUBIN UA (BEAKER) (test tkob=337) Negative Negative BLOOD UA (BEAKER) (test uyre=634) Negative Negative NITRITE UA (BEAKER) (test jmui=510) Negative Negative LEUKOCYTE ESTERASE UA (BEAKER) (test oxsv=775) Negative Negative UROBILINOGEN UA (BEAKER) (test dnxw=889) 0.2 mg/dL 0.2-1.0 RBC UA (BEAKER) (test rebd=980) < /HPF WBC UA (BEAKER) (test exse=782) < /HPF SOURCE(BEAKER) (test qbdh=8130) Urine, Voided PROTHROMBIN [id number] 06:35:00 Test Item Value Reference Range Comments PROTIME (BEAKER) (test woyn=191) 13.0 seconds 11.7-14.7 INR (BEAKER) (test zdzb=712) 1.0 <=5.9 RECOMMENDED COUMADIN/WARFARIN INR THERAPY RANGESSTANDARD DOSE: 2.0 - 3.0 Includes: PROPHYLAXIS forvenous thrombosis, systemic embolization; TREATMENT for venous thrombosis and/or pulmonary embolus.HIGH RISK: Target INR is 2.5-3.5 for patients with mechanical heart valves.HEPATIC FUNCTION [id number] 06:32 :00 Test Item Value Reference Range Comments TOTAL PROTEIN (BEAKER) (test devb=454) 6.2 gm/dL 6.0-8.3 ALBUMIN (BEAKER) (test gaxp=2252) 3.6 g/dL 3.5-5.0 BILIRUBIN TOTAL (BEAKER) (test phlv=806) 0.2 mg/dL 0.2-1.2 BILIRUBIN DIRECT (BEAKER) (test spdv=536) 0.1 mg/dL 0.1-0.5 ALKALINE PHOSPHATASE (BEAKER) (test bppb=877) 63 U/L 40-150 AST (SGOT) (BEAKER) (test rmif=890) 19 U/L 5-34 ALT (SGPT) (BEAKER) (test rrom=497) 24 U/L 6-55 BASIC METABOLIC [id number] 06:32:00 Test Item Value Reference Range Comments SODIUM (BEAKER) (test 138 meq/L 136-145 niug=813) POTASSIUM (BEAKER) (test 4.3 meq/L 3.5-5.1 mkwh=679) CHLORIDE (BEAKER) (test 106 meq/L 98-107 jscx=834) CO2 (BEAKER) (test 25 meq/L 22-29 vbbl=899) BLOOD UREA NITROGEN 21 mg/dL 7-21 (BEAKER) (test iwin=332) CREATININE (BEAKER) (test 0.81 mg/dL 0.57-1.25 gihp=867) GLUCOSE RANDOM (BEAKER) 93 mg/dL 70-105 (test jtag=348) CALCIUM (BEAKER) (test 9.0 mg/dL 8.4-10.2 edqt=141) EGFR (BEAKER) (test 91 mL/min/1.73 sq m ESTIMATED GFR IS NOT ebmp=7899) ACCURATE CREATININE CLEARANCE IN PREDICTING GLOMERULAR FILTRATION RATE. ESTIMATED GFR IS NOT APPLICABLE FOR DIALYSIS PATIENTS. CBC W/PLT COUNT & AUTO [id number] 06:14:00 Test Item Value Reference Range Comments WHITE BLOOD CELL COUNT (BEAKER) (test jwlw=649) 6.0 K/ L 3.5-10.5 RED BLOOD CELL COUNT (BEAKER) (test izcn=996) 4.19 M/ L 4.63-6.08 HEMOGLOBIN (BEAKER) (test ztlp=967) 11.6 GM/DL 13.7-17.5 HEMATOCRIT (BEAKER) (test pjjz=919) 36.4 % 40.1-51.0 MEAN CORPUSCULAR VOLUME (BEAKER) (test zghd=478) 86.9 fL 79.0-92.2 MEAN CORPUSCULAR HEMOGLOBIN (BEAKER) (test 27.7 pg 25.7-32.2 cplo=739) MEAN CORPUSCULAR HEMOGLOBIN CONC (BEAKER) (test 31.9 GM/DL 32.3-36.5 rkli=699) RED CELL DISTRIBUTION WIDTH (BEAKER) (test 13.8 % 11.6-14.4 osvv=754) PLATELET COUNT (BEAKER) (test kzjt=330) 263 K/CU MM 150-450 MEAN PLATELET VOLUME (BEAKER) (test ptjz=047) 9.2 fL 9.4-12.4 NUCLEATED RED BLOOD CELLS (BEAKER) (test 0 /100 WBC 0-0 lctp=142) NEUTROPHILS RELATIVE PERCENT (BEAKER) (test 60 % hrhb=323) LYMPHOCYTES RELATIVE PERCENT (BEAKER) (test 29 % yqqb=249) MONOCYTES RELATIVE PERCENT (BEAKER) (test 7 % wtof=440) EOSINOPHILS RELATIVE PERCENT (BEAKER) (test 4 % zdjc=277) BASOPHILS RELATIVE PERCENT (BEAKER) (test 1 % iqoc=573) NEUTROPHILS ABSOLUTE COUNT (BEAKER) (test 3.58 K/ L 1.78-5.38 vcpm=625) LYMPHOCYTES ABSOLUTE COUNT (BEAKER) (test 1.71 K/ L 1.32-3.57 mdvd=190) MONOCYTES ABSOLUTE COUNT (BEAKER) (test 0.39 K/ L 0.30-0.82 ovir=585) EOSINOPHILS ABSOLUTE COUNT (BEAKER) (test 0.22 K/ L 0.04-0.54 lawy=124) BASOPHILS ABSOLUTE COUNT (BEAKER) (test 0.03 K/ L 0.01-0.08 gxow=929) IMMATURE GRANULOCYTES-RELATIVE PERCENT (BEAKER) 1 % 0-1 (test oocf=1509) MRI Spine Lumbar w/o [id number] 13:46:08Patient: JANA DEUTSCH Date/Time09/11/2018 12:21 CDTReason for ExamMyelopathy/progressive motor dysfunctionReportMRI OF THE LUMBAR SPINE WITHOUT CONTRASTLOCATION: [id number]: Lumbar spine radiograph INDICATION: Myelopathy/progressive motor dysfunctionTechnique:Sagittal [...] (Electronic Signature): 09/11/2018 1:46 pmMRI Brain w/o [id number] 23:19:03Patient: JANA DEUTSCH Date/Time09/10/2018 20:41 CDTReason [...] Signature): 09/10/2018 11:19 pmXR Chest 1 View [id number] 21: 19:22Patient: JANA DEUTSCH Date/Time09/09/2018 21:02 CDTReason [...] (Electronic Signature): 09/09/2018 9:19 pmCT Brain/Head w/o [id number] 21:02:57Patient: JANA DEUTSCH Date/Time09/09/2018 20:42 CDTReason for [...] : 09/09/2018 9:02 pmXR Spine Lumbosacral 4+ [id number] 12:00:52Patient: JANA DEUTSCH Date/ Time09/09/2018 11:47 CDTReason [...] FSigned (Electronic Signature): 09/09/2018 12:00 pmXR Femur [id number] 11:59:24Patient: JANA DEUTSCH Date/Time09/09/2018 11:47 CDTReason for [...] Signature): 09/09/2018 11:59 amXR Knee 3 Views [id number] 11:57 :19Patient: JANA DEUTSCH Date/Time09/09/2018 11:47 CDTReason [...] (Electronic Signature): 09/09/2018 11:57 amCT Brain/Head w/o [id number] 17:56:57Patient: JANA DEUTSCH Date/Time09/04/2018 16:55 CDTReason for [...]
[2019-04-07] MEDS ORDERED: NA CHLORIDE 0.9% 1,000 ML ONE (01:07)
[2019-04-07 01:53] LABS: Absolute Lymphocytes (CBC) 1.1 K/uL (0.7-4.9); Absolute Monocytes 0.5 K/uL (0.1-1.3); Absolute Neutrophil 2.5 K/uL (1.8-8.0); Basophils % 0.8 % (0-1.3); Eosinophils % 11.9 % (0-4.4); Hematocrit 34.3 % (39.6-49.0); Lymphocytes % 23.1 % (15.3-44.8); MPV 8.3 fL (7.6-11.3); Monocytes % 10.4 % (3.3-12.3); Protime INR 0.92; RBC Red Blood Cell Count 4.13 M/uL (4.33-5.43)
[2019-04-07 02:12] LABS: ALT/SGPT 22 U/L (12-78); AST/SGOT 19 U/L (15-37); Albumin 3.4 g/dL (3.4-5.0); Alkaline Phosphatase 86 U/L (45-117); BUN Blood Urea Nitrogen 18 mg/dL (7-18); Bicarbonate 24 mmol/L (21-32); Bilirubin Direct 0.1 mg/dL (0-0.2); Bilirubin Total 0.2 mg/dL (0.2-1.0); Glucose Level 117 mg/dL (74-106); Lipase 151 U/L (73-393); Magnesium 2.2 mg/dL (1.8-2.4); NT PRO-BNP 68 pg/mL (<450); Potassium 4.3 mmol/L (3.5-5.1); Sodium Level 139 mmol/L (136-145); Troponin (Emerg Dept Use Only) < 0.02 ng/mL (0.0-0.045)
--- NOTE | 2019-04-07 02:26 | ER ---
Nurse's Notes [facility] Name: Jose Thomas Age: 83 yrs Sex: Male : 1935 Arrival Date: 04/07/2019 Time: 00:36 Bed 18 Private MD: Diagnosis: Cough;Essential (primary) hypertension Presentation: 04/07 00:36 Presenting complaint: EMS states: Reports pt is complaining of cough for a few days and ea the "taste of blood to the back of his mouth". Transition of care: patient was not received from another setting of care. Onset of symptoms was April 07, 2019. Risk Assessment: Do you want to hurt yourself or someone else? Patient reports no desire to harm self or others. Initial Sepsis Screen: Does the patient meet any 2 criteria? No. Patient's initial sepsis screen is negative. Does the patient have a suspected source of infection? Yes: Productive cough/pneumonia. Care prior to arrival: None. 00:36 Method Of Arrival: EMS: [facility] ea 00:36 Acuity: HAO 3 ea Historical: - Allergies: 00:50 No Known Allergies; ea - Home Meds: 00:50 unknown BP med [Active]; ea - PMHx: 00:50 Myocardial infarction; Hypertension; Headaches; diptheria; Depression; CVA; Bipolar ea disorder; Arthritis; - PSHx: 00:50 None; ea - Immunization history:: Adult Immunizations up to date. - Social history:: Smoking status: Patient/guardian denies using tobacco. - Ebola Screening: : No symptoms or risks identified at this time. - Family history:: not pertinent. Screenin:40 Abuse screen: Denies threats or abuse. Nutritional screening: No deficits noted. ea Tuberculosis screening: No symptoms or risk factors identified. Fall Risk Gait- Impaired (20 pts.). Assessment: 00:45 General: Appears in no apparent distress. comfortable, Behavior is calm, cooperative, tl2 appropriate for age. Pain: Denies pain. Neuro: Level of Consciousness is awake, alert, obeys commands, Oriented to person, place, time, situation. Cardiovascular: Denies chest pain. Respiratory: Reports cough that is Airway is patent Respiratory effort is even, unlabored, Respiratory pattern is regular, symmetrical. GI: Reports constipation. : No signs and/or symptoms were reported regarding the genitourinary system. Derm: Skin is pink, warm \\T\\ dry. 02:27 Reassessment: Unable to find patient a ride back to the [facility]. Pt will remain tl2 in ER until the morning. 07:10 Reassessment: coffee given to patient per request. 08:00 Reassessment: Spoke with meat manager KRYSTAL Calzada who reports that she will see what we can ss do to get patient back to [facility] as they cannot intake patient until 5 pm and patient has unsteady gait with walker and is unable to get onto public transportation safely. Diet tray ordered. 08:40 Reassessment: urinal given to patient. 08:53 Reassessment: Pt assisted to restroom to have BM. Vital Signs: 00:45 BP 166 / 99; Pulse 98; Resp 18; Temp 98.2; Pulse Ox 98% on R/A; Weight 104.33 kg; ea Height 6 ft. 0 in. (182.88 cm); 01:40 BP 159 / 104; Pulse 70; Resp 18; Pulse Ox 100% on R/A; tl2 02:22 BP 172 / 105; Pulse 69; Resp 18; Pulse Ox 100% on R/A; tl2 03:23 BP 182 / 103; Pulse 66; Resp 18; Pulse Ox 98% on R/A; tl2 06:28 BP 152 / 91; Pulse 65; Resp 18; Pulse Ox 98% on R/A; tl2 00:45 Body Mass Index 31.19 (104.33 kg, 182.88 cm) ea ED Course: 00:36 Patient arrived in ED. bb 00:38 Triage completed. ea 00:38 Patient has correct armband on for positive identification. Bed in low position. Call ea light in reach. Side rails up X2. 00:38 Arm band placed on right wrist. Patient placed in an exam room, on a stretcher, on ea pulse oximetry. 00:39 Rakesh Maloney MD is Attending Physician. hortencia 00:45 Cleaned of incontinence. tl2 01:03 X-ray completed. Portable x-ray completed in exam room. Patient tolerated procedure kw well. 01:05 XRAY Chest (1 view) In Process Unspecified. EDMS 01:15 EKG done, by ED staff, reviewed by Rakesh Maloney MD. tl2 01:20 Initial lab(s) drawn, by ny, sent to lab. Inserted saline lock: 20 gauge in right tl2 forearm, using aseptic technique. Blood collected. 01:29 Felicita Valerio, RN is Primary Nurse. tl2 07:26 Primary Nurse role handed off by Felicita Valerio, RN tw2 07:26 Shital Corcoran, RN is Primary Nurse. tw2 07:27 Awaiting transportation. tw2 09:53 No provider procedures requiring assistance completed. IV discontinued, intact, ss bleeding controlled, No redness/swelling at site. Pressure dressing applied. Administered Medications: 01:28 Drug: NS 0.9% 1000 ml Route: IV; Rate: 125 ml/hr; Site: right forearm; tl2 07:30 Follow up: IV Status: Order to discontinue infusion tw2 Outcome: 02:26 Discharge ordered by . hortencia 09:53 Discharged to home VIA taxi. to [facility]. Spoke with [facility] rep who ss reports that they are expecting him 09:53 Condition: good 09:53 Discharge instructions given to patient, family, Instructed on discharge instructions, follow up and referral plans. medication usage, Demonstrated understanding of instructions, follow-up care, medications, Prescriptions given X 1. 09:55 Patient left the ED. ss Signatures: Dispatcher [employer] EDMS Rakesh Maloney MD MD cha Ballard, Brenda, Sintia Jane RN, RN RN ss Whitley, Kimberlee kw Wise, Tara, KRYSTAL RICE 2 Felicita Valerio RN RN 2 Alisa Guevara RN RN ea Corrections: (The following items were deleted from the chart) 00:49 00:45 Pulse 98bpm; Resp 18bpm; Pulse Ox 98% RA; Temp 98.2F; 104.33 kg; Height 6 ft. 0 ea in.; BMI: 31.1; ea 01:31 01:28 BASIC METABOLIC PANEL+C.LAB.BRZ drawn and sent. tl2 tl2
--- NOTE | 2019-04-07 02:26 | EDPHYS ---
Physician Documentation [facility] Name: Jose Thomas Age: 83 yrs Sex: Male : 1935 Arrival Date: 04/07/2019 Time: 00:36 Bed 18 Private MD: ED Physician Rakesh Maloney HPI: 04/07 01:04 This 83 yrs old Other Male presents to ER via EMS with complaints of cough , blood hortencia taste in mouth. 01:04 The patient or guardian reports cough. Onset: The symptoms/episode began/occurred 2 hortencia day(s) ago. Modifying factors: The symptoms are alleviated by nothing. the symptoms are aggravated by nothing. Associated signs and symptoms: The patient has no apparent associated signs or symptoms. Severity of symptoms: At their worst the symptoms were mild. The patient has not experienced similar symptoms in the past. Historical: - Allergies: 00:50 No Known Allergies; ea - Home Meds: 00:50 unknown BP med [Active]; ea - PMHx: 00:50 Myocardial infarction; Hypertension; Headaches; diptheria; Depression; CVA; Bipolar ea disorder; Arthritis; - PSHx: 00:50 None; ea - Immunization history:: Adult Immunizations up to date. - Social history:: Smoking status: Patient/guardian denies using tobacco. - Ebola Screening: : No symptoms or risks identified at this time. - Family history:: not pertinent. ROS: 01:04 Constitutional: Negative for fever, chills, and weight loss, Eyes: Negative for injury, hortencia pain, redness, and discharge, ENT: Negative for injury, pain, and discharge, Neck: Negative for injury, pain, and swelling, Cardiovascular: Negative for chest pain, palpitations, and edema, Abdomen/GI: Negative for abdominal pain, nausea, vomiting, diarrhea, and constipation, Back: Negative for injury and pain, : Negative for injury, bleeding, discharge, and swelling, MS/Extremity: Negative for injury and deformity, Skin: Negative for injury, rash, and discoloration, Neuro: Negative for headache, weakness, numbness, tingling, and seizure, Psych: Negative for depression, anxiety, suicide ideation, homicidal ideation, and hallucinations, Allergy/Immunology: Negative for hives, rash, and allergies, Endocrine: Negative for neck swelling, polydipsia, polyuria, polyphagia, and marked weight changes, Hematologic/Lymphatic: Negative for swollen nodes, abnormal bleeding, and unusual bruising. 01:04 Respiratory: Positive for cough, with no reported sputum. Exam: 01:04 Constitutional: This is a well developed, well nourished patient who is awake, alert, hortencia and in no acute distress. Head/Face: Normocephalic, atraumatic. Eyes: Pupils equal round and reactive to light, extra-ocular motions intact. Lids and lashes normal. Conjunctiva and sclera are non-icteric and not injected. Cornea within normal limits. Periorbital areas with no swelling, redness, or edema. ENT: Nares patent. No nasal discharge, no septal abnormalities noted. Tympanic membranes are normal and external auditory canals are clear. Oropharynx with no redness, swelling, or masses, exudates, or evidence of obstruction, uvula midline. Mucous membranes moist. Neck: Trachea midline, no thyromegaly or masses palpated, and no cervical lymphadenopathy. Supple, full range of motion without nuchal rigidity, or vertebral point tenderness. No Meningismus. Chest/axilla: Normal chest wall appearance and motion. Nontender with no deformity. No lesions are appreciated. Cardiovascular: Regular rate and rhythm with a normal S1 and S2. No gallops, murmurs, or rubs. Normal PMI, no JVD. No pulse deficits. Respiratory: Lungs have equal breath sounds bilaterally, clear to auscultation and percussion. No rales, rhonchi or wheezes noted. No increased work of breathing, no retractions or nasal flaring. Abdomen/GI: Soft, non-tender, with normal bowel sounds. No distension or tympany. No guarding or rebound. No evidence of tenderness throughout. Back: No spinal tenderness. No costovertebral tenderness. Full range of motion. Male : Normal genitalia with no discharge or lesions. Skin: Warm, dry with normal turgor. Normal color with no rashes, no lesions, and no evidence of cellulitis. MS/ Extremity: Pulses equal, no cyanosis. Neurovascular intact. Full, normal range of motion. Neuro: Awake and alert, GCS 15, oriented to person, place, time, and situation. Cranial nerves II-XII grossly intact. Motor strength 5/5 in all extremities. Sensory grossly intact. Cerebellar exam normal. Normal gait. Psych: Awake, alert, with orientation to person, place and time. Behavior, mood, and affect are within normal limits. Vital Signs: 00:45 BP 166 / 99; Pulse 98; Resp 18; Temp 98.2; Pulse Ox 98% on R/A; Weight 104.33 kg; ea Height 6 ft. 0 in. (182.88 cm); 01:40 BP 159 / 104; Pulse 70; Resp 18; Pulse Ox 100% on R/A; tl2 02:22 BP 172 / 105; Pulse 69; Resp 18; Pulse Ox 100% on R/A; tl2 03:23 BP 182 / 103; Pulse 66; Resp 18; Pulse Ox 98% on R/A; tl2 06:28 BP 152 / 91; Pulse 65; Resp 18; Pulse Ox 98% on R/A; tl2 00:45 Body Mass Index 31.19 (104.33 kg, 182.88 cm) ea MDM: 00:54 Patient medically screened. [facility] 01:07 Data reviewed: vital signs, nurses notes, lab test result(s), EKG, radiologic studies, hortencia plain films. 04/07 00:40 Order name: Basic Metabolic Panel [facility] 04/07 00:40 Order name: CBC with Diff; Complete Time: 02:25 [facility] 04/07 00:40 Order name: LFT's; Complete Time: 02:25 [facility] 04/07 00:40 Order name: Magnesium; Complete Time: 02:25 [facility] 04/07 00:40 Order name: NT PRO-BNP; Complete Time: 02:25 [facility] 04/07 00:40 Order name: PT-INR; Complete Time: 02:25 [facility] 04/07 00:40 Order name: Troponin (emerg Dept Use Only); Complete Time: 02:25 [facility] 04/07 00:40 Order name: XRAY Chest (1 view) [facility] 04/07 00:40 Order name: EKG; Complete Time: 00:42 [facility] 04/07 00:40 Order name: Cardiac monitoring; Complete Time: 01:29 hortencia 04/07 00:40 Order name: Lipase; Complete Time: 02:25 [facility] 04/07 00:41 Order name: Basic Metabolic Panel; Complete Time: 02:25 EDMS 04/07 07:09 Order name: Diet Regular; Complete Time: 07:09 bb 04/07 00:40 Order name: EKG - Nurse/Tech; Complete Time: : [facility] 04/07 00:40 Order name: IV Saline Lock; Complete Time: : [facility] 04/07 00:40 Order name: Labs collected and sent; Complete Time: [facility] 04/07 00:40 Order name: O2 Per Protocol; Complete Time: : [facility] 04/07 00:40 Order name: O2 Sat Monitoring; Complete Time: [facility] Administered Medications: Drug: NS 0.9% 1000 ml Route: IV; Rate: 125 ml/hr; Site: right forearm; tl2 07:30 Follow up: IV Status: Order to discontinue infusion tw2 Disposition: 04/07/19 02:26 Discharged to Home. Impression: Cough, Essential (primary) hypertension. - Condition is Stable. - Discharge Instructions: Hypertension, Cool Mist Vaporizer, Hypertension, Avkv-zz-Pgdp, Cough, Adult, Wrgj-nc-Ebhc, Cough, Adult, Managing Your Hypertension. - Prescriptions for Tessalon Perles 100 mg Oral Capsule - take 1 capsule by ORAL route every 8 hours As needed; 15 capsule. - Medication Reconciliation Form, Thank You Letter, Antibiotic Education, Prescription Opioid Use form. - Follow up: Private Physician; When: 2 - 3 days; Reason: Recheck today's complaints, Continuance of care, Re-evaluation by your physician. - Problem is new. - Symptoms have improved. Signatures: Dispatcher [employer] EDAL Rakesh Maloney MD MD cha Smirch, Shelby, RN RN ss Knox, Taylor, RN RN tl2 Alisa Guevara RN RN ea Wise, Tara RN tw2 Corrections: (The following items were deleted from the chart) 09:55 02:26 04/07/2019 02:26 Discharged to Home. Impression: Cough; Essential (primary) ss hypertension. Condition is Stable. Discharge Instructions: Cool Mist Vaporizer, Cough, Adult, Djiu-ro-Mjmf, Cough, Adult. Prescriptions for Tessalon Perles 100 mg Oral Capsule - take 1 capsule by ORAL route every 8 hours As needed; 15 capsule. and Forms are Medication Reconciliation Form, Thank You Letter, Antibiotic Education, Prescription Opioid Use. Follow up: Private Physician; When: 2 - 3 days; Reason: Recheck today's complaints, Continuance of care, Re-evaluation by your physician. Problem is new. Symptoms have improved. hortencia
--- NOTE | 2019-04-07 08:06 | RAD REPORT ---
EXAM DESCRIPTION: RAD - Chest Single View - 04/07/2019 1:05 am CLINICAL HISTORY: Cough and congestion COMPARISON: April 05 TECHNIQUE: AP portable chest image was obtained 0053 hours . FINDINGS: Chronic interstitial lung disease is present similar to the comparison study. No new or pr ogressive focal lung parenchymal process. Failure/ volume overload not suspected. Heart and vasculatu re are normal. No measurable pleural effusion and no pneumothorax. Prominent bilateral shoulder joint degenerative change present matching comparison. No acute aortic findings suspected. IMPRESSION: No acute cardiopulmonary process. Chronic interstitial pattern is similar to comparison.
--- NOTE | 2019-04-07 10:28 | EKG ---
Test Date: 2019-04-07 Test Time: 01:14:05 [employer]: DALTON MEASUREMENT RESULTS: Intervals: Rate: 64 OH: 208 QRSD: 94 QT: 426 QTc: 439 [facility]: P: 94 OH: 208 QRS: -9 T: 40 INTERPRETIVE STATEMENTS: Normal sinus rhythm Incomplete right bundle branch block Borderline ECG Compared to ECG 12/15/2018 22:21:58 No significant changes Electronically Signed On 04-07-19 10:27:47 CDT by Torres Vizcarra
[2019-04-07 14:57] VITALS: TEMP 98.2
[2019-04-07 15:00] VITALS: O2SAT 98
[2019-04-07 15:01] VITALS: BP 152/91
== END 2019-04-07 09:55 | disposition home or self-care (01) ==
LOC: ER 00:33
DX: R05 Cough (principal); I10 Essential (primary) hypertension
CPT/HCPCS: 36415; 71045; 80048; 80076; 83690; 83735; 83880; 84484; 85025; 85610; 93005; 96360; 96361; 99284; J7030

== ENCOUNTER 2019-04-15 14:58 | Inpatient (IN) | payer SELFPAY ==
[2019-04-15 15:44] LABS: Absolute Lymphocytes (CBC) 0.8 K/uL (0.7-4.9); Absolute Monocytes 0.5 K/uL (0.1-1.3); Absolute Neutrophil 4.8 K/uL (1.8-8.0); Basophils % 0.3 % (0-1.3); Eosinophils % 6.3 % (0-4.4); Hematocrit 36.7 % (39.6-49.0); Monocytes % 7.4 % (3.3-12.3); RBC Red Blood Cell Count 4.45 M/uL (4.33-5.43)
[2019-04-15 15:47] LABS: Protime INR 0.96
[2019-04-15 15:58] LABS: ALT/SGPT 23 U/L (12-78); AST/SGOT 20 U/L (15-37); Albumin 3.6 g/dL (3.4-5.0); Alkaline Phosphatase 86 U/L (45-117); BUN Blood Urea Nitrogen 16 mg/dL (7-18); Bicarbonate 28 mmol/L (21-32); Bilirubin Direct < 0.1 mg/dL (0-0.2); Bilirubin Total 0.2 mg/dL (0.2-1.0); Glucose Level 116 mg/dL (74-106); Potassium 4.5 mmol/L (3.5-5.1); Protein, Total 7.2 g/dL (6.4-8.2); Sodium Level 140 mmol/L (136-145)
--- OUTSIDE RECORDS SUMMARY | 2019-04-15 16:23 | XMS REPORT | Clinical Summary ---
:1935 Author Organization [facility] Address [address] [place] [address] Care Team Providers Name Role Phone Unavailable [...] 12/18/2018 Surgery Gastroenterology Courtney Taylor MD 12/16/2018 [facility] Internal Ilene Law Diverticulosis of large intestine with hemorrhage; - Encounter Medicine MD Viv Depression, unspecified depression type; 12/18/2018 Radha, Suicidal ideation MD Geeta Tanner Umar, MD 12/16/2018 Travel after 04/14/2018 Social History Tobacco Use Types Packs/Day Years Used Date Never Smoker Smokeless Tobacco: Never Used Sex Assigned at Date Recorded Not on file Job Start Date Occupation Industry Not on file Not on file Not on file Travel History Travel Start Travel End No recent travel history available. Last Filed Vital Signs Vital Sign Reading Time Taken Blood Pressure 125/68 12/18/2018 10:03 AM [facility] Pulse 62 12/18/2018 10:03 AM [employer] Temperature 36.2 C (97.2 F) 12/18/2018 10:03 AM [employer] Respiratory Rate 18 12/18/2018 10:03 AM [employer] Oxygen Saturation 98% 12/18/2018 10:03 AM [employer] Inhaled Oxygen Concentration - - Weight 100.3 kg (221 lb 3.2 oz) 12/18/2018 7:45 AM [employer] Height 175.3 cm (5' 9") 12/18/2018 7:45 AM [employer] Body Mass Index 32.67 12/18/2018 7:45 AM [employer] [employer] Plan of Treatment Not on file Procedures Procedure Name Priority Date/Time Associated Comments Diagnosis RHYTHM STRIP - SCAN 01/04/2019 7:40 AM [employer] REPORT OF PROCEDURE - 12/18/2018 8:41 ENDOSCOPY URL AM [employer] COLONOSCOPY 12/18/2018 8:00 Rectal bleed AM [employer] RPR Routine 12/17/2018 4:10 Results for this PM [employer] procedure are in the results section. TSH/FREE T4 IF Routine 12/17/2018 3:38 Results for this INDICATED PM [employer] procedure are in the results section. VITAMIN B12 AND FOLATE Routine 12/17/2018 3:38 Results for this PM [employer] procedure are in the results section. CBC W/PLT COUNT & AUTO Routine 12/17/2018 4:25 Results for this DIFFERENTIAL AM [employer] procedure are in the results section. COMPREHENSIVE Routine 12/17/2018 4:25 Results for this METABOLIC PANEL AM [employer] procedure are in the results section. CBC W/PLT COUNT & AUTO Routine 12/17/2018 4:25 Results for this DIFFERENTIAL AM [employer] procedure are in the results section. URINALYSIS W/ Routine 12/16/2018 6:16 Results for this MICROSCOPIC PM [employer] procedure are in the results section. CBC W/PLT COUNT & AUTO Routine 12/16/2018 6:02 Results for this DIFFERENTIAL AM [employer] procedure are in the results section. HEPATIC FUNCTION PANEL Routine 12/16/2018 6:02 Results for this AM [employer] procedure are in the results section. PROTHROMBIN TIME/INR Routine 12/16/2018 6:02 Results for this AM [employer] procedure are in the results section. BASIC METABOLIC PANEL Routine 12/16/2018 6:02 Results for this (7) AM [employer] procedure are in the results section. CBC W/PLT COUNT & AUTO Routine 12/16/2018 6:02 Results for this DIFFERENTIAL AM [employer] procedure are in the results section. after 04/14/2018 Results RHYTHM STRIP - SCAN (01/04/2019 7:40 AM [employer]) Narrative Performed At REPORT OF PROCEDURE - ENDOSCOPY URL (12/18/2018 8:41 AM [employer]) Narrative Performed At RPR (12/17/2018 4:10 PM [employer]) RPR Nonreactive Nonreactive [facility] Specimen Blood Performing Organization Address City/[facility]/Zipcode Phone Number [address] [address] [phone] CENTER Vitamin B12 and Folate (12/17/2018 3:38 PM [employer]) Vitamin B12 338 213 - 816 pg/mL [facility] Folate 10.4 >=7.0 ng/mL [facility] Specimen Blood Performing Organization Address City/[facility]/Zipcode Phone Number [address] [address] [place] TSH/Free T4 If Indicated (12/17/2018 3:38 PM [employer]) TSH 0.54 0.35 - 4.94 uIU/mL [facility] Specimen Blood Performing Organization Address City/[facility] Phone Number [address] [address] [place] CBC with platelet count + automated diff (12/17/2018 4:25 AM [employer])Only the most recent of2 resultswithin the time period is included. WBC 6.3 3.5 - 10.5 K/L [facility] RBC 4.13 (L) 4.63 - 6.08 M/L [facility] Hemoglobin 11.5 (L) 13.7 - 17.5 GM/DL [facility] Hematocrit 35.9 (L) 40.1 - 51.0 % [facility] MCV 86.9 79.0 - 92.2 fL [facility] MCH 27.8 25.7 - 32.2 pg [facility] MCHC 32.0 (L) 32.3 - 36.5 GM/DL [facility] RDW 14.0 11.6 - 14.4 % [facility] Platelets 280 150 - 450 K/CU MM [facility] MPV 9.7 9.4 - 12.4 fL [facility] nRBC 0 0 - 0 /100 WBC [facility] % Neutros 62 % [facility] % Lymphs 22 % [facility] % Monos 7 % [facility] % Eos 7 % [facility] % Baso 1 % [facility] # Neutros 3.91 1.78 - 5.38 K/L [facility] # Lymphs 1.39 1.32 - 3.57 K/L [facility] # Monos 0.45 0.30 - 0.82 K/L [facility] # Eos 0.43 0.04 - 0.54 K/L [facility] # Baso 0.04 0.01 - 0.08 K/L [facility] Immature Granulocytes-Relative 1 0 - 1 % [facility] Specimen Blood Performing Organization Address City/State/Zipcode Phone Number [facility] [address] [place] [address] CENTER Comprehensive metabolic panel (12/17/2018 4:25 AM [employer]) Protein, Total 6.1 6.0 - 8.3 gm/dL [facility] Albumin 3.5 3.5 - 5.0 g/dL [facility] Alkaline Phosphatase 61 40 - 150 U/L [facility] Total Bilirubin 0.4 0.2 - 1.2 mg/dL [facility] Sodium 137 136 - 145 meq/L [facility] Potassium 3.8 3.5 - 5.1 meq/L [facility] Chloride 106 98 - 107 meq/L [facility] CO2 23 22 - 29 meq/L [facility] BUN 12 7 - 21 mg/dL [facility] Creatinine 0.84 0.57 - 1.25 mg/dL [facility] Glucose 81 70 - 105 mg/dL [facility] Calcium 8.8 8.4 - 10.2 mg/dL [facility] AST 14 5 - 34 U/L [facility] ALT 17 6 - 55 U/L [facility] EGFR 87Comment: ESTIMATED GFR mL/min/1.73 sq m [facility] IS NOT ACCURATE [facility] CREATININE CLEARANCE IN PREDICTING GLOMERULAR FILTRATION RATE. ESTIMATED GFR IS NOT APPLICABLE FOR DIALYSIS PATIENTS. Specimen Blood Performing Organization Address City/State/Zipcode Phone Number [facility] [address] [place] [address] CENTER Urinalysis w/ Microscopic (12/16/2018 6:16 PM [employer]) Color, UA Light Yellow [facility] Clarity, UA Clear [facility] Specific [place], UA 1.009 1.001 - 1.035 [facility] pH, UA 7.0 5.0 - 8.0 [facility] Protein, UA Negative Negative [facility] Glucose, UA Negative Negative [facility] Ketones, UA Negative Negative [facility] Bilirubin, UA Negative Negative [facility] Blood, UA Negative Negative [facility] Nitrite, UA Negative Negative [facility] Leukocytes, UA Negative Negative [facility] Urobilinogen, UA 0.2 0.2 - 1.0 mg/dL [facility] RBC, UA <1 /HPF [facility] WBC, UA <1 /HPF [facility] Specimen Source Urine, Voided [facility] Specimen Urine Performing Organization Address [facility] Cent[facility]ode Phone Number [address] [address] CENTER Prothrombin time/INR (12/16/2018 6:02 AM [employer]) Protime 13.0 11.7 - 14.7 seconds [facility] INR 1.0 <=5.9 [facility] Specimen Blood Narrative Performed At RECOMMENDED COUMADIN/WARFARIN INR THERAPY [facility] RANGES STANDARD DOSE: 2.0 - 3.0 Includes: PROPHYLAXIS for venous thrombosis, systemic embolization; TREATMENT for venous thrombosis and/or pulmonary embolus. HIGH RISK: Target INR is 2.5-3.5 for patients with mechanical heart valves. Performing Organization Address [facility] Phone Number [address] [address] [phone] [place] Hepatic function panel (12/16/2018 6:02 AM [employer]) Protein, Total 6.2 6.0 - 8.3 gm/dL [facility] Albumin 3.6 3.5 - 5.0 g/dL [facility] Total Bilirubin 0.2 0.2 - 1.2 mg/dL [facility] Bilirubin, Direct 0.1 0.1 - 0.5 mg/dL [facility] Alkaline Phosphatase 63 40 - 150 U/L [facility] AST 19 5 - 34 U/L [facility] ALT 24 6 - 55 U/L [facility] Specimen Blood Performing Organization Address City/[facility] Cent[facility]ode Phone Number [facility] [address] [place] [address] [place] Basic metabolic panel (12/16/2018 6:02 AM [employer]) Sodium 138 136 - 145 meq/L [facility] Potassium 4.3 3.5 - 5.1 meq/L [facility] Chloride 106 98 - 107 meq/L [facility] CO2 25 22 - 29 meq/L [facility] BUN 21 7 - 21 mg/dL [facility] Creatinine 0.81 0.57 - 1.25 mg/dL [facility] Glucose 93 70 - 105 mg/dL [facility] Calcium 9.0 8.4 - 10.2 mg/dL [facility] EGFR 91Comment: ESTIMATED GFR IS mL/min/1.73 sq m [facility] NOT ACCURATE CREATININE [facility] CENTER CLEARANCE IN PREDICTING GLOMERULAR FILTRATION RATE. ESTIMATED GFR IS NOT APPLICABLE FOR DIALYSIS PATIENTS. Specimen Blood Performing Organization Address City/State/Zipcode Phone Number [facility] [address] [place] [address] [phone] [place] after 04/14/2018 Advance Directives For more information, please contact:[address] [phone] Code Status Date Activated Date Inactivated Comments Full Code 12/16/2018 5:09 AM This code status was determined by: Patient
--- OUTSIDE RECORDS SUMMARY | 2019-04-15 16:24 | XMS REPORT ---
:1935 [facility] Address [address] [place] [address] Dr. Dominguez [address] [place] [address] Care Team Providers Name Role Phone BARON JORDANOMA Unavailable Unavailable Problems This patient has no known problems. Allergies, Adverse Reactions, Alerts This patient has no known allergies or adverse reactions. Medications This patient has no known medications. Results Test Description Test Time Test Comments Text Results Atomic Results Result Comments RPR 2018-12-18 16:24:00 Test Item Value Reference Range Comments RPR SCREEN (BEAKER) (test jotd=936) Nonreactive Nonreactive TSH/FREE T4 IF [id number] 16:46:00 Test Item Value Reference Range Comments THYROID STIMULATING HORMONE (BEAKER) (test 0.54 uIU/mL 0.35-4.94 bgqj=844) VITAMIN B12 AND [id number] 16:46:00 Test Item Value Reference Range Comments VITAMIN B12 (BEAKER) (test rlhy=214) 338 pg/mL 213-816 FOLATE (BEAKER) (test gxzr=038) 10.4 ng/mL >=7.0 COMPREHENSIVE METABOLIC [id number] 06:22:00 Test Item Value Reference Range Comments TOTAL PROTEIN (BEAKER) 6.1 gm/dL 6.0-8.3 (test muuc=532) ALBUMIN (BEAKER) (test 3.5 g/dL 3.5-5.0 ztpn=8188) ALKALINE PHOSPHATASE 61 U/L 40-150 (BEAKER) (test llvl=631) BILIRUBIN TOTAL (BEAKER) 0.4 mg/dL 0.2-1.2 (test hsge=017) SODIUM (BEAKER) (test 137 meq/L 136-145 acql=969) POTASSIUM (BEAKER) (test 3.8 meq/L 3.5-5.1 lghn=399) CHLORIDE (BEAKER) (test 106 meq/L 98-107 eezs=019) CO2 (BEAKER) (test 23 meq/L 22-29 hfie=788) BLOOD UREA NITROGEN 12 mg/dL 7-21 (BEAKER) (test mlxm=167) CREATININE (BEAKER) (test 0.84 mg/dL 0.57-1.25 ymha=435) GLUCOSE RANDOM (BEAKER) 81 mg/dL 70-105 (test blxl=350) CALCIUM (BEAKER) (test 8.8 mg/dL 8.4-10.2 mnpj=417) AST (SGOT) (BEAKER) (test 14 U/L 5-34 ljbz=767) ALT (SGPT) (BEAKER) (test 17 U/L 6-55 wpyp=490) EGFR (BEAKER) (test 87 mL/min/1.73 sq m ESTIMATED GFR IS NOT abdu=5302) ACCURATE CREATININE CLEARANCE IN PREDICTING GLOMERULAR FILTRATION RATE. ESTIMATED GFR IS NOT APPLICABLE FOR DIALYSIS PATIENTS. CBC W/PLT COUNT & AUTO [id number] 05:34:00 Test Item Value Reference Range Comments WHITE BLOOD CELL COUNT (BEAKER) (test vwhe=948) 6.3 K/ L 3.5-10.5 RED BLOOD CELL COUNT (BEAKER) (test byjd=952) 4.13 M/ L 4.63-6.08 HEMOGLOBIN (BEAKER) (test zahx=389) 11.5 GM/DL 13.7-17.5 HEMATOCRIT (BEAKER) (test qcov=849) 35.9 % 40.1-51.0 MEAN CORPUSCULAR VOLUME (BEAKER) (test aqdi=728) 86.9 fL 79.0-92.2 MEAN CORPUSCULAR HEMOGLOBIN (BEAKER) (test 27.8 pg 25.7-32.2 yujr=173) MEAN CORPUSCULAR HEMOGLOBIN CONC (BEAKER) (test 32.0 GM/DL 32.3-36.5 uuzr=650) RED CELL DISTRIBUTION WIDTH (BEAKER) (test 14.0 % 11.6-14.4 shkt=851) PLATELET COUNT (BEAKER) (test lqhs=424) 280 K/CU MM 150-450 MEAN PLATELET VOLUME (BEAKER) (test josn=135) 9.7 fL 9.4-12.4 NUCLEATED RED BLOOD CELLS (BEAKER) (test 0 /100 WBC 0-0 xsty=284) NEUTROPHILS RELATIVE PERCENT (BEAKER) (test 62 % hqil=579) LYMPHOCYTES RELATIVE PERCENT (BEAKER) (test 22 % emtc=346) MONOCYTES RELATIVE PERCENT (BEAKER) (test 7 % ednz=921) EOSINOPHILS RELATIVE PERCENT (BEAKER) (test 7 % tsym=776) BASOPHILS RELATIVE PERCENT (BEAKER) (test 1 % mbix=595) NEUTROPHILS ABSOLUTE COUNT (BEAKER) (test 3.91 K/ L 1.78-5.38 sgbx=345) LYMPHOCYTES ABSOLUTE COUNT (BEAKER) (test 1.39 K/ L 1.32-3.57 iwex=216) MONOCYTES ABSOLUTE COUNT (BEAKER) (test 0.45 K/ L 0.30-0.82 atwc=799) EOSINOPHILS ABSOLUTE COUNT (BEAKER) (test 0.43 K/ L 0.04-0.54 xqvh=700) BASOPHILS ABSOLUTE COUNT (BEAKER) (test 0.04 K/ L 0.01-0.08 reof=615) IMMATURE GRANULOCYTES-RELATIVE PERCENT (BEAKER) 1 % 0-1 (test vmgg=2337) URINALYSIS W/ [id number] 19:09:00 Test Item Value Reference Range Comments COLOR (BEAKER) (test xmkh=273) Light Yellow CLARITY (BEAKER) (test kywa=814) Clear SPECIFIC GRAVITY UA (BEAKER) (test zohy=426) 1.009 1.001-1.035 PH UA (BEAKER) (test fyqt=975) 7.0 5.0-8.0 PROTEIN UA (BEAKER) (test ywrv=791) Negative Negative GLUCOSE UA (BEAKER) (test ascx=785) Negative Negative KETONES UA (BEAKER) (test wqis=110) Negative Negative BILIRUBIN UA (BEAKER) (test oxre=304) Negative Negative BLOOD UA (BEAKER) (test orlx=679) Negative Negative NITRITE UA (BEAKER) (test vebp=817) Negative Negative LEUKOCYTE ESTERASE UA (BEAKER) (test twcs=058) Negative Negative UROBILINOGEN UA (BEAKER) (test hwck=563) 0.2 mg/dL 0.2-1.0 RBC UA (BEAKER) (test fkzo=998) < /HPF WBC UA (BEAKER) (test iwlr=177) < /HPF SOURCE(BEAKER) (test lmgz=8896) Urine, Voided PROTHROMBIN [id number] 06:35:00 Test Item Value Reference Range Comments PROTIME (BEAKER) (test judi=351) 13.0 seconds 11.7-14.7 INR (BEAKER) (test ezgk=764) 1.0 <=5.9 RECOMMENDED COUMADIN/WARFARIN INR THERAPY RANGESSTANDARD DOSE: 2.0 - 3.0 Includes: PROPHYLAXIS forvenous thrombosis, systemic embolization; TREATMENT for venous thrombosis and/or pulmonary embolus.HIGH RISK: Target INR is 2.5-3.5 for patients with mechanical heart valves.HEPATIC FUNCTION [id number] 06:32 :00 Test Item Value Reference Range Comments TOTAL PROTEIN (BEAKER) (test fpfe=830) 6.2 gm/dL 6.0-8.3 ALBUMIN (BEAKER) (test fuil=9015) 3.6 g/dL 3.5-5.0 BILIRUBIN TOTAL (BEAKER) (test gard=910) 0.2 mg/dL 0.2-1.2 BILIRUBIN DIRECT (BEAKER) (test tbzy=988) 0.1 mg/dL 0.1-0.5 ALKALINE PHOSPHATASE (BEAKER) (test txzb=004) 63 U/L 40-150 AST (SGOT) (BEAKER) (test bmni=570) 19 U/L 5-34 ALT (SGPT) (BEAKER) (test dkzl=559) 24 U/L 6-55 BASIC METABOLIC [id number] 06:32:00 Test Item Value Reference Range Comments SODIUM (BEAKER) (test 138 meq/L 136-145 mztn=149) POTASSIUM (BEAKER) (test 4.3 meq/L 3.5-5.1 bgvn=348) CHLORIDE (BEAKER) (test 106 meq/L 98-107 gnzm=940) CO2 (BEAKER) (test 25 meq/L 22-29 vbim=799) BLOOD UREA NITROGEN 21 mg/dL 7-21 (BEAKER) (test zneq=351) CREATININE (BEAKER) (test 0.81 mg/dL 0.57-1.25 cyos=778) GLUCOSE RANDOM (BEAKER) 93 mg/dL 70-105 (test ctce=434) CALCIUM (BEAKER) (test 9.0 mg/dL 8.4-10.2 pjad=468) EGFR (BEAKER) (test 91 mL/min/1.73 sq m ESTIMATED GFR IS NOT bxol=9426) ACCURATE CREATININE CLEARANCE IN PREDICTING GLOMERULAR FILTRATION RATE. ESTIMATED GFR IS NOT APPLICABLE FOR DIALYSIS PATIENTS. CBC W/PLT COUNT & AUTO [id number] 06:14:00 Test Item Value Reference Range Comments WHITE BLOOD CELL COUNT (BEAKER) (test asjg=666) 6.0 K/ L 3.5-10.5 RED BLOOD CELL COUNT (BEAKER) (test wrmz=755) 4.19 M/ L 4.63-6.08 HEMOGLOBIN (BEAKER) (test cmsv=100) 11.6 GM/DL 13.7-17.5 HEMATOCRIT (BEAKER) (test lcss=363) 36.4 % 40.1-51.0 MEAN CORPUSCULAR VOLUME (BEAKER) (test vuzp=043) 86.9 fL 79.0-92.2 MEAN CORPUSCULAR HEMOGLOBIN (BEAKER) (test 27.7 pg 25.7-32.2 jzlk=846) MEAN CORPUSCULAR HEMOGLOBIN CONC (BEAKER) (test 31.9 GM/DL 32.3-36.5 wdkh=537) RED CELL DISTRIBUTION WIDTH (BEAKER) (test 13.8 % 11.6-14.4 qxpa=603) PLATELET COUNT (BEAKER) (test qudh=720) 263 K/CU MM 150-450 MEAN PLATELET VOLUME (BEAKER) (test murc=281) 9.2 fL 9.4-12.4 NUCLEATED RED BLOOD CELLS (BEAKER) (test 0 /100 WBC 0-0 tkkv=237) NEUTROPHILS RELATIVE PERCENT (BEAKER) (test 60 % goje=281) LYMPHOCYTES RELATIVE PERCENT (BEAKER) (test 29 % lhud=033) MONOCYTES RELATIVE PERCENT (BEAKER) (test 7 % qoqu=982) EOSINOPHILS RELATIVE PERCENT (BEAKER) (test 4 % aiky=296) BASOPHILS RELATIVE PERCENT (BEAKER) (test 1 % lyvy=221) NEUTROPHILS ABSOLUTE COUNT (BEAKER) (test 3.58 K/ L 1.78-5.38 npgj=582) LYMPHOCYTES ABSOLUTE COUNT (BEAKER) (test 1.71 K/ L 1.32-3.57 lgfi=529) MONOCYTES ABSOLUTE COUNT (BEAKER) (test 0.39 K/ L 0.30-0.82 flqb=338) EOSINOPHILS ABSOLUTE COUNT (BEAKER) (test 0.22 K/ L 0.04-0.54 diwf=927) BASOPHILS ABSOLUTE COUNT (BEAKER) (test 0.03 K/ L 0.01-0.08 zndk=078) IMMATURE GRANULOCYTES-RELATIVE PERCENT (BEAKER) 1 % 0-1 (test odaz=6982) MRI Spine Lumbar w/o [id number] 13:46:08Patient: JANA DEUTSCH Date/Time09/11/2018 12:21 CDTReason for ExamMyelopathy/progressive motor dysfunctionReportMRI OF THE LUMBAR SPINE WITHOUT CONTRASTLOCATION: [id number]: Lumbar spine radiograph INDICATION: Myelopathy/progressive motor dysfunctionTechnique:Sagittal [...] (Electronic Signature): 09/11/2018 1:46 pmMRI Brain w/o [id number] 23:19:03Patient: JANA DEUTSCH Date/Time09/10/2018 20:41 CDTReason [...] Signature): 09/10/2018 11:19 pmXR Chest 1 View [id number] 21: 19:22Patient: JANA DEUTSCH Date/Time09/09/2018 21:02 CDTReason [...] 9: 16 pmSigned by: MD Arguello Daniel RSigned (Electronic Signature): 09/09/2018 9:19 pmCT Brain/Head w/o [id number] 21:02:57Patient: JANA DEUTSCH Date/Time09/09/2018 20:42 CDTReason for [...] : 09/09/2018 9:02 pmXR Spine Lumbosacral 4+ [id number] 12:00:52Patient: JANA DEUSTCH Date/ Time09/09/2018 11:47 CDTReason for ExamFallReportXR Spine [...] FSigned (Electronic Signature): 09/09/2018 12:00 pmXR Femur [id number] 11:59:24Patient: JANA DEUTSCH Date/Time09/09/2018 11:47 CDTReason for [...] Signature): 09/09/2018 11:59 amXR Knee 3 Views [id number] 11:57 :19Patient: JANA DEUTSCH Date/Time09/09/2018 11:47 CDTReason [...] (Electronic Signature): 09/09/2018 11:57 amCT Brain/Head w/o [id number] 17:56:57Patient: JANA DEUTSCH Date/Time09/04/2018 16:55 CDTReason for [...]
[2019-04-15 17:34] LABS: Barbiturates NEGATIVE (NEGATIVE); Benzodiazepines NEGATIVE (NEGATIVE); Cocaine NEGATIVE (NEGATIVE); METHAMPHETAM NEGATIVE (NEGATIVE); Methadone NEGATIVE (NEGATIVE); Opiates NEGATIVE (NEGATIVE); Phencyclidine NEGATIVE (NEGATIVE); THC Cannibis NEGATIVE (NEGATIVE)
[2019-04-15 17:39] LABS: Urine Blood NEGATIVE (NEG); Urine Glucose NEGATIVE (NEG); Urine Protein TRACE (NEG)
[2019-04-15] MEDS ORDERED: IBUPROFEN 200 MG TAB PO ONE (22:36)
[2019-04-15] MEDS ORDERED: IBUPROFEN 400 MG TAB ONE (22:36)
--- NOTE | 2019-04-16 08:41 | EKG ---
Test Date: 2019-04-15 Test Time: 15:04:30 [employer] Manager: MARCOS MEASUREMENT RESULTS: Intervals: Rate: 80 SD: 196 QRSD: 84 QT: 366 QTc: 422 Yawkey: P: 30 SD: 196 QRS: -22 T: 39 INTERPRETIVE STATEMENTS: Normal sinus rhythm Normal ECG Compared to ECG 04/07/2019 01:14:05 Incomplete right bundle-branch block no longer present Electronically Signed On 04-16-19 08:40:10 CDT by Torres Vizcarra
--- NOTE | 2019-04-16 14:50 | EDPHYS ---
Physician Documentation [facility] Name: Jose Thomas Age: 83 yrs Sex: Male : 1935 Arrival Date: 04/15/2019 Time: 15:00 Bed 20 Private MD: ED Physician Chino Alcaraz HPI: 04/15 18:05 This 83 yrs old Other Male presents to ER via EMS with complaints of Suicidal Ideation. kdr 18:05 The patient presents to the emergency department with depression, Lives alone and does kdr not know what he has to live for. Onset: The symptoms/episode began/occurred Long standing but intermittently worse. Past psychiatric history: Prior diagnosis: depression. Associated signs and symptoms: The patient has no apparent associated signs or symptoms. Severity of symptoms: At their worst the symptoms were mild moderate just prior to arrival, in the emergency department the symptoms are unchanged. The patient has experienced similar episodes in the past, multiple times, chronically. The patient has not recently seen a physician. States he has taken pills before in prior attempts and now considers running his wheel chair into traffice. Historical: - Allergies: 15:04 No Known Allergies; hj - Home Meds: 15:04 unknown BP med [Active]; hj - PMHx: 15:04 Arthritis; Bipolar disorder; Depression; CVA; diptheria; Headaches; Hypertension; hj Myocardial infarction; - PSHx: 15:04 None; hj - Immunization history:: Adult Immunizations not up to date. - Social history:: Smoking status: Patient/guardian denies using tobacco, Patient/guardian denies using alcohol. - Ebola Screening: : Patient negative for fever greater than or equal to 101.5 degrees Fahrenheit, and additional compatible Ebola Virus Disease symptoms Patient denies exposure to infectious person Patient denies travel to an Ebola-affected area in the 21 days before illness onset. ROS: 18:05 Constitutional: Negative for fever, chills, and weight loss, Eyes: Negative for injury, kdr pain, redness, and discharge, Neck: Negative for injury, pain, and swelling, Cardiovascular: Negative for chest pain, palpitations, and edema, Respiratory: Negative for shortness of breath, cough, wheezing, and pleuritic chest pain, Abdomen/GI: Negative for abdominal pain, nausea, vomiting, diarrhea, and constipation, Back: Negative for injury and pain, : Negative for injury, bleeding, discharge, and swelling, MS/Extremity: Negative for injury and deformity, Skin: Negative for injury, rash, and discoloration, Neuro: Negative for headache, weakness, numbness, tingling, and seizure activity. Allergy/Immunology: Negative for hives, rash, and allergies, Endocrine: Negative for neck swelling, polydipsia, polyuria, polyphagia, and marked weight changes, Hematologic/Lymphatic: Negative for swollen nodes, abnormal bleeding, and unusual bruising. 18:05 Psych: Positive for depression, suicide gesture, suicidal ideation, Negative for auditory hallucinations, visual hallucinations, homicidal ideation. Exam: 18:05 Constitutional: This is a well developed, well nourished obese patient who is awake, kdr alert, and in no acute distress. Eating a dinner tray Head/Face: Normocephalic, atraumatic. Chest/axilla: Normal chest wall appearance and motion. Nontender with no deformity. No lesions are appreciated. 18:05 Psych: Behavior/mood is pleasant, cooperative, Affect is calm, flat, Oriented to person, place, time, Patient having thoughts of suicide. Plan for suicide is Rolling his wheelchair into traffic Judgement / Insight is normal. Appears appropriate. Delusions/hallucinations are not present. Vital Signs: 15:05 Weight 108.86 kg; Height 5 ft. 10 in. (177.80 cm); Pain 8/10; hj 15:07 BP 135 / 71; Pulse 75; Resp 18; Temp 98.1; Pulse Ox 98% on R/A; Pain 10/10; em1 20:42 BP 134 / 66; Pulse 77; Resp 20; Temp 98.6; Pulse Ox 97% on R/A; em4 22:40 BP 144 / 81; Pulse 72; Resp 20; Temp 98.8; Pulse Ox 96% on R/A; em4 04/16 04:26 BP 120 / 59; Pulse 74; Resp 18; Temp 97.8(O); Pulse Ox 97% on R/A; em4 07:08 BP 116 / 70; Pulse 70; Resp 18; Temp 97.7; Pulse Ox 97% on R/A; Pain 7/10; em1 11:54 BP 104 / 88; Pulse 81; Resp 16; Pulse Ox 97% on R/A; ag 19:55 BP 106 / 54; Pulse 81; Resp 17; Temp 98.4; Pulse Ox 99% on R/A; aj 04/15 15:05 Body Mass Index 34.44 (108.86 kg, 177.80 cm) hj MDM: 04/15 18:05 Data reviewed: vital signs, nurses notes, lab test result(s). Counseling: I had a kdr detailed discussion with the patient and/or guardian regarding: the historical points, exam findings, and any diagnostic results supporting the discharge/admit diagnosis, lab results. 20:15 ED course: Pt calm and not requiring any special care, awaiting transfer. . rn 21:16 Patient medically screened. rn 04/16 14:44 ED course: The patient currently denies any suicidal ideation or other related plans. kdr However, the patient is without resources and the [facility] refuses to readmit him to the facility as he is unable to perform basic daily activities and self care without help. After discussion with Nancy/Case Management, no option other than admission at this time.. 04/15 15:03 Order name: Acetaminophen; [facility] 15:03 Order name: Basic Metabolic Panel; Complete Time: 18: [facility] 04/[facility] 15:03 Order name: CBC with Diff; Complete Time: 18:11 [facility] 04/15 15:03 Order name: ETOH Level; Complete [facility]: 18:11 [facility] 04/15 15:03 Order name: Hepatic Function; Complete [facility]: 18:11 [facility] 04/15 15:03 Order name: PT-INR; Complete [facility]: 18:11 [facility] 04/15 15:03 Order name: Ptt, Activated; Complete Time: 18:11 [facility] 04/15 15:03 Order name: Salicylate; Complete Time: 18:11 [facility] 04/[facility] 15:03 Order name: Urine Drug Screen; Complete Time: 18:11 [facility] 04/15 15:03 Order name: EKG; Complete [facility]: [facility]:04 [facility] 04/15 16:56 Order name: Diet Regular; Complete Time: 16:57 hj 04/15 17:10 Order name: Urine Dipstick--Ancillary (enter results); Complete Time: 18:11 ms 04/16 04:28 Order name: Diet Regular; Complete Time: 04:29 rr5 04/15 15:03 Order name: EKG - Nurse/Tech; Complete Time: 15:08 kdr 04/15 15:03 Order name: IV Saline Lock; Complete Time: 15:29 kdr 04/15 15:03 Order name: Labs collected and sent; Complete Time: 15:29 kdr 04/15 15:03 Order name: Urine Dipstick-Ancillary (obtain specimen); Complete Time: 16:57 kdr 04/16 11:29 Order name: Diet Regular; Complete Time: 11:29 ag 04/16 13:00 Order name: Social Service Consult EDNY 04/16 16:28 Order name: Diet Mech. Soft (chopped); Complete Time: 16:30 hb Administered Medications: 04/15 22:27 Drug: Motrin 600 mg Route: PO; rr5 23:30 Follow up: Response: No adverse reaction rr5 Disposition: 04/16/19 14:49 Hospitalization ordered by Holden Roth for Inpatient Admission. Preliminary diagnosis is Depression, SI. - Bed requested for Telemetry/MedSurg (Inpatient). - Status is Inpatient Admission. - Condition is Fair. - Problem is an ongoing problem. - Symptoms have improved. UTI on Admission? No Signatures: Dispatcher [employer] [facility] Jolene Cochran RN RN aj Rittger, Kevin, MD MD kdr Federico Quintanilla MD MD rn Joaquin, Henry, RN RN hj Garcia, Cindy, RN RN Leo Mcmahon RN RN rr5 Corrections: (The following items were deleted from the chart) 04/16 19:17 14:49 Hospitalization Ordered by Holden Roth MD for Inpatient Admission. Preliminary cg diagnosis is Depression, SI. Bed requested for Telemetry/MedSurg (Inpatient). Status is Inpatient Admission. Condition is Fair. Problem is an ongoing problem. Symptoms have improved. UTI on Admission? No. kdr 20:12 19:17 04/16/2019 14:49 Hospitalization Ordered by Holedn Roth MD for Inpatient aj Admission. Preliminary diagnosis is Depression, SI. Bed requested for Telemetry/MedSurg (Inpatient). Status is Inpatient Admission. Condition is Fair. Problem is an ongoing problem. Symptoms have improved. UTI on Admission? No. cg
--- NOTE | 2019-04-16 14:50 | ER ---
Nurse's Notes [facility] Name: Jose Thomas Age: 83 yrs Sex: Male : 1935 Arrival Date: 04/15/2019 Time: 15:00 Bed 20 Private MD: Diagnosis: Depression, SI Presentation: 04/15 15:00 Presenting complaint: EMS states: pt lives at [facility], states "im very hj depressed, i have chronic pain issues on my R knee and back, im tired of dealing with it, i want to hurt myself by riding on my wheelchair on the road and being hit by a vehicle" A\\T\\O x 4 in triage; denies hallucinations and delusions;. Transition of care: patient was not received from another setting of care. Onset of symptoms was April 15, 2019. Risk Assessment: Do you want to hurt yourself or someone else? Patient reports desire/thoughts of hurting themselves or someone else. Provider notified. Initial Sepsis Screen: Does the patient meet any 2 criteria? No. Patient's initial sepsis screen is negative. Does the patient have a suspected source of infection? No. Patient's initial sepsis screen is negative. Care prior to arrival: None. 15:00 Method Of Arrival: EMS: [facility] 15:00 Acuity: HAO 2 hj Triage Assessment: 15:05 General: Appears in no apparent distress. uncomfortable, Behavior is calm, cooperative, hj appropriate for age. Pain: Complains of pain in R knee and back. Historical: - Allergies: 15:04 No Known Allergies; hj - Home Meds: 15:04 unknown BP med [Active]; hj - PMHx: 15:04 Arthritis; Bipolar disorder; Depression; CVA; diptheria; Headaches; Hypertension; hj Myocardial infarction; - PSHx: 15:04 None; hj - Immunization history:: Adult Immunizations not up to date. - Social history:: Smoking status: Patient/guardian denies using tobacco, Patient/guardian denies using alcohol. - Ebola Screening: : Patient negative for fever greater than or equal to 101.5 degrees Fahrenheit, and additional compatible Ebola Virus Disease symptoms Patient denies exposure to infectious person Patient denies travel to an Ebola-affected area in the 21 days before illness onset. Screenin:05 Abuse screen: Denies threats or abuse. Denies injuries from another. Nutritional hj screening: No deficits noted. Tuberculosis screening: No symptoms or risk factors identified. Fall Risk None identified. Assessment: 15:15 General: Appears in no apparent distress. uncomfortable, Behavior is calm, cooperative, hj appropriate for age. Pain: Complains of pain in R knee and back. Neuro: Level of Consciousness is awake, alert, obeys commands, Oriented to person, place, time, situation, Appropriate for age. Cardiovascular: Capillary refill < 3 seconds Patient's skin is warm and dry. Respiratory: Airway is patent Respiratory effort is even, unlabored, Respiratory pattern is regular, symmetrical. GI: No signs and/or symptoms were reported involving the gastrointestinal system. : No signs and/or symptoms were reported regarding the genitourinary system. EENT: No signs and/or symptoms were reported regarding the EENT system. Derm: No signs and/or symptoms reported regarding the dermatologic system. Musculoskeletal: Reports pain in R knee and back. 16:11 Reassessment: awaiting for provider to eval pt;. hj 17:30 Reassessment: Patient and/or family updated on plan of care and expected duration. Pain hj level reassessed. Patient is alert, oriented x 3, equal unlabored respirations, skin warm/dry/pink. awaiting results and POC:. 17:30 Reassessment: food tray provided;. hj 18:02 Reassessment: Patient and/or family updated on plan of care and expected duration. Pain hj level reassessed. Patient is alert, oriented x 3, equal unlabored respirations, skin warm/dry/pink. eating dinner in room;. 18:30 Reassessment: Patient and/or family updated on plan of care and expected duration. Pain hj level reassessed. Patient is alert, oriented x 3, equal unlabored respirations, skin warm/dry/pink. awaiting POC: sitter in front of room;. 19:15 General: Appears in no apparent distress. comfortable, Behavior is calm, cooperative, rr5 appropriate for age, Reports feels depressed. Pain: Complains of pain in back Pain does not radiate. Quality of pain is described as aching, Pain began gradually, Is chronic. Neuro: Level of Consciousness is awake, alert, obeys commands, Oriented to person, place, time, situation, Appropriate for age. Cardiovascular: Capillary refill < 3 seconds Patient's skin is warm and dry. Respiratory: Airway is patent Respiratory effort is even, unlabored, Respiratory pattern is regular, symmetrical. GI: No signs and/or symptoms were reported involving the gastrointestinal system. : No signs and/or symptoms were reported regarding the genitourinary system. EENT: No signs and/or symptoms were reported regarding the EENT system. Derm: No signs and/or symptoms reported regarding the dermatologic system. Musculoskeletal: Reports pain in back. 19:15 Reassessment: sitter at bedisde. rr5 20:15 Reassessment: Patient appears in no apparent distress at this time. No changes from rr5 previously documented assessment. Patient and/or family updated on plan of care and expected duration. Pain level reassessed. 21:35 Reassessment: [facility] staff came to examine the patient. lois from [facility] rr5 called and asked information about the patient. Patient denies pain at this time. 22:16 Reassessment: Patient appears in no apparent distress at this time. Patient and/or rr5 family updated on plan of care and expected duration. Pain level reassessed. Patient is alert, oriented x 3, equal unlabored respirations, skin warm/dry/pink. 23:30 Reassessment: Patient appears in no apparent distress at this time. calm, cooperative rr5 obeys command. no complaints made. 04/16 00:30 Reassessment: Patient appears in no apparent distress at this time. No changes from rr5 previously documented assessment. asleep on bed comfortably. sitter at bedside. 02:00 Reassessment: Patient appears in no apparent distress at this time. No changes from rr5 previously documented assessment. asleep on side lying position. breathing spontaneously at room air. 03:00 Reassessment: Patient appears in no apparent distress at this time. No changes from rr5 previously documented assessment. 04:00 Reassessment: Patient appears in no apparent distress at this time. Patient is alert, rr5 oriented x 3, equal unlabored respirations, skin warm/dry/pink. awake on bed. no complaints made. 05:00 Reassessment: Patient appears in no apparent distress at this time. No changes from rr5 previously documented assessment. 06:00 Reassessment: Patient appears in no apparent distress at this time. No changes from rr5 previously documented assessment. asleep on bed awaiting for mental facility acceptance. 08:05 General: Appears in no apparent distress. comfortable, well developed, Behavior is sv calm, cooperative, appropriate for age. Neuro: Level of Consciousness is awake, alert, obeys commands, Oriented to person, place, time, situation, Moves all extremities. Full function Gait is steady. Cardiovascular: Heart tones S1 S2 present Patient's skin is warm and dry. Pulses are 2+ in right radial artery and left radial artery. Respiratory: Airway is patent Respiratory effort is even, unlabored, Respiratory pattern is regular, symmetrical, Breath sounds are clear bilaterally. Derm: Skin is pink, warm \\T\\ dry. 08:06 Reassessment: Pt given breakfast tray. sv 09:19 Reassessment: Patient appears in no apparent distress at this time. No changes from sv previously documented assessment. Patient and/or family updated on plan of care and expected duration. Pain level reassessed. Patient is alert, oriented x 3, equal unlabored respirations, skin warm/dry/pink. 11:40 General: Appears in no apparent distress. comfortable, Behavior is calm, cooperative, aj appropriate for age. Neuro: Level of Consciousness is awake, alert, obeys commands, Oriented to person, place, time, situation, Appropriate for age. Respiratory: Airway is patent Respiratory effort is even, unlabored, Respiratory pattern is regular, symmetrical. GI: No signs and/or symptoms were reported involving the gastrointestinal system. : No deficits noted. No signs and/or symptoms were reported regarding the genitourinary system. Derm: Skin is intact, is healthy with good turgor, Skin is pink, warm \\T\\ dry. normal. 15:13 Reassessment: Contacted Maureen Stone, Building Equipment Inspector Officer for [facility] aj who stated, "I had worked with that gentleman about a year ago for a long time trying to get him back home to [place] and his family refuses to take him back.". 19:55 Reassessment: Patient appears in no apparent distress at this time. No changes from aj previously documented assessment. Patient and/or family updated on plan of care and expected duration. Pain level reassessed. Patient is alert, oriented x 3, equal unlabored respirations, skin warm/dry/pink. Patient denies pain at this time. Psych: 04/15 15:06 Subjective: Having thoughts of suicide. Subjective: Having thoughts of suicide. Plan hj for suicide is use a wheelchair and be hit my a vehicle. Objective: Patient is cooperative, Speech is normal, Affect is appropriate. Interventions: Removed personal items and placed in bag. Patient placed in hospital gown. Searched person for dangerous items. Urine collected and sent for urine drug test. Belonging list filled out. Suicide Risk Assessment: Sad Person Scale: Sex of patient: Male: Score 1 point. Age of patient: Score 1 point if patient is over 65. Depression: Score 1 point if signs of depression are present. Previous Attempt: Score 1 point if patient has previously attempted suicide. Substance Abuse: Score 0 point if patient does not abuse alcohol or drugs. Rational Thinking: Score 0 point if patient has rational thinking. Social Support: Score 1 point if social support is lacking and/or unavailable. Organized Plan: Score 1 point if patient had a plan in place. Relationship: Score 1 point if patient is , , , or for a single male Chronic Sickness: Score 1 point if patient has illness, chronic, debilitating, or severe. Safety Checks: Personal items have been removed. Door is open. No visitors are present at this time. Pt denies substance abuse. Commitment: Patient will be a voluntary commitment. Vital Signs: 15:05 Weight 108.86 kg; Height 5 ft. 10 in. (177.80 cm); Pain 8/10; hj 15:07 BP 135 / 71; Pulse 75; Resp 18; Temp 98.1; Pulse Ox 98% on R/A; Pain 10/10; em1 20:42 BP 134 / 66; Pulse 77; Resp 20; Temp 98.6; Pulse Ox 97% on R/A; em4 22:40 BP 144 / 81; Pulse 72; Resp 20; Temp 98.8; Pulse Ox 96% on R/A; em4 04/16 04:26 BP 120 / 59; Pulse 74; Resp 18; Temp 97.8(O); Pulse Ox 97% on R/A; em4 07:08 BP 116 / 70; Pulse 70; Resp 18; Temp 97.7; Pulse Ox 97% on R/A; Pain 7/10; em1 11:54 BP 104 / 88; Pulse 81; Resp 16; Pulse Ox 97% on R/A; ag 19:55 BP 106 / 54; Pulse 81; Resp 17; Temp 98.4; Pulse Ox 99% on R/A; aj 04/15 15:05 Body Mass Index 34.44 (108.86 kg, 177.80 cm) ED Course: 04/15 15:00 Patient arrived in ED. hj 15:02 Chino Alcaraz MD is Attending Physician. kdr 15:03 Triage completed. hj 15:06 Arm band placed on right wrist. hj 15:07 Patient has correct armband on for positive identification. Placed in gown. Bed in low hj position. Call light in reach. Side rails up X2. 15:08 Safety checks: Items removed: yes. Door open/sign placed on door: yes. Family/friend em1 present: no. Sitter present: Yes. 15:15 Safety checks: Items removed: yes. Door open/sign placed on door: yes. Family/friend em1 present: no. Sitter present: Yes. 15:23 EKG done, by chemical treatment plant technician. reviewed by Chino Alcaraz MD. at1 15:25 Initial lab(s) drawn, by wi, sent to lab. Inserted saline lock: 20 gauge in right hj antecubital area, using aseptic technique. Blood collected. 15:30 Jim Villagomez RN is Primary Nurse. 15:30 Safety checks: Items removed: yes. Door open/sign placed on door: yes. Family/friend em1 present: no. Sitter present: Yes. 15:45 Safety checks: Items removed: yes. Door open/sign placed on door: yes. Family/friend em1 present: no. Sitter present: Yes. 16:00 Safety checks: Items removed: yes. Door open/sign placed on door: yes. Family/friend em1 present: no. Sitter present: Yes. 16:04 Warm blanket given. em1 16:15 Safety checks: Items removed: yes. Door open/sign placed on door: yes. Family/friend em1 present: no. Sitter present: Yes. 16:30 Safety checks: Items removed: yes. Door open/sign placed on door: yes. Family/friend em1 present: no. Sitter present: Yes. 18:22 called [facility] to send an Windows Support Engineer to come evaluate the PT. ms 19:00 Safety Checks: Personal items have been removed. The door is open or patient has been rr5 placed in a hallway bed/chair. There are no family/friend visitors at this time Sitter present at this time. 19:04 Safety checks: Items removed: yes. Door open/sign placed on door: yes. Family/friend em4 present: no. Sitter present: Yes. 19:33 Safety checks: Items removed: yes. Door open/sign placed on door: yes. Family/friend em4 present: no. Sitter present: Yes. 19:45 Safety checks: Items removed: yes. Door open/sign placed on door: yes. Family/friend em4 present: no. Sitter present: Yes. 20:00 Safety Checks: Personal items have been removed. The door is open or patient has been rr5 placed in a hallway bed/chair. There are no family/friend visitors at this time Sitter present at this time. 20:01 Safety checks: Items removed: yes. Door open/sign placed on door: yes. Family/friend em4 present: no. Sitter present: Yes. 20:16 Safety checks: Items removed: yes. Door open/sign placed on door: yes. Family/friend em4 present: no. Sitter present: Yes. 20:27 Safety checks: Items removed: yes. Door open/sign placed on door: yes. Family/friend em4 present: no. Sitter present: Yes. No. 20:43 Safety checks: Items removed: yes. Door open/sign placed on door: yes. Family/friend em4 present: no. Sitter present: Yes. 21:00 Safety Checks: Personal items have been removed. The door is open or patient has been rr5 placed in a hallway bed/chair. There are no family/friend visitors at this time Sitter present at this time. 21:01 Safety checks: Items removed: yes. Door open/sign placed on door: yes. Family/friend em4 present: no. Sitter present: Yes. 21:18 Safety checks: Items removed: yes. Door open/sign placed on door: yes. Family/friend em4 present: no. Sitter present: Yes. 21:28 Safety checks: Items removed: yes. Door open/sign placed on door: yes. Family/friend em4 present: no. Sitter present: Yes. 22:00 Safety Checks: Personal items have been removed. The door is open or patient has been rr5 placed in a hallway bed/chair. There are no family/friend visitors at this time Sitter present at this time. 22:00 Safety checks: Items removed: yes. Door open/sign placed on door: yes. Family/friend em4 present: no. Sitter present: Yes. 22:34 Safety checks: Items removed: yes. Door open/sign placed on door: yes. Family/friend em4 present: no. Sitter present: Yes. 22:46 Safety checks: Items removed: yes. Door open/sign placed on door: yes. Family/friend em4 present: no. Sitter present: Yes. 23:00 Safety Checks: Personal items have been removed. The door is open or patient has been rr5 placed in a hallway bed/chair. There are no family/friend visitors at this time Sitter present at this time. 23:00 Safety checks: Items removed: yes. Door open/sign placed on door: yes. Family/friend em4 present: no. Sitter present: Yes. 23:15 Safety checks: Items removed: yes. Door open/sign placed on door: yes. Family/friend em4 present: no. Sitter present: Yes. 23:30 Safety checks: Items removed: yes. Door open/sign placed on door: yes. Family/friend em4 present: no. Sitter present: Yes. 23:45 Safety checks: Items removed: yes. Door open/sign placed on door: yes. Family/friend em4 present: no. Sitter present: Yes. 04/16 00:00 Safety Checks: Personal items have been removed. The door is open or patient has been rr5 placed in a hallway bed/chair. There are no family/friend visitors at this time Sitter present at this time. 00:03 Safety checks: Items removed: yes. Door open/sign placed on door: yes. Family/friend em4 present: no. Sitter present: Yes. 00:14 Safety checks: Items removed: yes. Door open/sign placed on door: yes. Family/friend em4 present: no. Sitter present: Yes. 00:30 Safety checks: Items removed: yes. Door open/sign placed on door: yes. Family/friend em4 present: no. Sitter present: Yes. 00:46 Safety checks: Items removed: yes. Door open/sign placed on door: yes. Family/friend em4 present: no. Sitter present: Yes. 01:00 Safety Checks: Personal items have been removed. The door is open or patient has been rr5 placed in a hallway bed/chair. There are no family/friend visitors at this time Sitter present at this time. 01:03 Safety checks: Items removed: yes. Door open/sign placed on door: yes. Family/friend em4 present: no. Sitter present: Yes. 01:16 Safety checks: Items removed: yes. Door open/sign placed on door: yes. Family/friend em4 present: no. Sitter present: Yes. 01:29 Safety checks: Items removed: yes. Door open/sign placed on door: yes. Family/friend em4 present: no. Sitter present: Yes. 01:46 Safety checks: Items removed: yes. Door open/sign placed on door: yes. Family/friend em4 present: no. Sitter present: Yes. 02:00 Safety Checks: Personal items have been removed. The door is open or patient has been rr5 placed in a hallway bed/chair. There are no family/friend visitors at this time Sitter present at this time. 02:00 Safety checks: Items removed: yes. Door open/sign placed on door: yes. Family/friend em4 present: no. Sitter present: Yes. 02:15 Safety checks: Items removed: yes. Door open/sign placed on door: yes. Family/friend em4 present: no. Sitter present: Yes. 02:31 Safety checks: Items removed: yes. Door open/sign placed on door: yes. Family/friend em4 present: no. Sitter present: Yes. 02:45 Safety checks: Items removed: yes. Door open/sign placed on door: yes. Family/friend em4 present: no. Sitter present: Yes. 03:00 Safety Checks: Personal items have been removed. The door is open or patient has been rr5 placed in a hallway bed/chair. There are no family/friend visitors at this time Sitter present at this time. 03:00 Safety checks: Items removed: yes. Door open/sign placed on door: yes. Family/friend em4 present: no. Sitter present: Yes. 03:14 Safety checks: Items removed: yes. Door open/sign placed on door: yes. Family/friend em4 present: no. Sitter present: Yes. 03:28 Safety checks: Items removed: yes. Door open/sign placed on door: yes. Family/friend em4 present: no. Sitter present: Yes. 03:42 Safety checks: Items removed: yes. Door open/sign placed on door: yes. Family/friend em4 present: no. Sitter present: Yes. 03:57 Safety checks: Items removed: yes. Door open/sign placed on door: yes. Family/friend em4 present: no. Sitter present: Yes. 04:00 Safety Checks: Personal items have been removed. The door is open or patient has been rr5 placed in a hallway bed/chair. There are no family/friend visitors at this time Sitter present at this time. 04:15 Safety checks: Items removed: yes. Door open/sign placed on door: yes. Family/friend em4 present: no. Sitter present: Yes. 04:50 Safety checks: Items removed: yes. Door open/sign placed on door: yes. Family/friend em4 present: no. Sitter present: Yes. 05:00 Safety Checks: Personal items have been removed. The door is open or patient has been rr5 placed in a hallway bed/chair. There are no family/friend visitors at this time Sitter present at this time. 05:00 Safety checks: Items removed: yes. Door open/sign placed on door: yes. Family/friend em4 present: no. Sitter present: Yes. 05:15 Safety checks: Items removed: yes. Door open/sign placed on door: yes. Family/friend em4 present: no. Sitter present: Yes. 05:28 Safety checks: Items removed: yes. Safety checks: Door open/sign placed on door: yes. em4 Family/friend present: no. Sitter present: Yes. 05:43 Safety checks: Items removed: yes. Door open/sign placed on door: yes. Family/friend em4 present: no. Sitter present: Yes. 06:00 Safety Checks: Personal items have been removed. The door is open or patient has been rr5 placed in a hallway bed/chair. There are no family/friend visitors at this time Sitter present at this time. 06:00 Safety checks: Items removed: yes. Door open/sign placed on door: yes. Family/friend em4 present: no. Sitter present: Yes. 06:14 Safety checks: Items removed: yes. Door open/sign placed on door: yes. Family/friend em4 present: no. Sitter present: Yes. 06:29 Safety checks: Items removed: yes. Door open/sign placed on door: yes. Family/friend em4 present: no. Sitter present: Yes. 06:45 Safety checks: Items removed: yes. Door open/sign placed on door: yes. Family/friend em4 present: no. Sitter present: Yes. 06:53 Safety checks: Items removed: yes. Door open/sign placed on door: yes. Family/friend em4 present: no. Sitter present: Yes. 07:00 Safety Checks: Personal items have been removed. The door is open or patient has been rr5 placed in a hallway bed/chair. There are no family/friend visitors at this time Sitter present at this time. 07:00 Safety checks: Items removed: yes. Door open/sign placed on door: yes. Family/friend em1 present: no. Sitter present: Yes. 07:03 Attending Physician role handed off by Chino Alcaraz MD rn 07:03 Federico Quintanilla MD is Attending Physician. rn 07:13 faxed patient information to the following facilities in the attempt to transfer; [facility], [facility], [facility], [facility], [facility], [facility], [facility], [facility], [facility], [facility], [facility], [facility] , [facility], [facility], [facility], and [facility]. 07:15 Safety checks: Items removed: yes. Door open/sign placed on door: yes. Family/friend em1 present: no. Sitter present: Yes. 07:30 Safety checks: Items removed: yes. Door open/sign placed on door: yes. Family/friend em1 present: no. Sitter present: Yes. 07:42 Primary Nurse role handed off by Jim Villagomez RN sv 07:42 Ling Royal RN is Primary Nurse. sv 07:45 Safety checks: Items removed: yes. Door open/sign placed on door: yes. Family/friend em1 present: no. Sitter present: Yes. 07:50 Attending Physician role handed off by Federico Quintanilla MD [facility] 07:50 Chino Alcaraz MD is Attending Physician. kdr 07:58 Diet tray given. em1 08:00 Safety checks: Items removed: yes. Door open/sign placed on door: yes. Family/friend em1 present: no. Sitter present: Yes. 08:15 Safety checks: Items removed: yes. Door open/sign placed on door: yes. Family/friend em1 present: no. Sitter present: Yes. 08:30 Safety checks: Items removed: yes. Door open/sign placed on door: yes. Family/friend em1 present: no. Sitter present: Yes. 08:45 Safety checks: Items removed: yes. Door open/sign placed on door: yes. Family/friend em1 present: no. Sitter present: Yes. 09:00 Safety checks: Items removed: yes. Door open/sign placed on door: yes. Family/friend em1 present: no. Sitter present: Yes. 09:03 Head of bed lowered. Turned to back. em1 09:15 Safety checks: Items removed: yes. Door open/sign placed on door: yes. Family/friend em1 present: no. Sitter present: Yes. 09:30 Safety checks: Items removed: yes. Door open/sign placed on door: yes. Family/friend em1 present: no. Sitter present: Yes. 09:45 Safety checks: Items removed: yes. Safety checks: Door open/sign placed on door: ag Family/friend present: no. Sitter present:. Side rails up X2. 10:00 Safety checks: Items removed: yes. Safety checks: Items removed: yes. Door open/sign ag placed on door: yes. Family/friend present: no. Sitter present: Yes. 10:00 Report given to Jolene RICE. sv 10:18 Safety checks: Items removed: yes. Door open/sign placed on door: yes. Family/friend ag present: no. Sitter present: Yes. 10:28 Safety checks: Items removed: yes. Safety checks: Door open/sign placed on door: yes. ag Family/friend present: no. Sitter present: Yes. Assisted with urinal. 10:45 Safety checks: Items removed: yes. Door open/sign placed on door: yes. Family/friend ag present: no. Sitter present: Yes. 11:00 Safety checks: Items removed: yes. Door open/sign placed on door: yes. Family/friend ag present: no. Sitter present: Yes. 11:15 Safety checks: Items removed: yes. Door open/sign placed on door: yes. Family/friend ag present: no. Sitter present: Yes. 11:29 Jolene Cochran RN is Primary Nurse. 11:30 Safety checks: Items removed: yes. Door open/sign placed on door: yes. Family/friend ag present: no. Sitter present: Yes. 11:45 Safety checks: Items removed: yes. Door open/sign placed on door: yes. Family/friend ag present: no. Sitter present: Yes. 12:00 Safety checks: Items removed: yes. Door open/sign placed on door: no. Family/friend ag present: no. Sitter present: Yes. Other: Close door to block the noise so he can try to sleep. 12:15 Safety checks: Items removed: yes. Door open/sign placed on door: no. Family/friend ag present: no. Sitter present: Yes. Assisted with urinal. Assisted with dressing. Repositioned patient. 12:29 Safety checks: Items removed: yes. Door open/sign placed on door: no. Family/friend ag present: no. Sitter present: Yes. 12:45 Safety checks: Items removed: yes. Door open/sign placed on door: no. Family/friend ag present: no. Sitter present: Yes. 13:00 Safety checks: Items removed: yes. Door open/sign placed on door: no. Family/friend ag present: no. Sitter present: Yes. 13:12 Safety checks: Items removed: yes. Door open/sign placed on door: no. Family/friend ag present: no. Sitter present: Yes. Diet: Patient given a regular meal tray. Tolerated well. 13:28 Safety checks: Items removed: yes. Door open/sign placed on door: no. Family/friend ag present: no. Sitter present: Yes. 13:43 called the [facility] and spoke with Gabriella who will call out the screener on eb call to come re evaluate the patient for potential discharge. 13:45 Safety checks: Items removed: yes. Door open/sign placed on door: no. Family/friend ag present: no. Sitter present: Yes. 13:56 Safety checks: Items removed: yes. Door open/sign placed on door: no. Family/friend ag present: no. Sitter present: Yes. 14:47 Holden Roth MD is Hospitalizing Provider. kdr 19:55 No provider procedures requiring assistance completed. IV discontinued. aj Administered Medications: 04/15 22:27 Drug: Motrin 600 mg Route: PO; rr5 23:30 Follow up: Response: No adverse reaction rr5 Intake: 19:35 voided freely rr5 Output: 19:35 Stool: 1; Other: 1; Total: 0ml. rr5 04/16 06:00 Urine: 550ml (Voided); Total: 550ml. rr5 08:06 Urine: 500ml (Voided); Total: 1050ml. em1 10:30 Urine: 300ml; Total: 1350ml. ag 12:30 Urine: 300ml (Voided); Total: 1650ml. ag 04/15 19:35 voided freely rr5 Outcome: 04/16 14:49 Decision to Hospitalize by Provider. kdr 19:56 Admitted to Med/surg accompanied by tech, via wheelchair, room 213, with chart, Report aj called to [facility] 19:56 Condition: good 19:56 Instructed on the need for admit. 20:12 Patient left the ED. tomer Signatures: Ling Royal RN RN sv Myers, Amanda, RN RN aj Rittger, Kevin, MD MD kdr Solis, Maria ms Nieto, Roman, MD MD rn Martinez, Eric em1 Jolene Merrill, appeals referee EKG Tat1 Afshin, Janice ag Jim Villagomez RN RN hj Botello, Elizabeth eb Roque, Raymond, RN RN rr5 Dat, Xochitl em4 Corrections: (The following items were deleted from the chart) 04/15 16:34 16:34 Safety checks: Items removed: yes. Door open/sign placed on door: yes. em1 Family/friend present: no. Sitter present: Yes. em1 23:00 22:59 Safety checks: Items removed: yes. Door open/sign placed on door: yes. em4 Family/friend present: no. Sitter present: Yes. em4 04/16 12:29 12:13 Safety checks: Items removed: yes. Door open/sign placed on door: no. ag Family/friend present: no. Sitter present: Yes. Other: Close door to block the noise so he can try to sleep ag
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
[2019-04-16] MEDS ORDERED: ACETAMINOPHEN 500 MG TAB PO PRN (20:33)
[2019-04-16] MEDS ORDERED: ONDANSETRON 4 MG/2 ML VIAL IV PRN (20:33)
[2019-04-16 21:09] VITALS: BMI 34.2
[2019-04-17 06:04] LABS: Absolute Lymphocytes (CBC) 0.9 K/uL (0.7-4.9); Absolute Monocytes 0.5 K/uL (0.1-1.3); Absolute Neutrophil 3.8 K/uL (1.8-8.0); Basophils % 0.6 % (0-1.3); Eosinophils % 9.9 % (0-4.4); Hematocrit 35.4 % (39.6-49.0); Lymphocytes % 15.6 % (15.3-44.8); MPV 8.1 fL (7.6-11.3); Monocytes % 8.2 % (3.3-12.3); RBC Red Blood Cell Count 4.36 M/uL (4.33-5.43)
[2019-04-17 06:25] LABS: Albumin 3.6 g/dL (3.4-5.0); Bilirubin Total 0.5 mg/dL (0.2-1.0); Potassium 4.1 mmol/L (3.5-5.1); Protein, Total 7.3 g/dL (6.4-8.2); Thyroid Stimulating Hormone 1.31 uIU/mL (0.360-3.740)
--- NOTE | 2019-04-17 15:10 | P.PN ---
Subjective Date of Service: 04/17/19 Chief Complaint: suicidal ideation Subjective: No new changes, Improving Review of Systems 10-point ROS is otherwise unremarkable Physical Examination - Vital Signs Temperature: 97.1 F Blood Pressure: 161/70 Pulse: 86 Respirations: 17 Pulse Ox (%): 95 - Physical Exam General: Alert, In no apparent distress, Oriented x3, Obese HEENT: Atraumatic, PERRLA, EOMI Neck: Supple, JVD not distended Respiratory: Clear to auscultation bilaterally, Normal air movement Cardiovascular: Regular rate/rhythm, Normal S1 S2 Gastrointestinal: Normal bowel sounds, Soft and benign, Non-distended, No tenderness Musculoskeletal: No tenderness Integumentary: No rashes Neurological: Normal speech, Normal tone, Normal affect - Studies Laboratory Tests 04/15/19 04/15/19 04/15/19 15:25 15:25 15:25 WBC 6.5 D RBC 4.45 Hgb 11.8 L Hct 36.7 L MCV 82.4 MCH 26.6 L MCHC 32.2 RDW 14.2 Plt Count 307 D MPV 8.0 Neutrophils % 74.0 H Lymphocytes % 12.0 L Monocytes % 7.4 Eosinophils % 6.3 H Basophils % 0.3 Absolute Neutrophils 4.8 Absolute Lymphocytes 0.8 Absolute Monocytes 0.5 Absolute Eosinophils 0.4 Absolute Basophils 0.0 PT INR APTT Sodium 140 Potassium 4.5 Chloride 108 H Carbon Dioxide 28 BUN 16 Creatinine 1.02 Estimated GFR 70 L Glucose 116 H Calcium 8.6 Total Bilirubin 0.2 Direct Bilirubin < 0.1 AST 20 ALT 23 Alkaline Phosphatase 86 Serum Total Protein 7.2 Albumin 3.6 Globulin 3.6 H Albumin/Globulin Ratio 1.0 L Urine pH Ur Specific [place] Urine Ketones Urine Blood Urine Nitrite Ur Leukocyte Esterase Urine Glucose Urine Total Protein Salicylates Opiates Screen Methadone Screen Acetaminophen < 20.0 Ur Barbiturates Screen Ur Phencyclidine Scrn Amphetamines Screen Benzodiazepines Screen Cocaine Screen Ur THC Screen Plasma/Serum Alcohol 4 H 04/15/19 04/15/19 04/15/19 15:25 15:25 17:00 WBC RBC Hgb Hct MCV MCH MCHC RDW Plt Count MPV Neutrophils % Lymphocytes % Monocytes % Eosinophils % Basophils % Absolute Neutrophils Absolute Lymphocytes Absolute Monocytes Absolute Eosinophils Absolute Basophils PT 11.3 INR 0.96 APTT 29.5 Sodium Potassium Chloride Carbon Dioxide BUN Creatinine Estimated GFR Glucose Calcium Total Bilirubin Direct Bilirubin AST ALT Alkaline Phosphatase Serum Total Protein Albumin Globulin Albumin/Globulin Ratio Urine pH Ur Specific [place] Urine Ketones Urine Blood Urine Nitrite Ur Leukocyte Esterase Urine Glucose Urine Total Protein Salicylates < 1.7 L Opiates Screen Negative Methadone Screen Negative Acetaminophen Ur Barbiturates Screen Negative Ur Phencyclidine Scrn Negative Amphetamines Screen Negative Benzodiazepines Screen Negative Cocaine Screen Negative Ur THC Screen Negative Plasma/Serum Alcohol 04/15/19 17:10 WBC RBC Hgb Hct MCV MCH MCHC RDW Plt Count MPV Neutrophils % Lymphocytes % Monocytes % Eosinophils % Basophils % Absolute Neutrophils Absolute Lymphocytes Absolute Monocytes Absolute Eosinophils Absolute Basophils PT INR APTT Sodium Potassium Chloride Carbon Dioxide BUN Creatinine Estimated GFR Glucose Calcium Total Bilirubin Direct Bilirubin AST ALT Alkaline Phosphatase Serum Total Protein Albumin Globulin Albumin/Globulin Ratio Urine pH 7.0 Ur Specific [place] 1.020 Urine Ketones Negative Urine Blood Negative Urine Nitrite Negative Ur Leukocyte Esterase Trace H Urine Glucose Negative Urine Total Protein Trace Salicylates Opiates Screen Methadone Screen Acetaminophen Ur Barbiturates Screen Ur Phencyclidine Scrn Amphetamines Screen Benzodiazepines Screen Cocaine Screen Ur THC Screen Plasma/Serum Alcohol Medications List Reviewed: Yes Assessment And Plan - Current Problems (Diagnosis) (1) Suicidal ideation Current Visit: Yes Status: Acute (2) Depression Onset Date: 12/01/18 Current Visit: No Status: Acute Qualifiers: Depression Type: major depressive disorder Major depression recurrence: recurrent Active/Remission status: currently active Major depression episode severity: moderate Qualified Code(s): F33.1 - Major depressive disorder, recurrent, moderate (3) Dyslipidemia Onset Date: 12/01/18 Current Visit: No Status: Acute (4) HTN (hypertension) Onset Date: 12/01/18 Current Visit: No Status: Acute Qualifiers: Hypertension type: essential hypertension Qualified Code(s): I10 - Essential (primary) hypertension - Plan Patient was reevaluated late yesterday by [facility]. Patient was not deemed suicidal. He does not have plans at this time. Patient waiting for placement. Hospice care team is involved searching for placement. Patient is stable from medical standpoint for [place]. Travel voucher arranged Will reach out to hospice care team for updates.
[2019-04-18] MEDS: TRAMADOL HCL 50 MG TAB PO PRN ×2 (04:29→17:05)
[2019-04-18 06:06] LABS: Absolute Monocytes 0.5 K/uL (0.1-1.3); Absolute Neutrophil 3.2 K/uL (1.8-8.0); Basophils % 0.7 % (0-1.3); Eosinophils % 7.5 % (0-4.4); Hematocrit 34.2 % (39.6-49.0); Lymphocytes % 19.7 % (15.3-44.8); MPV 7.8 fL (7.6-11.3); Monocytes % 9.5 % (3.3-12.3); RBC Red Blood Cell Count 4.25 M/uL (4.33-5.43)
[2019-04-18 06:27] LABS: Albumin 3.5 g/dL (3.4-5.0); Bilirubin Total 0.6 mg/dL (0.2-1.0); Potassium 4.1 mmol/L (3.5-5.1); Protein, Total 7.1 g/dL (6.4-8.2)
--- NOTE | 2019-04-18 16:39 | P.PN ---
Subjective Date of Service: 04/18/19 Chief Complaint: suicidal ideation no acute events overnight Review of Systems 10-point ROS is otherwise unremarkable Physical Examination - Vital Signs Temperature: 97.4 F Blood Pressure: 129/72 Pulse: 75 Respirations: 16 Pulse Ox (%): 97 - Physical Exam General: Alert, In no apparent distress, Oriented x3, Obese HEENT: Atraumatic, PERRLA, EOMI Neck: Supple, JVD not distended Respiratory: Clear to auscultation bilaterally, Normal air movement Cardiovascular: Regular rate/rhythm, Normal S1 S2 Gastrointestinal: Normal bowel sounds, Soft and benign, Non-distended, No tenderness Musculoskeletal: No tenderness Integumentary: No rashes Neurological: Normal speech, Normal tone, Normal affect - Studies Laboratory Last Values WBC 5.2 K/uL (4.3-10.9) 04/18/19 05:32 RBC 4.25 M/uL (4.33-5.43) L 04/18/19 05:32 Hgb 11.9 g/dL (13.6-17.9) L 04/18/19 05:32 Hct 34.2 % (39.6-49.0) L 04/18/19 05:32 MCV 80.5 fL (80-100) 04/18/19 05:32 MCH 28.1 pg (27.0-35.0) 04/18/19 05:32 MCHC 34.9 g/dL (32.0-36.0) 04/18/19 05:32 RDW 14.4 % (12.1-15.2) 04/18/19 05:32 Plt Count 278 K/uL (152-406) 04/18/19 05:32 MPV 7.8 fL (7.6-11.3) 04/18/19 05:32 Neutrophils % 62.6 % (41.7-73.7) 04/18/19 05:32 Lymphocytes % 19.7 % (15.3-44.8) 04/18/19 05:32 Monocytes % 9.5 % (3.3-12.3) 04/18/19 05:32 Eosinophils % 7.5 % (0-4.4) H 04/18/19 05:32 Basophils % 0.7 % (0-1.3) 04/18/19 05:32 Absolute Neutrophils 3.2 K/uL (1.8-8.0) 04/18/19 05:32 Absolute Lymphocytes 1.0 K/uL (0.7-4.9) 04/18/19 05:32 Absolute Monocytes 0.5 K/uL (0.1-1.3) 04/18/19 05:32 Absolute Eosinophils 0.4 K/uL (0-0.5) 04/18/19 05:32 Absolute Basophils 0.0 K/uL (0-0.5) 04/18/19 05:32 PT 11.3 SECONDS (9.5-12.5) 04/15/19 15:25 INR 0.96 04/15/19 15:25 APTT 29.5 SECONDS (24.3-36.9) 04/15/19 15:25 Sodium 140 mmol/L (136-145) 04/18/19 05:32 Potassium 4.1 mmol/L (3.5-5.1) 04/18/19 05:32 Chloride 108 mmol/L (98-107) H 04/18/19 05:32 Carbon Dioxide 25 mmol/L (21-32) 04/18/19 05:32 BUN 15 mg/dL (7-18) 04/18/19 05:32 Creatinine 1.04 mg/dL (0.55-1.3) 04/18/19 05:32 Estimated GFR 68 mL/min (=/>90) L 04/18/19 05:32 Glucose 119 mg/dL (74-106) H 04/18/19 05:32 Calcium 8.6 mg/dL (8.5-10.1) 04/18/19 05:32 Total Bilirubin 0.6 mg/dL (0.2-1.0) 04/18/19 05:32 Direct Bilirubin < 0.1 mg/dL (0-0.2) 04/15/19 15:25 AST 22 U/L (15-37) 04/18/19 05:32 ALT 24 U/L (12-78) 04/18/19 05:32 Alkaline Phosphatase 80 U/L (45-117) 04/18/19 05:32 Serum Total Protein 7.1 g/dL (6.4-8.2) 04/18/19 05:32 Albumin 3.5 g/dL (3.4-5.0) 04/18/19 05:32 Globulin 3.6 g/dL (2.3-3.5) H 04/18/19 05:32 Albumin/Globulin Ratio 1.0 (1.1-1.8) L 04/18/19 05:32 TSH 1.310 uIU/mL (0.360-3.740) 04/17/19 05:25 Urine pH 7.0 (5.0-7.0) 04/15/19 17:10 Ur Specific [place] 1.020 (1.005-1.030) 04/15/19 17:10 Urine Ketones Negative (NEG) 04/15/19 17:10 Urine Blood Negative (NEG) 04/15/19 17:10 Urine Nitrite Negative (NEG) 04/15/19 17:10 Ur Leukocyte Esterase Trace (NEG) H 04/15/19 17:10 Urine Glucose Negative (NEG) 04/15/19 17:10 Urine Total Protein Trace (NEG) 04/15/19 17:10 Salicylates < 1.7 mg/dL (2.8-20) L 04/15/19 15:25 Opiates Screen Negative (NEGATIVE) 04/15/19 17:00 Methadone Screen Negative (NEGATIVE) 04/15/19 17:00 Acetaminophen < 20.0 ug/mL (10.0-30.0) 04/15/19 15:25 Ur Barbiturates Screen Negative (NEGATIVE) 04/15/19 17:00 Ur Phencyclidine Scrn Negative (NEGATIVE) 04/15/19 17:00 Amphetamines Screen Negative (NEGATIVE) 04/15/19 17:00 Benzodiazepines Screen Negative (NEGATIVE) 04/15/19 17:00 Cocaine Screen Negative (NEGATIVE) 04/15/19 17:00 Ur THC Screen Negative (NEGATIVE) 04/15/19 17:00 Plasma/Serum Alcohol 4 mg/dL (<3) H 04/15/19 15:25 Medications List Reviewed: Yes Assessment And Plan - Current Problems (Diagnosis) (1) Suicidal ideation Current Visit: Yes Status: Acute (2) Depression Onset Date: 12/01/18 Current Visit: No Status: Acute Qualifiers: Depression Type: major depressive disorder Major depression recurrence: recurrent Active/Remission status: currently active Major depression episode severity: moderate Qualified Code(s): F33.1 - Major depressive disorder, recurrent, moderate (3) Dyslipidemia Onset Date: 12/01/18 Current Visit: No Status: Acute (4) HTN (hypertension) Onset Date: 12/01/18 Current Visit: No Status: Acute Qualifiers: Hypertension type: essential hypertension Qualified Code(s): I10 - Essential (primary) hypertension - Plan Patient was reevaluated by [facility]. Patient was not deemed suicidal. He does not have plans at this time. Patient waiting for placement. Hospice care team is involved searching for placement. Patient is stable from medical standpoint for [place]. Travel voucher arranged Will reach out to hospice care team for updates.
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
[2019-04-19] MEDS: TRAMADOL HCL 50 MG TAB PO PRN (11:36)
[2019-04-20] MEDS: TRAMADOL HCL 50 MG TAB PO PRN ×2 (04:34→16:09)
--- NOTE | 2019-04-20 14:49 | P.PN ---
Subjective Date of Service: 04/20/19 Chief Complaint: suicidal ideation Subjective: No C/O voiced Review of Systems 10-point ROS is otherwise unremarkable Physical Examination - Vital Signs Temperature: 97.6 F Blood Pressure: 109/74 Pulse: 75 Respirations: 18 Pulse Ox (%): 97 - Physical Exam General: Alert, In no apparent distress, Oriented x3 HEENT: Atraumatic, PERRLA, EOMI Neck: Supple, JVD not distended Respiratory: Clear to auscultation bilaterally, Normal air movement Cardiovascular: Regular rate/rhythm, Normal S1 S2 Gastrointestinal: Normal bowel sounds, No tenderness Musculoskeletal: No tenderness Integumentary: No rashes Neurological: Normal speech, Normal tone, Normal affect Lymphatics: No axilla or inguinal lymphadenopathy - Studies Medications List Reviewed: Yes Assessment And Plan - Plan - Current Problems (Diagnosis) (1) Suicidal ideation Current Visit: Yes Status: Acute (2) Depression Onset Date: 12/01/18 Current Visit: No Status: Acute Qualifiers: Depression Type: major depressive disorder Major depression recurrence: recurrent Active/Remission status: currently active Major depression episode severity: moderate Qualified Code(s): F33.1 - Major depressive disorder, recurrent, moderate (3) Dyslipidemia Onset Date: 12/01/18 Current Visit: No Status: Acute (4) HTN (hypertension) Onset Date: 12/01/18 Current Visit: No Status: Acute Qualifiers: Hypertension type: essential hypertension Qualified Code(s): I10 - Essential (primary) hypertension - Plan Patient was reevaluated by [facility]. Patient was not deemed suicidal. He does not have plans at this time. Patient waiting for placement. Social work/care team is involved searching for placement. Patient is stable from medical standpoint for [place]. Travel voucher will be arranged Will reach out to SW team for updates.
[2019-04-20 22:37] VITALS: O2SAT 95
[2019-04-21 05:32] VITALS: BP 133/66; TEMP 97.7
--- NOTE | 2019-04-21 10:42 | P.PN ---
Subjective Date of Service: 04/21/19 Chief Complaint: suicidal ideation Subjective: No C/O voiced Patient seen and examined at bedside. No family at bedside. Chart reviewed and case discussed with nursing staff. Negative as noted overnight. Continues remain stable. Discharge is pending placement/retirement. Review of Systems 10-point ROS is otherwise unremarkable Physical Examination - Vital Signs Temperature: 97.7 F Blood Pressure: 133/66 Pulse: 73 Respirations: 18 Pulse Ox (%): 97 - Physical Exam General: Alert, In no apparent distress HEENT: Atraumatic, PERRLA, EOMI Neck: Supple, JVD not distended Respiratory: Clear to auscultation bilaterally, Normal air movement Cardiovascular: Regular rate/rhythm, Normal S1 S2 Gastrointestinal: Normal bowel sounds, No tenderness Musculoskeletal: No tenderness Integumentary: No rashes Neurological: Normal speech, Normal tone, Normal affect Lymphatics: No axilla or inguinal lymphadenopathy - Studies Medications List Reviewed: Yes Assessment And Plan - Plan - Current Problems (Diagnosis) (1) Suicidal ideation Current Visit: Yes Status: Acute (2) Depression Onset Date: 12/01/18 Current Visit: No Status: Acute Qualifiers: Depression Type: major depressive disorder Major depression recurrence: recurrent Active/Remission status: currently active Major depression episode severity: moderate Qualified Code(s): F33.1 - Major depressive disorder, recurrent, moderate (3) Dyslipidemia Onset Date: 12/01/18 Current Visit: No Status: Acute (4) HTN (hypertension) Onset Date: 12/01/18 Current Visit: No Status: Acute Qualifiers: Hypertension type: essential hypertension Qualified Code(s): I10 - Essential (primary) hypertension - Plan Patient was reevaluated by [facility]. Patient was not deemed suicidal. He does not have plans at this time. Patient waiting for placement. Social work/care team is involved searching for placement. Patient is stable from medical standpoint for [place]. Travel voucher arranged
== END 2019-04-21 07:10 | disposition home or self-care (01) | DRG 885 ==
LOC: ER 14:58 → ERHOLD 04-16 14:57 → INTOOBSV 04-16 14:57 → OBSVTOIN 04-16 14:57 → 2ND 04-16 19:57
PROVIDERS: ADMIT Family Medicine; ATTEND Family Medicine
DX: F33.1 Major depressive disorder, recurrent, moderate (principal); R45.851 Suicidal ideations; E78.5 Hyperlipidemia, unspecified; I10 Essential (primary) hypertension; Z59.0 Homelessness; Z91.19 Patient's noncompliance with other medical treatment and regimen; Z86.73 Personal history of transient ischemic attack (TIA), and cerebral infarction without residual deficits
CPT/HCPCS: 36415; 80048; 80053; 80076; 80307; 80320; 80329; 81003; 84443; 85025; 85610; 85730; 93005; 94760; 97116; 97161; 97166; 97530; 99285